=== PATIENT | female | born 1950 | race Caucasian/White ===

== ENCOUNTER 2022-01-29 17:30 | Inpatient (IN) | payer MEDICARE, MEDICAID ==
[~2022-01-29] VITALS: Ht 175.3 cm; Wt 101.8 kg
--- NOTE | 2022-01-29 17:56 | PHYS DOC ---
General Adult EDM: Chief Complaint: MEDICAL CLEARANCE HPI: HPI: 70-year-old female presents for medical clearance of behavioral health admission. She has no specific complaints for me. She tells me that she "hurts all over". She tells me this is been going on for a long time and is not new. The facility reports that the patient has been manic and not sleeping. She has been verbally aggressive and concerned someone is coming after her. (IMANI LEWIS DO) Review of Systems: Review of Systems: Constitutional: Denies fever or chills Eyes: Denies change in visual acuity HENT: Denies nasal congestion or sore throat Respiratory: Denies cough or shortness of breath Cardiovascular: Denies chest pain or edema GI: Denies abdominal pain, nausea, vomiting, bloody stools or diarrhea : Denies dysuria Musculoskeletal: Denies back pain or joint pain Integument: Denies rash Neurologic: Denies headache, focal weakness or sensory changes Endocrine: Denies polyuria or polydipsia Lymphatic: Denies swollen glands Psychiatric: Denies depression or anxiety (IMANI LEWIS DO) Physical Exam: PE: Constitutional: Well developed, well nourished, obese, no acute distress, non- toxic appearance. [] HENT: Normocephalic, atraumatic, bilateral external ears normal, oropharynx mois t, no oral exudates, nose normal. [] Eyes: PERRLA, EOMI, conjunctiva normal, no discharge. [] Neck: Normal range of motion, no tenderness, supple, no stridor. [] Cardiovascular: Heart rate regular rhythm, no murmur [] Lungs & Thorax: Bilateral breath sounds clear to auscultation [] Abdomen: Bowel sounds normal, soft, no tenderness, no masses, no pulsatile masses. [] Skin: Warm, dry, no erythema, no rash. [] Back: No tenderness, no CVA tenderness. [] Extremities: No tenderness, no cyanosis, no clubbing, ROM intact, no edema. [] Neurologic: Alert and oriented X 3, normal motor function, normal sensory function, no focal deficits noted. [] Psychologic: Affect normal, judgement normal, mood normal. [] (IMANI LEWIS DO) EKG: EKG: [] (IMANI LEWIS DO) Radiology/Procedures: Radiology/Procedures: [] (IMANI LEWIS DO) Heart Score: C/O Chest Pain: N/A Risk Factors: Risk Factors: DM, Current or recent (<one month) smoker, HTN, HLP, family history of CAD, obesity. Risk Scores: Score 0 - 3: 2.5% MACE over next 6 weeks - Discharge Home Score 4 - 6: 20.3% MACE over next 6 weeks - Admit for Clinical Observation Score 7 - 10: 72.7% MACE over next 6 weeks - Early Invasive Strategies (IMANI LEWIS DO) Course & Med Decision Making: Course & Med Decision Making Pertinent Labs and Imaging studies reviewed. (See chart for details) The patient's work-up is pending. I am signing her out to the sales and marketing vice president at 1800. [] (IMANI LEWIS DO) Course & Med Decision Making Patient care handed off to me at checkout pending COVID status for transfer to [facility]. Patient alert and oriented no acute distress. Vital signs normal for mild hypertension. Laboratory analysis not concerning. COVID- negative. Patient transferred to [facility]. (SIM BRUOSSARD MD) Dragon Disclaimer: Dragon Disclaimer: This electronic medical record was generated, in whole or in part, using a voice recognition dictation system. (IMANI LEWIS DO) Departure Departure: Impression: Primary Impression: Medical clearance for psychiatric admission Disposition: HOME / SELF CARE / HOMELESS Admitting Physician: Other (SIM BROUSSARD MD) Condition: STABLE IMANI LEWIS DO January 29, 2022 17:56 SIM BROUSSARD MD January 29, 2022 21:16
[2022-01-29 18:24] LABS: CALCIUM 9.7 mg/dL (8.5-10.1); GFR 54.7; POTASSIUM 3.3 mmol/L (3.5-5.1)
[2022-01-29 18:26] LABS: BASO % 0 % (0-3); EOS % 0 % (0-3); HEMATOCRIT 41.2 % (36.0-47.0); HEMOGLOBIN 13.7 g/dL (12.0-15.5); LYMPH # 1.4 x10^3/uL (1.0-4.8); LYMPH % 18 % (24-48); MEAN CORPUSCULAR HEMOGLOBIN 30 pg (25-35); MEAN CORPUSCULAR HGB CONC 33 g/dL (31-37); MEAN CORPUSCULAR VOLUME 91 fL (79-100); MONO # 0.6 x10^3/uL (0.0-1.1); MONO % 8 % (0-9); NEUT # 5.8 x10^3uL (1.8-7.7); NEUT % 74 % (31-73); PLATELET COUNT 189 x10^3/uL (140-400); RED BLOOD COUNT 4.52 x10^6/uL (3.50-5.40); RED CELL DISTRIBUTION WIDTH 13.8 % (11.5-14.5); WHITE BLOOD COUNT 7.9 x10^3/uL (4.0-11.0)
[2022-01-29] MEDS ORDERED: BIOT5TAB PO (18:27)
[2022-01-29] MEDS ORDERED: ASPI-889 PO (18:27)
[2022-01-29] MEDS ORDERED: ACET500T68 PO (18:27)
[2022-01-29] MEDS ORDERED: DIVA125T PO (18:27)
[2022-01-29] MEDS ORDERED: NITR100C PO (18:27)
[2022-01-29] MEDS ORDERED: MULT-129 PO (18:27)
[2022-01-29] MEDS ORDERED: LORA-254 PO (18:27)
[2022-01-29] MEDS ORDERED: GLUC1KIT IM (18:27)
[2022-01-29] MEDS ORDERED: HALO5TAB PO (18:27)
[2022-01-29] MEDS ORDERED: TRAZ-120 PO ×2 (18:27→22:45)
[2022-01-29] MEDS ORDERED: MELA3TAB4 PO (18:27)
[2022-01-29] MEDS ORDERED: DEXT37.56 PO (18:27)
[2022-01-29] MEDS ORDERED: SENN1TAB37 PO (18:27)
[2022-01-29] MEDS ORDERED: CYAN100031 PO (18:27)
[2022-01-29] MEDS ORDERED: CARB1DRO40 EACHEYE (18:27)
[2022-01-29] MEDS ORDERED: METF500T16 PO (18:27)
[2022-01-29] MEDS ORDERED: AMAN100T PO (18:27)
[2022-01-29] MEDS ORDERED: INSU100V13 SQ (18:27)
[2022-01-29] MEDS ORDERED: ACYC-12 PO (18:27)
[2022-01-29] MEDS ORDERED: OLAN10TA69 PO (18:27)
[2022-01-29] MEDS ORDERED: LEVO50TA5 PO (18:27)
[2022-01-29] MEDS ORDERED: LACT1CAP6 PO (18:27)
[2022-01-29] MEDS ORDERED: POLY17PO5 PO (18:27)
[2022-01-29] MEDS ORDERED: SALI44.3 MM (18:27)
[2022-01-29] MEDS ORDERED: GLIM2TAB7 PO (18:27)
[2022-01-29] MEDS ORDERED: LURA80TA2 PO (18:27)
[2022-01-29] MEDS ORDERED: BISA10SU4 RC (18:27)
[2022-01-29] MEDS ORDERED: CHOL10004 PO (18:27)
[2022-01-29 18:29] LABS: ALBUMIN 3.9 g/dL (3.4-5.0); ALBUMIN/GLOBULIN RATIO 1.2 (1.0-1.7); TOTAL BILIRUBIN 0.6 mg/dL (0.2-1.0); TOTAL PROTEIN 7.1 g/dL (6.4-8.2)
[2022-01-29 18:46] LABS: CLARITY,URINE CLEAR; COLOR,URINE YELLOW; GLUCOSE,URINE NEG (NEG)
[2022-01-29 18:47] LABS: BACTERIA,URINE 0 /HPF (0-FEW); NITRITE,URINE NEG (NEG); RBC,URINE 0 /HPF (0-2); SQUAMOUS EPITHELIAL CELL,UR FEW /LPF; UROBILINOGEN,URINE 0.2 mg/dL (0.2 mg/dL); WBC,URINE 0 /HPF (0-4)
[2022-01-29] MEDS ORDERED: POTASSIUM CHLORIDE 20 MEQ TABLET.ER. PO ONE ×2 (21:30)
[2022-01-29 21:58] VITALS: BP 164/85
[2022-01-29] MEDS ORDERED: MAG HYDROX/AL HYDROX/SIMETH 30 ML ORAL.SUSP PO PRN (22:00)
[2022-01-29] MEDS ORDERED: METHYL SALICYLATE/MENTHOL TOPICAL OINTMENT 57GM TUBE. TP PRN (22:00)
[2022-01-29] MEDS ORDERED: ACETAMINOPHEN 325 MG TABLET PO PRN (22:00)
[2022-01-29] MEDS ORDERED: SALIVA STIMULANT AGENT 44ML SPRAY BOTTLE. MM PRN (22:15)
[2022-01-29] MEDS ORDERED: traZODone 50 MG TABLET. PO PRN (22:15)
[2022-01-29] MEDS ORDERED: BISACODYL 10 MG SUPP.RECT RC PRN (22:15)
[2022-01-29] MEDS ORDERED: GLUCAGON,HUMAN RECOMBINANT 1 MG KIT. IM PRN (23:15)
[2022-01-29] MEDS: POLYVINYL ALCOHOL/POVIDONE/PF OPHTH SOLUTION DROPERETTE. OU SCH (23:41)
[2022-01-29] MEDS: HALOPERIDOL 5 MG TABLET PO SCH (23:42)
[2022-01-29] MEDS: MELATONIN 3 MG TABLET PO SCH (23:42)
[2022-01-29] MEDS: SENNOSIDES/DOCUSATE 8.6/50MG TABLET. PO SCH (23:42)
[2022-01-29] MEDS: LORazepam 1 MG TABLET PO SCH (23:42)
[2022-01-29] MEDS: DIVALPROEX SODIUM 125 MG TABLET.DR. PO SCH (23:42)
[2022-01-29] MEDS: OLANZapine 10 MG TABLET PO SCH (23:43)
[2022-01-29] MEDS: traZODone 50 MG TABLET. PO SCH (23:43)
[2022-01-29] MEDS: ACYCLOVIR 200 MG CAPSULE PO SCH (23:44)
[2022-01-29] MEDS: INSULIN GLARGINE SYRINGE. SQ SCH (23:45)
[2022-01-30] MEDS: LEVOTHYROXINE 50 MCG TABLET PO SCH (06:00)
[2022-01-30 06:30] VITALS: BP 137/69
[2022-01-30 06:55] LABS: VAL ACID 27 mcg/mL (50-100)
[2022-01-30] MEDS: SENNOSIDES/DOCUSATE 8.6/50MG TABLET. PO SCH ×3 (09:00→20:32)
[2022-01-30] MEDS ORDERED: BIOTIN 5 MG PO SCH (09:00)
[2022-01-30] MEDS: HALOPERIDOL 5 MG TABLET PO SCH ×2 (09:15→20:34)
[2022-01-30] MEDS: MULTIVITAMIN with MINERAL TABLET. PO SCH (09:15)
[2022-01-30] MEDS: metFORMIN 500 MG TABLET PO SCH ×2 (09:16→17:35)
[2022-01-30] MEDS: ASPIRIN ENTERIC COATED 81 MG TABLET.DR. PO SCH (09:16)
[2022-01-30] MEDS: CHOLECALCIFEROL (VITAMIN D3) 1,000 UNIT TABLET PO SCH (09:16)
[2022-01-30] MEDS: OLANZapine 10 MG TABLET PO SCH ×2 (09:16→20:34)
[2022-01-30] MEDS: LORazepam 1 MG TABLET PO SCH ×2 (09:16→13:58)
[2022-01-30] MEDS: LACTOBACILLUS RHAMNOSUS GG 1 CAPSULE. PO SCH (09:16)
[2022-01-30] MEDS: POLYVINYL ALCOHOL/POVIDONE/PF OPHTH SOLUTION DROPERETTE. OU SCH ×2 (09:16→20:32)
[2022-01-30] MEDS: CYANOCOBALAMIN (VITAMIN B-12) 1,000 MCG TABLET. PO SCH (09:16)
[2022-01-30] MEDS: DIVALPROEX SODIUM 125 MG TABLET.DR. PO SCH ×2 (09:16→13:59)
[2022-01-30] MEDS: GLIMEPIRIDE 2 MG TABLET PO SCH (09:18)
[2022-01-30] MEDS: POLYETHYLENE GLYCOL 3350 17 GM PACKET. PO SCH ×2 (09:18→09:30)
[2022-01-30] MEDS: LURASIDONE 40 MG TABLET. PO SCH (09:23)
[2022-01-30] MEDS: ACYCLOVIR 200 MG CAPSULE PO SCH ×2 (09:24→20:32)
[2022-01-30 14:12] LABS: THYROXINE 8.7 ug/dL (4.5-12.0)
[2022-01-30] MEDS ORDERED: LORazepam 1 MG TABLET PO PRN (17:00)
[2022-01-30] MEDS: NITROFURANTOIN MONOHYD/M-CRYST 100 MG CAPSULE. PO SCH (20:32)
[2022-01-30] MEDS: MELATONIN 3 MG TABLET PO SCH (20:32)
[2022-01-30] MEDS: DIVALPROEX ER 250 MG TAB.ER.24H. PO SCH (20:33)
[2022-01-30] MEDS: traZODone 50 MG TABLET. PO SCH (20:34)
[2022-01-30] MEDS: INSULIN GLARGINE SYRINGE. SQ SCH (20:36)
[2022-01-30] MEDS ORDERED: SENNOSIDES/DOCUSATE 8.6/50MG TABLET. PO PRN (21:00)
[2022-01-30] MEDS ORDERED: POLYMYXIN/TRIMETHOPRIM OPHTH SOLUTION 10ML BOTTLE. OU SCH (21:00)
[2022-01-30 21:03] LABS: CHOLESTEROL/HDL RATIO 2.9; THYROID STIM HORMONE (TSH) 0.586 uIU/mL (0.358-3.740)
--- NOTE | 2022-01-30 21:48 | PDOC ---
Exam Note: Zay Note: Please also refer to the separate dictated note~for this date of service dictated separately.~Patient seen individually. Discussed the patient with Nursing staff reviewed the chart.~Reviewed interim history and current functioning. Reviewed vital signs,~Labs/ Radiology~and current medications noted below. Continue current treatment with the changes noted in the dictated addendum note Assessment: Vital Signs/I&O: Vital Signs Date Time Temp Pulse Resp B/P (MAP) Pulse Ox O2 Delivery O2 Flow Rate FiO2 01/30/22 06:30 97.6 88 20 137/69 (91) 96 Room Air I & O 01/29/22 01/29/22 01/30/22 15:00 23:00 07:00 Intake Total 0 ml 300 ml Balance 0 ml 300 ml Labs: Laboratory Tests Test 01/29/22 22:27 01/30/22 06:30 01/30/22 19:10 Glucose (Fingerstick) 169 mg/dL (70-99) H 165 mg/dL (70-99) H D-Dimer (Kalyani) 0.40 mg/L (0.00-0.50) Magnesium Level 1.9 mg/dL (1.8-2.4) Iron Level 33 ug/dL (50-170) L Total Iron Binding Capacity 252 ug/dL (250-450) Iron Saturation 13 % (15-34) L Triglycerides Level 101 mg/dL (0-150) Cholesterol Level 124 mg/dL (0-200) LDL Cholesterol, Calculated 61 mg/dL (0-100) VLDL Cholesterol, Calculated 20 mg/dL (0-40) Non-HDL Cholesterol Calculated 81 mg/dL (0-129) HDL Cholesterol 43 mg/dL (40-60) Cholesterol/HDL Ratio 2.9 25-Hydroxy Vitamin D Total 33.5 ng/mL (30-100) Thyroid Stimulating Hormone (TSH) 0.586 uIU/mL (0.358-3.740) Thyroxine (T4) 8.7 ug/dL (4.5-12.0) Total Triiodothyronine (TT3) 102 ng/dL (71-180) Valproic Acid Level 27 mcg/mL (50-100) L Valproic Acid Last Dose Date 01/29/22 Valproic Acid Last Dose Time 2100 Treponema pallidum Antibody Nonreactive (Nonreactive) Current Medications: Meds: Laboratory Tests Test 01/29/22 22:27 01/30/22 06:30 01/30/22 19:10 Glucose (Fingerstick) 169 mg/dL 165 mg/dL D-Dimer (Kalyani) 0.40 mg/L Magnesium Level 1.9 mg/dL Iron Level 33 ug/dL Total Iron Binding Capacity 252 ug/dL Iron Saturation 13 % Triglycerides Level 101 mg/dL Cholesterol Level 124 mg/dL LDL Cholesterol, Calculated 61 mg/dL VLDL Cholesterol, Calculated 20 mg/dL Non-HDL Cholesterol Calculated 81 mg/dL HDL Cholesterol 43 mg/dL Cholesterol/HDL Ratio 2.9 25-Hydroxy Vitamin D Total 33.5 ng/mL Thyroid Stimulating Hormone (TSH) 0.586 uIU/mL Thyroxine (T4) 8.7 ug/dL Total Triiodothyronine 102 ng/dL Valproic Acid (Depakene) Level 27 mcg/mL Valproic Acid Last Dose Date 01/29/22 Valproic Acid Last Dose Time 2100 Treponema pallidum Antibody Nonreactive Current Medications Medications (Trade) Dose Ordered Sig/Jhony Route PRN Reason Start Time Stop Time Status Last Admin Dose Admin Potassium Chloride (Klor-Con) 40 meq 1X ONCE PO 01/29/22 21:30 01/29/22 21:43 DC 01/29/22 21:32 Acetaminophen (Tylenol) 650 mg PRN Q6HRS PRN PO MILD PAIN / TEMP > 100.3'F 01/29/22 22:00 01/29/22 22:57 DC Multi-Ingredient Ointment (Analgesic [place]) 1 izzy PRN QID PRN TP MUSCLE PAIN 01/29/22 22:00 Al Hydroxide/Mg Hydroxide (Mylanta Plus Xs) 15 ml PRN AFTMEALHC PRN PO DYSPEPSIA 01/29/22 22:00 Magnesium Hydroxide (Milk Of Magnesia) 2,400 mg PRN QHS PRN PO 1ST CHOICE CONSTIPATION 01/29/22 22:00 Acetaminophen (Tylenol) 500 mg PRN Q4HRS PRN PO PAIN 01/29/22 22:15 Aspirin (Aspirin Enteric Coated) 81 mg DAILY PO 01/30/22 09:00 01/30/22 09:16 Bisacodyl (Dulcolax Supp) 10 mg PRN DAILY PRN RC 2ND CHOICE CONSTIPATION 01/29/22 22:15 Vitamin D (Vitamin D3) 2,000 unit DAILY PO 01/30/22 09:00 01/30/22 09:16 Glucose (Insta-Glucose) 15 gm PRN Q15MIN PRN PO low blood sugar 01/29/22 22:15 Divalproex Sodium (Depakote) 125 mg TID PO 01/29/22 23:00 01/30/22 16:59 DC 01/30/22 13:59 Glimepiride (Amaryl) 2 mg DAILY PO 01/30/22 09:00 01/30/22 09:18 Haloperidol (Haldol) 2.5 mg BID PO 01/29/22 23:00 01/30/22 20:34 Levothyroxine Sodium (Synthroid) 50 mcg DAILY06 PO 01/30/22 06:00 01/30/22 06:00 Lorazepam (Ativan) 1 mg TID PO 01/29/22 23:00 01/30/22 16:59 DC 01/30/22 13:58 Melatonin (Melatonin) 6 mg QHS PO 01/29/22 23:00 01/30/22 20:32 Metformin HCl (Glucophage) 1,000 mg BIDWMEALS PO 01/30/22 08:00 01/30/22 17:35 Olanzapine (ZyPREXA) 10 mg BID PO 01/29/22 23:00 01/30/22 20:34 Polyethylene Glycol (miraLAX) 17 gm DAILY PO 01/30/22 09:00 Saliva Substitute (Biotene Moisturizing Mouth) 1 spray PRN Q4HRS PRN MM DRY MOUTH 01/29/22 22:15 Senna/Docusate Sodium (Senna Plus) 1 tab BID PO 01/29/22 23:00 01/30/22 20:52 DC 01/29/22 23:42 Trazodone HCl (Desyrel) 50 mg PRN QHS PRN PO INSOMNIA 01/29/22 22:15 Trazodone HCl (Desyrel) 50 mg QHS PO 01/29/22 23:00 01/30/22 20:34 Acyclovir (Zovirax) 400 mg BID PO 01/29/22 23:00 01/30/22 20:32 Non-Formulary Medication (Biotin ) 5 mg DAILY PO 01/30/22 09:00 01/29/22 23:06 DC Artificial Tears (Refresh Classic) 1 drop BID OU 01/29/22 23:00 01/30/22 20:32 Cyanocobalamin (Vitamin B-12) 1,000 mcg DAILY PO 01/30/22 09:00 01/30/22 09:16 Glucagon (Glucagen Kit) 1 mg PRN DAILY PRN IM BS<60 and unresponsive or NPO 01/29/22 23:15 Insulin Glargine (Lantus Syringe) 30 unit QHS SQ 01/29/22 23:00 01/30/22 20:36 Lactobacillus Rhamnosus (Culturelle) 1 cap DAILY PO 01/30/22 09:00 01/30/22 09:16 Lurasidone HCl (Latuda) 80 mg DAILY PO 01/30/22 09:00 01/30/22 09:23 Multivitamins/ Calcium (Thera-M Plus) 1 tab DAILY PO 01/30/22 09:00 01/30/22 09:15 Nitrofurantoin Macrocrystals (Macrobid) 100 mg QHS PO 01/30/22 21:00 01/30/22 20:32 Lorazepam (Ativan) 0.5 mg BID PO 01/31/22 09:00 Lorazepam (Ativan) 1 mg PRN QHS PRN PO ANXIETY / AGITATION 01/30/22 17:00 Divalproex Sodium (Depakote Er) 750 mg QHS PO 01/30/22 21:00 01/30/22 20:33 Senna/Docusate Sodium (Senna Plus) 1 tab PRN BID PRN PO CONSTIPATION 01/30/22 21:00 Polymyxin/ Trimethoprim Sulfate (Polytrim) 1 drop QID OU 01/30/22 21:00 02/09/22 20:59 Current Medications Medications (Trade) Dose Ordered Sig/Jhony Route PRN Reason Start Time Stop Time Status Last Admin Dose Admin Aspirin (Aspirin Enteric Coated) 81 mg DAILY PO 01/30/22 09:00 01/30/22 09:16 Vitamin D (Vitamin D3) 2,000 unit DAILY PO 01/30/22 09:00 01/30/22 09:16 Divalproex Sodium (Depakote) 125 mg TID PO 01/29/22 23:00 01/30/22 16:59 DC 01/30/22 13:59 Glimepiride (Amaryl) 2 mg DAILY PO 01/30/22 09:00 01/30/22 09:18 Haloperidol (Haldol) 2.5 mg BID PO 01/29/22 23:00 01/30/22 20:34 Levothyroxine Sodium (Synthroid) 50 mcg DAILY06 PO 01/30/22 06:00 01/30/22 06:00 Lorazepam (Ativan) 1 mg TID PO 01/29/22 23:00 01/30/22 16:59 DC 01/30/22 13:58 Melatonin (Melatonin) 6 mg QHS PO 01/29/22 23:00 01/30/22 20:32 Metformin HCl (Glucophage) 1,000 mg BIDWMEALS PO 01/30/22 08:00 01/30/22 17:35 Olanzapine (ZyPREXA) 10 mg BID PO 01/29/22 23:00 01/30/22 20:34 Senna/Docusate Sodium (Senna Plus) 1 tab BID PO 01/29/22 23:00 01/30/22 20:52 DC 01/29/22 23:42 Trazodone HCl (Desyrel) 50 mg QHS PO 01/29/22 23:00 01/30/22 20:34 Acyclovir (Zovirax) 400 mg BID PO 01/29/22 23:00 01/30/22 20:32 Artificial Tears (Refresh Classic) 1 drop BID OU 01/29/22 23:00 01/30/22 20:32 Cyanocobalamin (Vitamin B-12) 1,000 mcg DAILY PO 01/30/22 09:00 01/30/22 09:16 Insulin Glargine (Lantus Syringe) 30 unit QHS SQ 01/29/22 23:00 01/30/22 20:36 Lactobacillus Rhamnosus (Culturelle) 1 cap DAILY PO 01/30/22 09:00 01/30/22 09:16 Lurasidone HCl (Latuda) 80 mg DAILY PO 01/30/22 09:00 01/30/22 09:23 Multivitamins/ Calcium (Thera-M Plus) 1 tab DAILY PO 01/30/22 09:00 01/30/22 09:15 Nitrofurantoin Macrocrystals (Macrobid) 100 mg QHS PO 01/30/22 21:00 01/30/22 20:32 Divalproex Sodium (Depakote Er) 750 mg QHS PO 01/30/22 21:00 01/30/22 20:33 I have reviewed the current psychotropics carefully including drug interactions. Risk benefit ratio favors no change other than as noted in my dictated progress note. Diagnosis: Problems: (1) Schizophrenia, chronic with acute exacerbation (2) Bipolar disorder, current episode mixed, severe, with psychotic features (3) Anxiety disorder, unspecified (4) Impulse control disorder, unspecified (5) Mild cognitive impairment PHI GLASER MD January 30, 2022 21:48
[2022-01-30 21:52] VITALS: BP 145/81
--- NOTE | 2022-01-30 22:30 | HP ---
DATE OF SERVICE: 01/30/2022 ADMIT DATE: 01/29/2022 PSYCHIATRIC ADMISSION HISTORY/EVALUATION IDENTIFYING DATA: The patient is a 71-year-old female referred to us from [facility] by her primary care physician and psychiatric nurse practitioner, Diego, on account of an acute exacerbation of her schizophrenia versus bipolar disorder, mixed with psychotic features. The patient was restless, constantly moving, having racing thoughts, had been awake for 3 nights. She was noted to be manic, thinking someone is coming to pick her up. She is obsessed with her body and saw a man coming to get her. She had failed outpatient psychiatric interventions resulting in this referral. Discussed the patient with Callie Trent, severity of illness coordinator, reviewed information from the senior care. Discussed with DEBORAH Lane and I had also been called as an emergency around 11:00 p.m. last night by Daria De La Rosa RN to clarify the patient's admitting psychotropic medications since there was an element of polypharmacy in it. CHIEF COMPLAINT: "I was diagnosed with bipolar disorder in my 50s. Yes, I have been manic lately. I need my medications adjusted. I can't take lithium because look what swelling it caused me." The patient was showing me her lower extremities as she said this. HISTORY OF PRESENT ILLNESS: The patient reportedly has a long history of bipolar disorder, recently getting more angry, aggressive, psychotic with marked mood swings, agitation, disruptive behaviors. She has had significant insomnia, appetite and weight are stable. No active suicidal or homicidal ideation. PAST PSYCHIATRIC HISTORY: As above. MEDICAL HISTORY: Positive for seizure disorder, chronic kidney disease, type 2 diabetes mellitus, catatonic disorder, obesity, urinary retention, history of rhabdomyolysis, sinusitis, viral herpes, chronic constipation, hypothyroidism, intervertebral disk degeneration, lumbago, sciatica, abnormal posture, GERD, dry eyes, history of recurrent falls. DRUG ALLERGIES: CODEINE. FAMILY HISTORY: Noncontributory. 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 No alcohol, drug abuse history. No physical, sexual or elder abuse history is noted. She is not known to be a perpetrator. REACTION TO HOSPITALIZATION: The patient accepting of it. REVIEW OF SYSTEMS: Ambulation impaired, in wheelchair. I met with her at length in her room. No CV, , pulmonary, eye system symptoms on review. MENTAL STATUS EXAM: The patient is oriented to herself, situation, knew she was admitted yesterday. Speech has some latency, coherent, often responses monosyllabic. Abstraction fair. Computation impaired. Language function intact. Mood and affect withdrawn. She is somewhat isolated. IMPRESSION: Schizoaffective disorder, bipolar type, manic versus mixed with psychotic features; history of schizophrenia with acute exacerbation; mild cognitive impairment; anxiety disorder, unspecified; impulse control disorder, unspecified. CURRENT PSYCHOTROPICS: She is currently on Depakote delayed release 125 mg t.i.d., Haldol 2.5 mg b.i.d., Ativan 1 mg t.i.d., Latuda 80 mg a day, Zyprexa 10 mg b.i.d., trazodone 50 mg at bedtime p.r.n., january repeat x1; melatonin 6 mg at bedtime. Accu-Cheks b.i.d. DIET: Diabetic. Ambulates with walker, wheelchair. CODE STATUS: Full code. PLAN: Admit to Geropsychiatry unit at [facility]. I discussed with DEBORAH Lane today. The patient appears oversedated and we will reduce her Ativan 1 mg t.i.d. down to 0.5 mg b.i.d., 1 mg at bedtime. Valproic acid level today is 27, subtherapeutic on Depakote delayed release 125 mg t.i.d. We will increase this to Depakote extended release 750 mg at bedtime. Check CBC, CMP, valproic acid level in 3 days. Maintain Haldol 2.5 mg b.i.d., Zyprexa 10 mg b.i.d., trazodone at bedtime p.r.n., Latuda 80 mg a day. Adjust further as clinically indicated. ESTIMATED LENGTH OF STAY: 10-12 days. DISPOSITION PLAN: Back to senior care when stable. SHAAN/NATTY DR: Kevin TID: [id number]
--- NOTE | 2022-01-31 00:53 | CONS ---
DATE OF CONSULTATION: 01/30/2022 ATTENDING PHYSICIAN: Dr. Glaser. We are asked to see this patient for medical consultation. HISTORY OF PRESENT ILLNESS: The patient is a 71-year-old female from a local alf at [place], [place]. She has a longstanding history of schizoaffective disorder along with bipolar disease. She has been very restless, constantly moving about, racing thoughts, paranoid, obsessed with her body. She is hallucinating and being uncooperative. She was admitted then to the [facility] for medical management. PAST MEDICAL HISTORY: Significant for catatonia, gastroesophageal reflux disease, dry eye syndrome and chronic kidney disease. ALLERGIES: SHE HAS ALLERGIES TO CODEINE, EXACT REACTION IS UNCLEAR. CURRENT MEDICATIONS: Reviewed from the alf includes daily acyclovir, aspirin, biotin, bisacodyl, carboxymethylcellulose eye drops, cyanocobalamin, dextrose, Depakote, glimepiride, Haldol 5 mg b.i.d., regular and Lantus insulin, lactobacillus, Synthroid, lorazepam, Latuda, melatonin, metformin, multivitamin, Macrodantin, olanzapine, MiraLax, senna, trazodone and vitamin D. SOCIAL HISTORY: She is a nonsmoker, nondrinker. FAMILY HISTORY: Unobtainable. REVIEW OF SYSTEMS: Unobtainable. She is self propelled and mainly gets about in a wheelchair. PHYSICAL EXAMINATION: GENERAL: When I saw her, this is an elderly female in a wheelchair. She is not aware of what the place and time. VITAL SIGNS: Initial vital signs showed a blood pressure 137/69 mmHg, pulse is 88 per minute and regular. She was afebrile, oxygen saturation 96% on room air. HEENT: Head is without trauma. Pupils are reactive. Sclerae are nonicteric. The oropharynx is clear. NECK: Supple. There is no thyromegaly nor bruits. CARDIOVASCULAR: Showed regular heart tones. No gallops. LUNGS: Otherwise, clear to auscultation. ABDOMEN: Obese, protuberant. No organomegaly. Bowel sounds are normoactive. EXTREMITIES: Showed 2+ edema. SKIN: Warm and dry. NEUROLOGIC: Affect is flat. She is alert and responsive. PERTINENT LABORATORY STUDIES: Admission hemoglobin was 13.7 g/dL with a white count of 7900. Electrolytes showed sodium 141 mEq, potassium 3.3 mEq, not symptomatic. Nonfasting blood sugar 101 mg/dL. Liver function, transaminases were all normal. Depakote level was 27. Urinalysis was clear. Serology: Rapid COVID negative. ASSESSMENT: 1. This 71-year-old female from a local alf has an exacerbation of her bipolar disorder. 2. Schizoaffective disorder, longstanding. 3. Morbid obesity. 4. Type 2 diabetes. 5. Essential hypertension. 6. Degenerative arthritis. RECOMMENDATIONS: 1. I have reviewed patient's medications and they should be continued at the same dosages. 2. She is stable from a medical standpoint. Thank you again for asking me to see this patient for medical consultation. We shall gladly follow along during her inpatient stay. YOVANNY DR: Ailyn TID: [phone] CC: PHI GLASER MD
[2022-01-31 02:07] LABS: HEMOGLOBIN A1C 5.4 % (4.8-5.6)
[2022-01-31] MEDS: LEVOTHYROXINE 50 MCG TABLET PO SCH (04:57)
[2022-01-31 06:04] VITALS: BP 110/64
[2022-01-31] MEDS: metFORMIN 500 MG TABLET PO SCH ×2 (08:24→17:39)
[2022-01-31] MEDS: CYANOCOBALAMIN (VITAMIN B-12) 1,000 MCG TABLET. PO SCH (08:24)
[2022-01-31] MEDS: MULTIVITAMIN with MINERAL TABLET. PO SCH (08:24)
[2022-01-31] MEDS: CHOLECALCIFEROL (VITAMIN D3) 1,000 UNIT TABLET PO SCH (08:24)
[2022-01-31] MEDS: ASPIRIN ENTERIC COATED 81 MG TABLET.DR. PO SCH (08:24)
[2022-01-31] MEDS: GLIMEPIRIDE 2 MG TABLET PO SCH (08:24)
[2022-01-31] MEDS: HALOPERIDOL 5 MG TABLET PO SCH ×2 (08:24→20:56)
[2022-01-31] MEDS: OLANZapine 10 MG TABLET PO SCH ×2 (08:25→20:57)
[2022-01-31] MEDS: ACYCLOVIR 200 MG CAPSULE PO SCH ×2 (08:25→20:57)
[2022-01-31] MEDS: LACTOBACILLUS RHAMNOSUS GG 1 CAPSULE. PO SCH (08:25)
[2022-01-31] MEDS: LORazepam 0.5 MG TABLET PO SCH ×2 (08:25→20:54)
[2022-01-31] MEDS: LURASIDONE 40 MG TABLET. PO SCH (08:25)
[2022-01-31] MEDS: POLYVINYL ALCOHOL/POVIDONE/PF OPHTH SOLUTION DROPERETTE. OU SCH ×2 (08:25→20:54)
[2022-01-31] MEDS: POLYETHYLENE GLYCOL 3350 17 GM PACKET. PO SCH (08:25)
[2022-01-31] MEDS: POLYMYXIN/TRIMETHOPRIM OPHTH SOLUTION 10ML BOTTLE. OD SCH ×4 (08:26→20:54)
[2022-01-31 16:13] VITALS: BP 157/87
[2022-01-31] MEDS: DIVALPROEX ER 250 MG TAB.ER.24H. PO SCH (20:54)
[2022-01-31] MEDS: traZODone 50 MG TABLET. PO SCH (20:55)
[2022-01-31] MEDS: MELATONIN 3 MG TABLET PO SCH (20:56)
[2022-01-31] MEDS: NITROFURANTOIN MONOHYD/M-CRYST 100 MG CAPSULE. PO SCH (20:56)
[2022-01-31] MEDS: INSULIN GLARGINE SYRINGE. SQ SCH (20:59)
--- NOTE | 2022-01-31 21:36 | PDOC ---
Exam Note: Zay Note: Please also refer to the separate dictated note~for this date of service dictated separately.~Patient seen individually. Discussed the patient with Nursing staff reviewed the chart.~Reviewed interim history and current functioning. Reviewed vital signs,~Labs/ Radiology~and current medications noted below. Continue current treatment with the changes noted in the dictated addendum note Assessment: Vital Signs/I&O: Vital Signs Date Time Temp Pulse Resp B/P (MAP) Pulse Ox O2 Delivery O2 Flow Rate FiO2 01/31/22 16:13 98.0 94 16 157/87 (110) 96 Room Air I & O 01/30/22 01/30/22 01/31/22 15:00 23:00 07:00 Intake Total 360 ml 600 ml Balance 360 ml 600 ml Labs: Laboratory Tests Test 01/31/22 07:33 01/31/22 19:10 Glucose (Fingerstick) 125 mg/dL (70-99) H 148 mg/dL (70-99) H Current Medications: Meds: Laboratory Tests Test 01/31/22 07:33 01/31/22 19:10 Glucose (Fingerstick) 125 mg/dL 148 mg/dL Current Medications Medications (Trade) Dose Ordered Sig/Jhony Route PRN Reason Start Time Stop Time Status Last Admin Dose Admin Potassium Chloride (Klor-Con) 40 meq 1X ONCE PO 01/29/22 21:30 01/29/22 21:43 DC 01/29/22 21:32 Acetaminophen (Tylenol) 650 mg PRN Q6HRS PRN PO MILD PAIN / TEMP > 100.3'F 01/29/22 22:00 01/29/22 22:57 DC Multi-Ingredient Ointment (Analgesic [place]) 1 izzy PRN QID PRN TP MUSCLE PAIN 01/29/22 22:00 Al Hydroxide/Mg Hydroxide (Mylanta Plus Xs) 15 ml PRN AFTMEALHC PRN PO DYSPEPSIA 01/29/22 22:00 Magnesium Hydroxide (Milk Of Magnesia) 2,400 mg PRN QHS PRN PO 1ST CHOICE CONSTIPATION 01/29/22 22:00 Acetaminophen (Tylenol) 500 mg PRN Q4HRS PRN PO PAIN 01/29/22 22:15 Aspirin (Aspirin Enteric Coated) 81 mg DAILY PO 01/30/22 09:00 01/31/22 08:24 Bisacodyl (Dulcolax Supp) 10 mg PRN DAILY PRN RC 2ND CHOICE CONSTIPATION 01/29/22 22:15 Vitamin D (Vitamin D3) 2,000 unit DAILY PO 01/30/22 09:00 01/31/22 08:24 Glucose (Insta-Glucose) 15 gm PRN Q15MIN PRN PO low blood sugar 01/29/22 22:15 Divalproex Sodium (Depakote) 125 mg TID PO 01/29/22 23:00 01/30/22 16:59 DC 01/30/22 13:59 Glimepiride (Amaryl) 2 mg DAILY PO 01/30/22 09:00 01/31/22 08:24 Haloperidol (Haldol) 2.5 mg BID PO 01/29/22 23:00 01/31/22 20:56 Levothyroxine Sodium (Synthroid) 50 mcg DAILY06 PO 01/30/22 06:00 01/31/22 04:57 Lorazepam (Ativan) 1 mg TID PO 01/29/22 23:00 01/30/22 16:59 DC 01/30/22 13:58 Melatonin (Melatonin) 6 mg QHS PO 01/29/22 23:00 01/31/22 20:56 Metformin HCl (Glucophage) 1,000 mg BIDWMEALS PO 01/30/22 08:00 01/31/22 17:39 Olanzapine (ZyPREXA) 10 mg BID PO 01/29/22 23:00 01/31/22 20:57 Polyethylene Glycol (miraLAX) 17 gm DAILY PO 01/30/22 09:00 01/31/22 08:25 Saliva Substitute (Biotene Moisturizing Mouth) 1 spray PRN Q4HRS PRN MM DRY MOUTH 01/29/22 22:15 Senna/Docusate Sodium (Senna Plus) 1 tab BID PO 01/29/22 23:00 01/30/22 20:52 DC 01/29/22 23:42 Trazodone HCl (Desyrel) 50 mg PRN QHS PRN PO INSOMNIA 01/29/22 22:15 Trazodone HCl (Desyrel) 50 mg QHS PO 01/29/22 23:00 01/31/22 20:55 Acyclovir (Zovirax) 400 mg BID PO 01/29/22 23:00 01/31/22 20:57 Non-Formulary Medication (Biotin ) 5 mg DAILY PO 01/30/22 09:00 01/29/22 23:06 DC Artificial Tears (Refresh Classic) 1 drop BID OU 01/29/22 23:00 01/31/22 20:54 Cyanocobalamin (Vitamin B-12) 1,000 mcg DAILY PO 01/30/22 09:00 01/31/22 08:24 Glucagon (Glucagen Kit) 1 mg PRN DAILY PRN IM BS<60 and unresponsive or NPO 01/29/22 23:15 Insulin Glargine (Lantus Syringe) 30 unit QHS SQ 01/29/22 23:00 01/31/22 20:59 Lactobacillus Rhamnosus (Culturelle) 1 cap DAILY PO 01/30/22 09:00 01/31/22 08:25 Lurasidone HCl (Latuda) 80 mg DAILY PO 01/30/22 09:00 01/31/22 08:25 Multivitamins/ Calcium (Thera-M Plus) 1 tab DAILY PO 01/30/22 09:00 01/31/22 08:24 Nitrofurantoin Macrocrystals (Macrobid) 100 mg QHS PO 01/30/22 21:00 01/31/22 20:56 Lorazepam (Ativan) 0.5 mg BID PO 01/31/22 09:00 01/31/22 20:54 Lorazepam (Ativan) 1 mg PRN QHS PRN PO ANXIETY / AGITATION 01/30/22 17:00 Divalproex Sodium (Depakote Er) 750 mg QHS PO 01/30/22 21:00 01/31/22 20:54 Senna/Docusate Sodium (Senna Plus) 1 tab PRN BID PRN PO CONSTIPATION 01/30/22 21:00 Polymyxin/ Trimethoprim Sulfate (Polytrim) 1 drop QID OU 01/30/22 21:00 01/30/22 23:42 DC 01/30/22 21:00 Polymyxin/ Trimethoprim Sulfate (Polytrim) 1 drop QID OD 01/31/22 09:00 02/10/22 08:59 01/31/22 20:54 Current Medications Medications (Trade) Dose Ordered Sig/Jhoyn Route PRN Reason Start Time Stop Time Status Last Admin Dose Admin Lorazepam (Ativan) 0.5 mg BID PO 01/31/22 09:00 01/31/22 20:54 Polymyxin/ Trimethoprim Sulfate (Polytrim) 1 drop QID OD 01/31/22 09:00 02/10/22 08:59 01/31/22 20:54 I have reviewed the current psychotropics carefully including drug interactions. Risk benefit ratio favors no change other than as noted in my dictated progress note. Diagnosis: Problems: (1) Schizophrenia, chronic with acute exacerbation (2) Impulse control disorder, unspecified (3) Anxiety disorder, unspecified (4) Bipolar disorder, current episode mixed, severe, with psychotic features (5) Mild cognitive impairment PHI GLASER MD January 31, 2022 21:36
[2022-02-01 06:08] VITALS: BP 147/74
[2022-02-01] MEDS: LEVOTHYROXINE 50 MCG TABLET PO SCH (06:11)
--- NOTE | 2022-02-01 06:36 | PDOC ---
Exam Note: Zay Note: This note is a late entry for 01/31/2022 covers elements not covered in my initial note. Subjective: The patient was seen individually on 01/31/2022, discussed and reviewed the chart with Guero CABRERA. The patient slept 6-1/4 hours previous night. She is well oriented to place and situation. She is pleasant. She is frequently calling out for help. She appears helpless but able to do more for herself including transfers and she makes it out to be. She is frequently wanting help with toileting. We have obtained past psychiatric records regarding treatment of her bipolar disorder. Review of Systems: Ambulation impaired in wheelchair. Hard of hearing. No CV, , pulmonary, eye system symptoms on review. Mental Status Exam: Patient is reasonably oriented to place and situation. Speech has some latency, coherent. Abstraction fair. Computation impaired. Language function intact. Mood and affect somewhat anxious, labile. Laboratory Data: Reviewed. Impression: Bipolar 1 disorder mixed with psychotic features. Anxiety disorder unspecified. Impulse control disorder unspecified Plan: Continue current psychotropics from initial note. Reviewed drug interactions, risk-benefit ratio. We have increase Depakote ER to 750 mg h.s. We will check labs and valproic acid level in 3 days. Adjust further as clinic ally indicated. Assessment: Vital Signs/I&O: Vital Signs Date Time Temp Pulse Resp B/P (MAP) Pulse Ox O2 Delivery O2 Flow Rate FiO2 02/01/22 06:08 97.8 95 20 147/74 (98) 96 01/31/22 16:13 Room Air I & O 01/31/22 01/31/22 02/01/22 15:00 23:00 07:00 Intake Total 720 ml 500 ml Balance 720 ml 500 ml Labs: Laboratory Tests Test 01/31/22 07:33 01/31/22 19:10 Glucose (Fingerstick) 125 mg/dL (70-99) H 148 mg/dL (70-99) H Current Medications: Meds: Current Medications Medications (Trade) Dose Ordered Sig/Jhony Route PRN Reason Start Time Stop Time Status Last Admin Dose Admin Lorazepam (Ativan) 0.5 mg BID PO 01/31/22 09:00 01/31/22 20:54 Polymyxin/ Trimethoprim Sulfate (Polytrim) 1 drop QID OD 01/31/22 09:00 02/10/22 08:59 01/31/22 20:54 I have reviewed the current psychotropics carefully including drug interactions. Risk benefit ratio favors no change other than as noted in my dictated progress note. Diagnosis: Problems: (1) Schizophrenia, chronic with acute exacerbation (2) Impulse control disorder, unspecified (3) Anxiety disorder, unspecified (4) Bipolar disorder, current episode mixed, severe, with psychotic features (5) Mild cognitive impairment PHI GLASER MD February 01, 2022 06:36
[2022-02-01] MEDS: ASPIRIN ENTERIC COATED 81 MG TABLET.DR. PO SCH (08:19)
[2022-02-01] MEDS: metFORMIN 500 MG TABLET PO SCH ×2 (08:19→17:05)
[2022-02-01] MEDS: OLANZapine 10 MG TABLET PO SCH ×2 (08:19→20:56)
[2022-02-01] MEDS: MULTIVITAMIN with MINERAL TABLET. PO SCH (08:19)
[2022-02-01] MEDS: ACYCLOVIR 200 MG CAPSULE PO SCH ×2 (08:20→20:56)
[2022-02-01] MEDS: CHOLECALCIFEROL (VITAMIN D3) 1,000 UNIT TABLET PO SCH (08:20)
[2022-02-01] MEDS: LORazepam 0.5 MG TABLET PO SCH ×2 (08:20→20:54)
[2022-02-01] MEDS: LACTOBACILLUS RHAMNOSUS GG 1 CAPSULE. PO SCH (08:20)
[2022-02-01] MEDS: CYANOCOBALAMIN (VITAMIN B-12) 1,000 MCG TABLET. PO SCH (08:21)
[2022-02-01] MEDS: HALOPERIDOL 5 MG TABLET PO SCH ×2 (08:21→20:55)
[2022-02-01] MEDS: POLYMYXIN/TRIMETHOPRIM OPHTH SOLUTION 10ML BOTTLE. OD SCH ×4 (08:21→20:54)
[2022-02-01] MEDS: LURASIDONE 40 MG TABLET. PO SCH (08:21)
[2022-02-01] MEDS: POLYVINYL ALCOHOL/POVIDONE/PF OPHTH SOLUTION DROPERETTE. OU SCH ×2 (08:21→20:54)
[2022-02-01] MEDS: GLIMEPIRIDE 2 MG TABLET PO SCH (08:21)
[2022-02-01] MEDS: POLYETHYLENE GLYCOL 3350 17 GM PACKET. PO SCH (08:21)
[2022-02-01 16:27] VITALS: BP 155/72
[2022-02-01] MEDS: traZODone 50 MG TABLET. PO SCH (20:55)
[2022-02-01] MEDS: DIVALPROEX ER 250 MG TAB.ER.24H. PO SCH (20:55)
[2022-02-01] MEDS: NITROFURANTOIN MONOHYD/M-CRYST 100 MG CAPSULE. PO SCH (20:56)
[2022-02-01] MEDS: MELATONIN 3 MG TABLET PO SCH (20:56)
[2022-02-01] MEDS: INSULIN GLARGINE SYRINGE. SQ SCH (21:02)
--- NOTE | 2022-02-01 21:47 | PDOC ---
Exam Note: Zay Note: Please also refer to the separate dictated note~for this date of service dictated separately.~Patient seen individually. Discussed the patient with Nursing staff reviewed the chart.~Reviewed interim history and current functioning. Reviewed vital signs,~Labs/ Radiology~and current medications noted below. Continue current treatment with the changes noted in the dictated addendum note Assessment: Vital Signs/I&O: Vital Signs Date Time Temp Pulse Resp B/P (MAP) Pulse Ox O2 Delivery O2 Flow Rate FiO2 02/01/22 16:27 97.6 107 16 155/72 (99) 97 Room Air I & O 01/31/22 01/31/22 02/01/22 15:00 23:00 07:00 Intake Total 720 ml 500 ml Balance 720 ml 500 ml Labs: Laboratory Tests Test 02/01/22 07:32 02/01/22 10:07 02/01/22 19:48 Glucose (Fingerstick) 150 mg/dL (70-99) H 197 mg/dL (70-99) H POC SARS CoV-2 Antigen Negative (NEGATIVE) Current Medications: Meds: Laboratory Tests Test 02/01/22 07:32 02/01/22 10:07 02/01/22 19:48 Glucose (Fingerstick) 150 mg/dL 197 mg/dL POC SARS CoV-2 Antigen Negative Current Medications Medications (Trade) Dose Ordered Sig/Jhony Route PRN Reason Start Time Stop Time Status Last Admin Dose Admin Potassium Chloride (Klor-Con) 40 meq 1X ONCE PO 01/29/22 21:30 01/29/22 21:43 DC 01/29/22 21:32 Acetaminophen (Tylenol) 650 mg PRN Q6HRS PRN PO MILD PAIN / TEMP > 100.3'F 01/29/22 22:00 01/29/22 22:57 DC Multi-Ingredient Ointment (Analgesic [place]) 1 izzy PRN QID PRN TP MUSCLE PAIN 01/29/22 22:00 Al Hydroxide/Mg Hydroxide (Mylanta Plus Xs) 15 ml PRN AFTMEALHC PRN PO DYSPEPSIA 01/29/22 22:00 Magnesium Hydroxide (Milk Of Magnesia) 2,400 mg PRN QHS PRN PO 1ST CHOICE CONSTIPATION 01/29/22 22:00 Acetaminophen (Tylenol) 500 mg PRN Q4HRS PRN PO PAIN 01/29/22 22:15 Aspirin (Aspirin Enteric Coated) 81 mg DAILY PO 01/30/22 09:00 02/01/22 08:19 Bisacodyl (Dulcolax Supp) 10 mg PRN DAILY PRN RC 2ND CHOICE CONSTIPATION 01/29/22 22:15 Vitamin D (Vitamin D3) 2,000 unit DAILY PO 01/30/22 09:00 02/01/22 08:20 Glucose (Insta-Glucose) 15 gm PRN Q15MIN PRN PO low blood sugar 01/29/22 22:15 Divalproex Sodium (Depakote) 125 mg TID PO 01/29/22 23:00 01/30/22 16:59 DC 01/30/22 13:59 Glimepiride (Amaryl) 2 mg DAILY PO 01/30/22 09:00 02/01/22 08:21 Haloperidol (Haldol) 2.5 mg BID PO 01/29/22 23:00 02/01/22 20:55 Levothyroxine Sodium (Synthroid) 50 mcg DAILY06 PO 01/30/22 06:00 02/01/22 06:11 Lorazepam (Ativan) 1 mg TID PO 01/29/22 23:00 01/30/22 16:59 DC 01/30/22 13:58 Melatonin (Melatonin) 6 mg QHS PO 01/29/22 23:00 02/01/22 20:56 Metformin HCl (Glucophage) 1,000 mg BIDWMEALS PO 01/30/22 08:00 02/01/22 17:05 Olanzapine (ZyPREXA) 10 mg BID PO 01/29/22 23:00 02/01/22 20:56 Polyethylene Glycol (miraLAX) 17 gm DAILY PO 01/30/22 09:00 02/01/22 08:21 Saliva Substitute (Biotene Moisturizing Mouth) 1 spray PRN Q4HRS PRN MM DRY MOUTH 01/29/22 22:15 Senna/Docusate Sodium (Senna Plus) 1 tab BID PO 01/29/22 23:00 01/30/22 20:52 DC 01/29/22 23:42 Trazodone HCl (Desyrel) 50 mg PRN QHS PRN PO INSOMNIA 01/29/22 22:15 Trazodone HCl (Desyrel) 50 mg QHS PO 01/29/22 23:00 02/01/22 20:55 Acyclovir (Zovirax) 400 mg BID PO 01/29/22 23:00 02/01/22 20:56 Non-Formulary Medication (Biotin ) 5 mg DAILY PO 01/30/22 09:00 01/29/22 23:06 DC Artificial Tears (Refresh Classic) 1 drop BID OU 01/29/22 23:00 02/01/22 20:54 Cyanocobalamin (Vitamin B-12) 1,000 mcg DAILY PO 01/30/22 09:00 02/01/22 08:21 Glucagon (Glucagen Kit) 1 mg PRN DAILY PRN IM BS<60 and unresponsive or NPO 01/29/22 23:15 Insulin Glargine (Lantus Syringe) 30 unit QHS SQ 01/29/22 23:00 02/01/22 21:02 Lactobacillus Rhamnosus (Culturelle) 1 cap DAILY PO 01/30/22 09:00 02/01/22 08:20 Lurasidone HCl (Latuda) 80 mg DAILY PO 01/30/22 09:00 02/01/22 08:21 Multivitamins/ Calcium (Thera-M Plus) 1 tab DAILY PO 01/30/22 09:00 02/01/22 08:19 Nitrofurantoin Macrocrystals (Macrobid) 100 mg QHS PO 01/30/22 21:00 02/01/22 20:56 Lorazepam (Ativan) 0.5 mg BID PO 01/31/22 09:00 02/01/22 20:54 Lorazepam (Ativan) 1 mg PRN QHS PRN PO ANXIETY / AGITATION 01/30/22 17:00 Divalproex Sodium (Depakote Er) 750 mg QHS PO 01/30/22 21:00 02/01/22 20:55 Senna/Docusate Sodium (Senna Plus) 1 tab PRN BID PRN PO CONSTIPATION 01/30/22 21:00 Polymyxin/ Trimethoprim Sulfate (Polytrim) 1 drop QID OU 01/30/22 21:00 01/30/22 23:42 DC 01/30/22 21:00 Polymyxin/ Trimethoprim Sulfate (Polytrim) 1 drop QID OD 01/31/22 09:00 02/10/22 08:59 02/01/22 20:54 Potassium Chloride (Klor-Con) 20 meq STK-MED ONCE PO 01/29/22 21:30 02/01/22 09:35 DC I have reviewed the current psychotropics carefully including drug interactions. Risk benefit ratio favors no change other than as noted in my dictated progress note. Diagnosis: Problems: (1) Schizophrenia, chronic with acute exacerbation (2) Impulse control disorder, unspecified (3) Anxiety disorder, unspecified (4) Bipolar disorder, current episode mixed, severe, with psychotic features (5) Mild cognitive impairment PHI GLASER MD February 01, 2022 21:46
[2022-02-02] MEDS: LEVOTHYROXINE 50 MCG TABLET PO SCH (05:28)
[2022-02-02] MEDS: ACETAMINOPHEN 500 MG TABLET PO PRN ×2 (05:33→20:54)
[2022-02-02 05:58] VITALS: BP 112/68
[2022-02-02 06:49] LABS: BASO % 0 % (0-3); EOS % 0 % (0-3); HEMATOCRIT 35.9 % (36.0-47.0); HEMOGLOBIN 12.2 g/dL (12.0-15.5); LYMPH # 1.4 x10^3/uL (1.0-4.8); LYMPH % 25 % (24-48); MEAN CORPUSCULAR HEMOGLOBIN 30 pg (25-35); MEAN CORPUSCULAR HGB CONC 34 g/dL (31-37); MEAN CORPUSCULAR VOLUME 89 fL (79-100); MONO # 0.5 x10^3/uL (0.0-1.1); MONO % 10 % (0-9); NEUT # 3.6 x10^3uL (1.8-7.7); NEUT % 65 % (31-73); PLATELET COUNT 191 x10^3/uL (140-400); RED BLOOD COUNT 4.03 x10^6/uL (3.50-5.40); RED CELL DISTRIBUTION WIDTH 13.5 % (11.5-14.5); WHITE BLOOD COUNT 5.5 x10^3/uL (4.0-11.0)
[2022-02-02 07:01] LABS: ALBUMIN 3.3 g/dL (3.4-5.0); ALBUMIN/GLOBULIN RATIO 1.2 (1.0-1.7); CALCIUM 8.9 mg/dL (8.5-10.1); GFR 54.7; POTASSIUM 3.3 mmol/L (3.5-5.1); TOTAL BILIRUBIN 0.5 mg/dL (0.2-1.0); TOTAL PROTEIN 6.1 g/dL (6.4-8.2)
--- NOTE | 2022-02-02 08:02 | PDOC ---
Exam Note: Zay Note: This note is a late entry for 02/01/2022 covers elements not covered in my initial note. Subjective: The patient was reviewed at treatment team meeting individually in the morning on 02/01/2022 with Andria Baron, Callie Mcintyre, and Medina Figueroa (social work job titles), Liliana, activity therapy, and Guero CABRERA, discussed and reviewed the chart. The patient slept 3-1/2 hours previous night. Average sleep 5 hours. Appetite 50%. We reviewed the patients history, diagnoses. We will obtain past psychiatric records from the [facility] and other psychiatrist that she has been treated by. She is having some diarrhea, on metformin. She has been incontinent. She also has some tremors and was told this may be due to a lingering effect from Covid. Reportedly her history indicates she had two episodes of catatonia when changes were made in her psychotropics with the [facility]. I met with her individually in the evening. Review of Systems: Ambulation impaired in wheelchair though physical therapy indicates she can transfer herself. Hard of hearing. No CV, , pulmonary, eye system symptoms on review. Mental Status Exam: Patient is reasonably oriented to herself and situation. Speech has some latency. Abstraction fair. Computation impaired. Language function intact. Mood and affect somewhat anxious, labile. Laboratory Data: Reviewed. Impression: Bipolar 1 disorder mixed with psychotic features. Anxiety disorder unspecified. Impulse control disorder unspecified. Plan: Continue current psychotropics mentioned in my initial note. Reviewed drug interactions, risk-benefit ratio. Adjust Depakote to reach therapeutic level. Discussed discharge, aftercare plans. Assessment: Vital Signs/I&O: Vital Signs Date Time Temp Pulse Resp B/P (MAP) Pulse Ox O2 Delivery O2 Flow Rate FiO2 02/02/22 05:58 97.6 92 18 112/68 (83) 94 Room Air I & O 02/01/22 02/01/22 02/02/22 15:00 23:00 07:00 Intake Total 720 ml 480 ml Balance 720 ml 480 ml Labs: Laboratory Tests Test 02/01/22 10:07 02/01/22 19:48 02/02/22 06:15 02/02/22 07:41 POC SARS CoV-2 Antigen Negative (NEGATIVE) Glucose (Fingerstick) 197 mg/dL (70-99) H 139 mg/dL (70-99) H White Blood Count 5.5 x10^3/uL (4.0-11.0) Red Blood Count 4.03 x10^6/uL (3.50-5.40) Hemoglobin 12.2 g/dL (12.0-15.5) Hematocrit 35.9 % (36.0-47.0) L Mean Corpuscular Volume 89 fL (79-100) Mean Corpuscular Hemoglobin 30 pg (25-35) Mean Corpuscular Hemoglobin Concent 34 g/dL (31-37) Red Cell Distribution Width 13.5 % (11.5-14.5) Platelet Count 191 x10^3/uL (140-400) Neutrophils (%) (Auto) 65 % (31-73) Lymphocytes (%) (Auto) 25 % (24-48) Monocytes (%) (Auto) 10 % (0-9) H Eosinophils (%) (Auto) 0 % (0-3) Basophils (%) (Auto) 0 % (0-3) Neutrophils # (Auto) 3.6 x10^3uL (1.8-7.7) Lymphocytes # (Auto) 1.4 x10^3/uL (1.0-4.8) Monocytes # (Auto) 0.5 x10^3/uL (0.0-1.1) Eosinophils # (Auto) 0.0 x10^3/uL (0.0-0.7) Basophils # (Auto) 0.0 x10^3/uL (0.0-0.2) Sodium Level 144 mmol/L (136-145) Potassium Level 3.3 mmol/L (3.5-5.1) L Chloride Level 107 mmol/L (98-107) Carbon Dioxide Level 27 mmol/L (21-32) Anion Gap 10 (6-14) Blood Urea Nitrogen 13 mg/dL (7-20) Creatinine 1.0 mg/dL (0.6-1.0) Estimated GFR (Cockcroft-Gault) 54.7 BUN/Creatinine Ratio 13 (6-20) Glucose Level 116 mg/dL (70-99) H Calcium Level 8.9 mg/dL (8.5-10.1) Total Bilirubin 0.5 mg/dL (0.2-1.0) Aspartate Amino Transferase (AST) 161 U/L (15-37) H Alanine Aminotransferase (ALT) 71 U/L (14-59) H Alkaline Phosphatase 87 U/L (46-116) Total Protein 6.1 g/dL (6.4-8.2) L Albumin 3.3 g/dL (3.4-5.0) L Albumin/Globulin Ratio 1.2 (1.0-1.7) Current Medications: I have reviewed the current psychotropics carefully including drug interactions. Risk benefit ratio favors no change other than as noted in my dictated progress note. Diagnosis: Problems: (1) Schizophrenia, catatonic, chronic with acute exacerbation (2) Impulse control disorder, unspecified (3) Anxiety disorder, unspecified (4) Bipolar disorder, current episode mixed, severe, with psychotic features (5) Mild cognitive impairment PHI GLASER MD February 02, 2022 08:02
[2022-02-02] MEDS: CHOLECALCIFEROL (VITAMIN D3) 1,000 UNIT TABLET PO SCH (08:12)
[2022-02-02] MEDS: CYANOCOBALAMIN (VITAMIN B-12) 1,000 MCG TABLET. PO SCH (08:12)
[2022-02-02] MEDS: MULTIVITAMIN with MINERAL TABLET. PO SCH (08:12)
[2022-02-02] MEDS: GLIMEPIRIDE 2 MG TABLET PO SCH (08:12)
[2022-02-02] MEDS: LORazepam 0.5 MG TABLET PO SCH ×2 (08:12→20:51)
[2022-02-02] MEDS: HALOPERIDOL 5 MG TABLET PO SCH (08:13)
[2022-02-02] MEDS: OLANZapine 10 MG TABLET PO SCH ×2 (08:13→20:51)
[2022-02-02] MEDS: ASPIRIN ENTERIC COATED 81 MG TABLET.DR. PO SCH (08:13)
[2022-02-02] MEDS: ACYCLOVIR 200 MG CAPSULE PO SCH ×2 (08:13→20:59)
[2022-02-02] MEDS: POLYETHYLENE GLYCOL 3350 17 GM PACKET. PO SCH (08:14)
[2022-02-02] MEDS: POLYMYXIN/TRIMETHOPRIM OPHTH SOLUTION 10ML BOTTLE. OD SCH ×5 (08:14→20:51)
[2022-02-02] MEDS: metFORMIN 500 MG TABLET PO SCH ×3 (08:14→17:43)
[2022-02-02] MEDS: LACTOBACILLUS RHAMNOSUS GG 1 CAPSULE. PO SCH (08:14)
[2022-02-02] MEDS: LURASIDONE 40 MG TABLET. PO SCH (08:14)
[2022-02-02] MEDS: POLYVINYL ALCOHOL/POVIDONE/PF OPHTH SOLUTION DROPERETTE. OU SCH ×2 (08:14→20:51)
[2022-02-02 08:21] LABS: VAL ACID 53 mcg/mL (50-100)
[2022-02-02 16:00] VITALS: BP 128/60
[2022-02-02] MEDS: DIVALPROEX ER 250 MG TAB.ER.24H. PO SCH (20:51)
[2022-02-02] MEDS: MELATONIN 3 MG TABLET PO SCH (20:51)
[2022-02-02] MEDS: NITROFURANTOIN MONOHYD/M-CRYST 100 MG CAPSULE. PO SCH (20:51)
[2022-02-02] MEDS: traZODone 50 MG TABLET. PO SCH (20:51)
[2022-02-02] MEDS: INSULIN GLARGINE SYRINGE. SQ SCH (21:01)
--- NOTE | 2022-02-02 21:41 | PDOC ---
Exam Note: Zay Note: Please also refer to the separate dictated note~for this date of service dictated separately.~Patient seen individually. Discussed the patient with Nursing staff reviewed the chart.~Reviewed interim history and current functioning. Reviewed vital signs,~Labs/ Radiology~and current medications noted below. Continue current treatment with the changes noted in the dictated addendum note Assessment: Vital Signs/I&O: Vital Signs Date Time Temp Pulse Resp B/P (MAP) Pulse Ox O2 Delivery O2 Flow Rate FiO2 02/02/22 16:00 98.4 94 20 128/60 (82) 94 Room Air I & O 02/01/22 02/01/22 02/02/22 15:00 23:00 07:00 Intake Total 720 ml 480 ml Balance 720 ml 480 ml Labs: Laboratory Tests Test 02/02/22 06:15 02/02/22 07:41 02/02/22 19:14 White Blood Count 5.5 x10^3/uL (4.0-11.0) Red Blood Count 4.03 x10^6/uL (3.50-5.40) Hemoglobin 12.2 g/dL (12.0-15.5) Hematocrit 35.9 % (36.0-47.0) L Mean Corpuscular Volume 89 fL (79-100) Mean Corpuscular Hemoglobin 30 pg (25-35) Mean Corpuscular Hemoglobin Concent 34 g/dL (31-37) Red Cell Distribution Width 13.5 % (11.5-14.5) Platelet Count 191 x10^3/uL (140-400) Neutrophils (%) (Auto) 65 % (31-73) Lymphocytes (%) (Auto) 25 % (24-48) Monocytes (%) (Auto) 10 % (0-9) H Eosinophils (%) (Auto) 0 % (0-3) Basophils (%) (Auto) 0 % (0-3) Neutrophils # (Auto) 3.6 x10^3uL (1.8-7.7) Lymphocytes # (Auto) 1.4 x10^3/uL (1.0-4.8) Monocytes # (Auto) 0.5 x10^3/uL (0.0-1.1) Eosinophils # (Auto) 0.0 x10^3/uL (0.0-0.7) Basophils # (Auto) 0.0 x10^3/uL (0.0-0.2) Sodium Level 144 mmol/L (136-145) Potassium Level 3.3 mmol/L (3.5-5.1) L Chloride Level 107 mmol/L (98-107) Carbon Dioxide Level 27 mmol/L (21-32) Anion Gap 10 (6-14) Blood Urea Nitrogen 13 mg/dL (7-20) Creatinine 1.0 mg/dL (0.6-1.0) Estimated GFR (Cockcroft-Gault) 54.7 BUN/Creatinine Ratio 13 (6-20) Glucose Level 116 mg/dL (70-99) H Calcium Level 8.9 mg/dL (8.5-10.1) Total Bilirubin 0.5 mg/dL (0.2-1.0) Aspartate Amino Transferase (AST) 161 U/L (15-37) H Alanine Aminotransferase (ALT) 71 U/L (14-59) H Alkaline Phosphatase 87 U/L (46-116) Total Protein 6.1 g/dL (6.4-8.2) L Albumin 3.3 g/dL (3.4-5.0) L Albumin/Globulin Ratio 1.2 (1.0-1.7) Valproic Acid Level 53 mcg/mL (50-100) Valproic Acid Last Dose Date 01/31/2022 Valproic Acid Last Dose Time 2100 Glucose (Fingerstick) 139 mg/dL (70-99) H 241 mg/dL (70-99) H Current Medications: Meds: Laboratory Tests Test 02/02/22 06:15 02/02/22 07:41 02/02/22 19:14 White Blood Count 5.5 x10^3/uL Red Blood Count 4.03 x10^6/uL Hemoglobin 12.2 g/dL Hematocrit 35.9 % Mean Corpuscular Volume 89 fL Mean Corpuscular Hemoglobin 30 pg Mean Corpuscular Hemoglobin Concent 34 g/dL Red Cell Distribution Width 13.5 % Platelet Count 191 x10^3/uL Neutrophils (%) (Auto) 65 % Lymphocytes (%) (Auto) 25 % Monocytes (%) (Auto) 10 % Eosinophils (%) (Auto) 0 % Basophils (%) (Auto) 0 % Neutrophils # (Auto) 3.6 x10^3uL Lymphocytes # (Auto) 1.4 x10^3/uL Monocytes # (Auto) 0.5 x10^3/uL Eosinophils # (Auto) 0.0 x10^3/uL Basophils # (Auto) 0.0 x10^3/uL Sodium Level 144 mmol/L Potassium Level 3.3 mmol/L Chloride Level 107 mmol/L Carbon Dioxide Level 27 mmol/L Anion Gap 10 Blood Urea Nitrogen 13 mg/dL Creatinine 1.0 mg/dL Estimated GFR (Cockcroft-Gault) 54.7 BUN/Creatinine Ratio 13 Glucose Level 116 mg/dL Calcium Level 8.9 mg/dL Total Bilirubin 0.5 mg/dL Aspartate Amino Transf (AST/SGOT) 161 U/L Alanine Aminotransferase (ALT/SGPT) 71 U/L Alkaline Phosphatase 87 U/L Total Protein 6.1 g/dL Albumin 3.3 g/dL Albumin/Globulin Ratio 1.2 Valproic Acid (Depakene) Level 53 mcg/mL Valproic Acid Last Dose Date 01/31/2022 Valproic Acid Last Dose Time 2100 Glucose (Fingerstick) 139 mg/dL 241 mg/dL Current Medications Medications (Trade) Dose Ordered Sig/Jhony Route PRN Reason Start Time Stop Time Status Last Admin Dose Admin Potassium Chloride (Klor-Con) 40 meq 1X ONCE PO 01/29/22 21:30 01/29/22 21:43 DC 01/29/22 21:32 Acetaminophen (Tylenol) 650 mg PRN Q6HRS PRN PO MILD PAIN / TEMP > 100.3'F 01/29/22 22:00 01/29/22 22:57 DC Multi-Ingredient Ointment (Analgesic [place]) 1 izzy PRN QID PRN TP MUSCLE PAIN 01/29/22 22:00 Al Hydroxide/Mg Hydroxide (Mylanta Plus Xs) 15 ml PRN AFTMEALHC PRN PO DYSPEPSIA 01/29/22 22:00 Magnesium Hydroxide (Milk Of Magnesia) 2,400 mg PRN QHS PRN PO 1ST CHOICE CONSTIPATION 01/29/22 22:00 Acetaminophen (Tylenol) 500 mg PRN Q4HRS PRN PO PAIN 01/29/22 22:15 02/02/22 20:54 Aspirin (Aspirin Enteric Coated) 81 mg DAILY PO 01/30/22 09:00 02/02/22 08:13 Bisacodyl (Dulcolax Supp) 10 mg PRN DAILY PRN RC 2ND CHOICE CONSTIPATION 01/29/22 22:15 Vitamin D (Vitamin D3) 2,000 unit DAILY PO 01/30/22 09:00 02/02/22 08:12 Glucose (Insta-Glucose) 15 gm PRN Q15MIN PRN PO low blood sugar 01/29/22 22:15 Divalproex Sodium (Depakote) 125 mg TID PO 01/29/22 23:00 01/30/22 16:59 DC 01/30/22 13:59 Glimepiride (Amaryl) 2 mg DAILY PO 01/30/22 09:00 02/02/22 08:12 Haloperidol (Haldol) 2.5 mg BID PO 01/29/22 23:00 02/02/22 17:12 DC 02/02/22 08:13 Levothyroxine Sodium (Synthroid) 50 mcg DAILY06 PO 01/30/22 06:00 02/02/22 05:28 Lorazepam (Ativan) 1 mg TID PO 01/29/22 23:00 01/30/22 16:59 DC 01/30/22 13:58 Melatonin (Melatonin) 6 mg QHS PO 01/29/22 23:00 02/02/22 20:51 Metformin HCl (Glucophage) 1,000 mg BIDWMEALS PO 01/30/22 08:00 02/02/22 08:14 Olanzapine (ZyPREXA) 10 mg BID PO 01/29/22 23:00 02/02/22 20:51 Polyethylene Glycol (miraLAX) 17 gm DAILY PO 01/30/22 09:00 02/02/22 08:14 Saliva Substitute (Biotene Moisturizing Mouth) 1 spray PRN Q4HRS PRN MM DRY MOUTH 01/29/22 22:15 Senna/Docusate Sodium (Senna Plus) 1 tab BID PO 01/29/22 23:00 01/30/22 20:52 DC 01/29/22 23:42 Trazodone HCl (Desyrel) 50 mg PRN QHS PRN PO INSOMNIA 01/29/22 22:15 Trazodone HCl (Desyrel) 50 mg QHS PO 01/29/22 23:00 02/02/22 20:51 Acyclovir (Zovirax) 400 mg BID PO 01/29/22 23:00 02/02/22 20:59 Non-Formulary Medication (Biotin ) 5 mg DAILY PO 01/30/22 09:00 01/29/22 23:06 DC Artificial Tears (Refresh Classic) 1 drop BID OU 01/29/22 23:00 02/02/22 20:51 Cyanocobalamin (Vitamin B-12) 1,000 mcg DAILY PO 01/30/22 09:00 02/02/22 08:12 Glucagon (Glucagen Kit) 1 mg PRN DAILY PRN IM BS<60 and unresponsive or NPO 01/29/22 23:15 Insulin Glargine (Lantus Syringe) 30 unit QHS SQ 01/29/22 23:00 02/02/22 21:01 Lactobacillus Rhamnosus (Culturelle) 1 cap DAILY PO 01/30/22 09:00 02/02/22 08:14 Lurasidone HCl (Latuda) 80 mg DAILY PO 01/30/22 09:00 02/02/22 08:14 Multivitamins/ Calcium (Thera-M Plus) 1 tab DAILY PO 01/30/22 09:00 02/02/22 08:12 Nitrofurantoin Macrocrystals (Macrobid) 100 mg QHS PO 01/30/22 21:00 02/02/22 20:51 Lorazepam (Ativan) 0.5 mg BID PO 01/31/22 09:00 02/02/22 20:51 Lorazepam (Ativan) 1 mg PRN QHS PRN PO ANXIETY / AGITATION 01/30/22 17:00 Divalproex Sodium (Depakote Er) 750 mg QHS PO 01/30/22 21:00 02/02/22 20:51 Senna/Docusate Sodium (Senna Plus) 1 tab PRN BID PRN PO CONSTIPATION 01/30/22 21:00 Polymyxin/ Trimethoprim Sulfate (Polytrim) 1 drop QID OU 01/30/22 21:00 01/30/22 23:42 DC 01/30/22 21:00 Polymyxin/ Trimethoprim Sulfate (Polytrim) 1 drop QID OD 01/31/22 09:00 02/10/22 08:59 02/02/22 20:51 Potassium Chloride (Klor-Con) 20 meq STK-MED ONCE PO 01/29/22 21:30 02/01/22 09:35 DC Haloperidol (Haldol) 2.5 mg DAILY PO 02/03/22 09:00 I have reviewed the current psychotropics carefully including drug interactions. Risk benefit ratio favors no change other than as noted in my dictated progress note. Diagnosis: Problems: (1) Impulse control disorder, unspecified (2) Anxiety disorder, unspecified (3) Bipolar disorder, current episode mixed, severe, with psychotic features (4) Mild cognitive impairment (5) Schizophrenia, catatonic, chronic with acute exacerbation PHI GLASER MD February 02, 2022 21:40
[2022-02-03] MEDS: LEVOTHYROXINE 50 MCG TABLET PO SCH (05:13)
[2022-02-03 06:15] VITALS: BP 153/74
[2022-02-03] MEDS: ASPIRIN ENTERIC COATED 81 MG TABLET.DR. PO SCH (07:42)
[2022-02-03] MEDS: metFORMIN 500 MG TABLET PO SCH ×2 (07:42→17:00)
[2022-02-03] MEDS: MULTIVITAMIN with MINERAL TABLET. PO SCH (07:42)
[2022-02-03] MEDS: GLIMEPIRIDE 2 MG TABLET PO SCH (07:42)
[2022-02-03] MEDS: CYANOCOBALAMIN (VITAMIN B-12) 1,000 MCG TABLET. PO SCH (07:43)
[2022-02-03] MEDS: LACTOBACILLUS RHAMNOSUS GG 1 CAPSULE. PO SCH (07:43)
[2022-02-03] MEDS: CHOLECALCIFEROL (VITAMIN D3) 1,000 UNIT TABLET PO SCH (07:43)
[2022-02-03] MEDS: OLANZapine 10 MG TABLET PO SCH ×2 (07:43→20:54)
[2022-02-03] MEDS: POLYMYXIN/TRIMETHOPRIM OPHTH SOLUTION 10ML BOTTLE. OD SCH ×4 (07:44→20:56)
[2022-02-03] MEDS: ACYCLOVIR 200 MG CAPSULE PO SCH ×2 (07:44→20:57)
[2022-02-03] MEDS: LORazepam 0.5 MG TABLET PO SCH ×2 (07:44→20:57)
[2022-02-03] MEDS: HALOPERIDOL 5 MG TABLET PO SCH (07:45)
[2022-02-03] MEDS: POLYETHYLENE GLYCOL 3350 17 GM PACKET. PO SCH (08:15)
[2022-02-03] MEDS: POLYVINYL ALCOHOL/POVIDONE/PF OPHTH SOLUTION DROPERETTE. OU SCH ×2 (08:15→20:56)
[2022-02-03] MEDS: LURASIDONE 40 MG TABLET. PO SCH (08:15)
[2022-02-03] MEDS: ACETAMINOPHEN 500 MG TABLET PO PRN (08:30)
[2022-02-03 15:00] VITALS: BP 140/81
[2022-02-03] MEDS: NITROFURANTOIN MONOHYD/M-CRYST 100 MG CAPSULE. PO SCH (20:54)
[2022-02-03] MEDS: DIVALPROEX ER 250 MG TAB.ER.24H. PO SCH (20:54)
[2022-02-03] MEDS: MELATONIN 3 MG TABLET PO SCH (20:54)
[2022-02-03] MEDS: traZODone 50 MG TABLET. PO SCH (20:54)
[2022-02-03] MEDS: INSULIN GLARGINE SYRINGE. SQ SCH (21:39)
--- NOTE | 2022-02-03 22:06 | PDOC ---
Exam Note: Zay Note: Please also refer to the separate dictated note~for this date of service dictated separately.~Patient seen individually. Discussed the patient with Nursing staff reviewed the chart.~Reviewed interim history and current functioning. Reviewed vital signs,~Labs/ Radiology~and current medications noted below. Continue current treatment with the changes noted in the dictated addendum note Assessment: Vital Signs/I&O: Vital Signs Date Time Temp Pulse Resp B/P (MAP) Pulse Ox O2 Delivery O2 Flow Rate FiO2 02/03/22 15:00 98.2 76 18 140/81 (100) 94 Room Air I & O 02/02/22 02/02/22 02/03/22 15:00 23:00 07:00 Intake Total 490 ml 360 ml Balance 490 ml 360 ml Labs: Laboratory Tests Test 02/03/22 07:53 02/03/22 19:23 Glucose (Fingerstick) 158 mg/dL (70-99) H 137 mg/dL (70-99) H Current Medications: Meds: Laboratory Tests Test 02/03/22 07:53 02/03/22 19:23 Glucose (Fingerstick) 158 mg/dL 137 mg/dL Current Medications Medications (Trade) Dose Ordered Sig/Jhony Route PRN Reason Start Time Stop Time Status Last Admin Dose Admin Potassium Chloride (Klor-Con) 40 meq 1X ONCE PO 01/29/22 21:30 01/29/22 21:43 DC 01/29/22 21:32 Acetaminophen (Tylenol) 650 mg PRN Q6HRS PRN PO MILD PAIN / TEMP > 100.3'F 01/29/22 22:00 01/29/22 22:57 DC Multi-Ingredient Ointment (Analgesic [place]) 1 izzy PRN QID PRN TP MUSCLE PAIN 01/29/22 22:00 Al Hydroxide/Mg Hydroxide (Mylanta Plus Xs) 15 ml PRN AFTMEALHC PRN PO DYSPEPSIA 01/29/22 22:00 Magnesium Hydroxide (Milk Of Magnesia) 2,400 mg PRN QHS PRN PO 1ST CHOICE CONSTIPATION 01/29/22 22:00 Acetaminophen (Tylenol) 500 mg PRN Q4HRS PRN PO PAIN 01/29/22 22:15 02/03/22 08:30 Aspirin (Aspirin Enteric Coated) 81 mg DAILY PO 01/30/22 09:00 02/03/22 07:42 Bisacodyl (Dulcolax Supp) 10 mg PRN DAILY PRN RC 2ND CHOICE CONSTIPATION 01/29/22 22:15 Vitamin D (Vitamin D3) 2,000 unit DAILY PO 01/30/22 09:00 02/03/22 07:43 Glucose (Insta-Glucose) 15 gm PRN Q15MIN PRN PO low blood sugar 01/29/22 22:15 Divalproex Sodium (Depakote) 125 mg TID PO 01/29/22 23:00 01/30/22 16:59 DC 01/30/22 13:59 Glimepiride (Amaryl) 2 mg DAILY PO 01/30/22 09:00 02/03/22 07:42 Haloperidol (Haldol) 2.5 mg BID PO 01/29/22 23:00 02/02/22 17:12 DC 02/02/22 08:13 Levothyroxine Sodium (Synthroid) 50 mcg DAILY06 PO 01/30/22 06:00 02/03/22 05:13 Lorazepam (Ativan) 1 mg TID PO 01/29/22 23:00 01/30/22 16:59 DC 01/30/22 13:58 Melatonin (Melatonin) 6 mg QHS PO 01/29/22 23:00 02/03/22 20:54 Metformin HCl (Glucophage) 1,000 mg BIDWMEALS PO 01/30/22 08:00 02/03/22 07:42 Olanzapine (ZyPREXA) 10 mg BID PO 01/29/22 23:00 02/03/22 20:54 Polyethylene Glycol (miraLAX) 17 gm DAILY PO 01/30/22 09:00 02/02/22 08:14 Saliva Substitute (Biotene Moisturizing Mouth) 1 spray PRN Q4HRS PRN MM DRY MOUTH 01/29/22 22:15 Senna/Docusate Sodium (Senna Plus) 1 tab BID PO 01/29/22 23:00 01/30/22 20:52 DC 01/29/22 23:42 Trazodone HCl (Desyrel) 50 mg PRN QHS PRN PO INSOMNIA 01/29/22 22:15 Trazodone HCl (Desyrel) 50 mg QHS PO 01/29/22 23:00 02/03/22 20:54 Acyclovir (Zovirax) 400 mg BID PO 01/29/22 23:00 02/03/22 20:57 Non-Formulary Medication (Biotin ) 5 mg DAILY PO 01/30/22 09:00 01/29/22 23:06 DC Artificial Tears (Refresh Classic) 1 drop BID OU 01/29/22 23:00 02/03/22 20:56 Cyanocobalamin (Vitamin B-12) 1,000 mcg DAILY PO 01/30/22 09:00 02/03/22 07:43 Glucagon (Glucagen Kit) 1 mg PRN DAILY PRN IM BS<60 and unresponsive or NPO 01/29/22 23:15 Insulin Glargine (Lantus Syringe) 30 unit QHS SQ 01/29/22 23:00 02/03/22 21:39 Lactobacillus Rhamnosus (Culturelle) 1 cap DAILY PO 01/30/22 09:00 02/03/22 07:43 Lurasidone HCl (Latuda) 80 mg DAILY PO 01/30/22 09:00 02/03/22 08:15 Multivitamins/ Calcium (Thera-M Plus) 1 tab DAILY PO 01/30/22 09:00 02/03/22 07:42 Nitrofurantoin Macrocrystals (Macrobid) 100 mg QHS PO 01/30/22 21:00 02/03/22 20:54 Lorazepam (Ativan) 0.5 mg BID PO 01/31/22 09:00 02/03/22 20:57 Lorazepam (Ativan) 1 mg PRN QHS PRN PO ANXIETY / AGITATION 01/30/22 17:00 Divalproex Sodium (Depakote Er) 750 mg QHS PO 01/30/22 21:00 02/03/22 20:54 Senna/Docusate Sodium (Senna Plus) 1 tab PRN BID PRN PO CONSTIPATION 01/30/22 21:00 Polymyxin/ Trimethoprim Sulfate (Polytrim) 1 drop QID OU 01/30/22 21:00 01/30/22 23:42 DC 01/30/22 21:00 Polymyxin/ Trimethoprim Sulfate (Polytrim) 1 drop QID OD 01/31/22 09:00 02/10/22 08:59 02/03/22 20:56 Potassium Chloride (Klor-Con) 20 meq STK-MED ONCE PO 01/29/22 21:30 02/01/22 09:35 DC Haloperidol (Haldol) 2.5 mg DAILY PO 02/03/22 09:00 02/03/22 07:45 Current Medications Medications (Trade) Dose Ordered Sig/Jhony Route PRN Reason Start Time Stop Time Status Last Admin Dose Admin Haloperidol (Haldol) 2.5 mg DAILY PO 02/03/22 09:00 02/03/22 07:45 I have reviewed the current psychotropics carefully including drug interactions. Risk benefit ratio favors no change other than as noted in my dictated progress note. Diagnosis: Problems: (1) Impulse control disorder, unspecified (2) Anxiety disorder, unspecified (3) Bipolar disorder, current episode mixed, severe, with psychotic features (4) Mild cognitive impairment (5) Schizophrenia, catatonic, chronic with acute exacerbation PHI GLASER MD February 03, 2022 22:06
--- NOTE | 2022-02-03 22:06 | PDOC ---
Exam Note: Zay Note: This note is a late entry for 02/02/2022 covers elements not covered in my initial note. Subjective: The patient was seen individually on 02/02/2022, discussed and reviewed the chart with Guero CABRERA. The patient slept 7 hours previous night. We have received about 250 pages of medical records from the [facility] which I have reviewed. She has a diagnosis of bipolar disorder, apparently was stabilized on lithium but not very clear why this was stopped other than her chronic kidney disease which probably is related to her type 2 diabetes. She has had some extrapyramidal side effects. We will reduce Haldol from 2.5 mg b.i.d., down to 2.5 mg a day. At times she is helpless, attention seeking, resistive with ADLs. Valproic acid level is therapeutic at 53. We will repeat in 2 days. I met with her in her room. Review of Systems: Ambulation impaired in wheelchair. Hard of hearing. No CV, , pulmonary, eye system symptoms on review. Mental Status Exam: Patient is reasonably oriented to herself and situation. Speech is coherent, has some latency. Abstraction fair. Computation impaired. Language function intact. Attention span short. Mood and affect somewhat anxious, labile. Laboratory Data: Reviewed. Impression: Bipolar 1 disorder mixed with psychotic features. Anxiety disorder unspecified. Impulse control disorder unspecified. Plan: Continue current psychotropics mentioned in my initial note. Reviewed drug interactions, risk-benefit ratio. Reduce Haldol as noted. Consider Wellbutrin as an antidepressant which may be the safest option given her bipolar diagnosis. We will consider reducing Ativan since it does seemed to blunt her cognitively. We will make further adjustments as clinically indicated. Assessment: Vital Signs/I&O: Vital Signs Date Time Temp Pulse Resp B/P (MAP) Pulse Ox O2 Delivery O2 Flow Rate FiO2 02/03/22 15:00 98.2 76 18 140/81 (100) 94 Room Air I & O 02/02/22 02/02/22 02/03/22 15:00 23:00 07:00 Intake Total 490 ml 360 ml Balance 490 ml 360 ml Labs: Laboratory Tests Test 02/03/22 07:53 02/03/22 19:23 Glucose (Fingerstick) 158 mg/dL (70-99) H 137 mg/dL (70-99) H Current Medications: Meds: Current Medications Medications (Trade) Dose Ordered Sig/Jhony Route PRN Reason Start Time Stop Time Status Last Admin Dose Admin Haloperidol (Haldol) 2.5 mg DAILY PO 02/03/22 09:00 02/03/22 07:45 I have reviewed the current psychotropics carefully including drug interactions. Risk benefit ratio favors no change other than as noted in my dictated progress note. Diagnosis: Problems: (1) Impulse control disorder, unspecified (2) Anxiety disorder, unspecified (3) Bipolar disorder, current episode mixed, severe, with psychotic features (4) Mild cognitive impairment (5) Schizophrenia, catatonic, chronic with acute exacerbation PHI GLASER MD February 03, 2022 22:06
[2022-02-04] MEDS: LEVOTHYROXINE 50 MCG TABLET PO SCH (05:42)
--- NOTE | 2022-02-04 06:03 | EKG ---
[address] [address] Test Date: 2022-01-30 Test Time: 15:57:40 Pat Name: FRANCIE PORTILLO Department: Room: [address] [place] [address] Gender: [employer] Program Chair: DOM : 1950 Requested By: PHI GLASER Order Number: [id number] Reading MD: Jax Lam MD Measurements Intervals [place] Rate: 85 P: 39 [place]: 154 QRS: 8 QRSD: 90 T: 42 QT: 372 QTc: 443 Interpretive Statements SINUS RHYTHM Electronically Signed On 02-05-2022 9:20:50 CDT by Jax Lam MD
[2022-02-04 06:08] VITALS: BP 119/72
[2022-02-04] MEDS: LACTOBACILLUS RHAMNOSUS GG 1 CAPSULE. PO SCH (08:25)
[2022-02-04] MEDS: OLANZapine 10 MG TABLET PO SCH ×2 (08:25→20:32)
[2022-02-04] MEDS: GLIMEPIRIDE 2 MG TABLET PO SCH (08:25)
[2022-02-04] MEDS: MULTIVITAMIN with MINERAL TABLET. PO SCH (08:25)
[2022-02-04] MEDS: metFORMIN 500 MG TABLET PO SCH ×2 (08:26→16:01)
[2022-02-04] MEDS: CHOLECALCIFEROL (VITAMIN D3) 1,000 UNIT TABLET PO SCH (08:26)
[2022-02-04] MEDS: ASPIRIN ENTERIC COATED 81 MG TABLET.DR. PO SCH (08:26)
[2022-02-04] MEDS: CYANOCOBALAMIN (VITAMIN B-12) 1,000 MCG TABLET. PO SCH (08:26)
[2022-02-04] MEDS: POLYVINYL ALCOHOL/POVIDONE/PF OPHTH SOLUTION DROPERETTE. OU SCH ×2 (08:26→20:32)
[2022-02-04] MEDS: LORazepam 0.5 MG TABLET PO SCH ×2 (08:27→20:34)
[2022-02-04] MEDS: LURASIDONE 40 MG TABLET. PO SCH (08:27)
[2022-02-04] MEDS: ACYCLOVIR 200 MG CAPSULE PO SCH ×2 (08:27→20:32)
[2022-02-04] MEDS: HALOPERIDOL 5 MG TABLET PO SCH (08:27)
[2022-02-04] MEDS: POLYMYXIN/TRIMETHOPRIM OPHTH SOLUTION 10ML BOTTLE. OD SCH ×4 (09:00→20:34)
[2022-02-04] MEDS: POLYETHYLENE GLYCOL 3350 17 GM PACKET. PO SCH (09:00)
[2022-02-04 16:00] VITALS: BP 128/79
[2022-02-04] MEDS: MELATONIN 3 MG TABLET PO SCH (20:32)
[2022-02-04] MEDS: NITROFURANTOIN MONOHYD/M-CRYST 100 MG CAPSULE. PO SCH (20:32)
[2022-02-04] MEDS: traZODone 50 MG TABLET. PO SCH (20:32)
[2022-02-04] MEDS: DIVALPROEX ER 250 MG TAB.ER.24H. PO SCH (20:32)
[2022-02-04] MEDS: INSULIN GLARGINE SYRINGE. SQ SCH (21:26)
--- NOTE | 2022-02-04 21:51 | PDOC ---
Exam Note: Zay Note: Please also refer to the separate dictated note~for this date of service dictated separately.~Patient seen individually. Discussed the patient with Nursing staff reviewed the chart.~Reviewed interim history and current functioning. Reviewed vital signs,~Labs/ Radiology~and current medications noted below. Continue current treatment with the changes noted in the dictated addendum note Assessment: Vital Signs/I&O: Vital Signs Date Time Temp Pulse Resp B/P (MAP) Pulse Ox O2 Delivery O2 Flow Rate FiO2 02/04/22 16:00 97.9 101 20 128/79 (95) 97 Room Air I & O 02/03/22 02/03/22 02/04/22 14:59 22:59 06:59 Intake Total 360 ml 120 ml Balance 360 ml 120 ml Labs: Laboratory Tests Test 02/04/22 08:11 02/04/22 19:17 Glucose (Fingerstick) 119 mg/dL (70-99) H 189 mg/dL (70-99) H Current Medications: Meds: Laboratory Tests Test 02/04/22 08:11 02/04/22 19:17 Glucose (Fingerstick) 119 mg/dL 189 mg/dL Current Medications Medications (Trade) Dose Ordered Sig/Jhony Route PRN Reason Start Time Stop Time Status Last Admin Dose Admin Potassium Chloride (Klor-Con) 40 meq 1X ONCE PO 01/29/22 21:30 01/29/22 21:43 DC 01/29/22 21:32 Acetaminophen (Tylenol) 650 mg PRN Q6HRS PRN PO MILD PAIN / TEMP > 100.3'F 01/29/22 22:00 01/29/22 22:57 DC Multi-Ingredient Ointment (Analgesic [place]) 1 izzy PRN QID PRN TP MUSCLE PAIN 01/29/22 22:00 Al Hydroxide/Mg Hydroxide (Mylanta Plus Xs) 15 ml PRN AFTMEALHC PRN PO DYSPEPSIA 01/29/22 22:00 Magnesium Hydroxide (Milk Of Magnesia) 2,400 mg PRN QHS PRN PO 1ST CHOICE CONSTIPATION 01/29/22 22:00 Acetaminophen (Tylenol) 500 mg PRN Q4HRS PRN PO PAIN 01/29/22 22:15 02/03/22 08:30 Aspirin (Aspirin Enteric Coated) 81 mg DAILY PO 01/30/22 09:00 02/04/22 08:26 Bisacodyl (Dulcolax Supp) 10 mg PRN DAILY PRN RC 2ND CHOICE CONSTIPATION 01/29/22 22:15 Vitamin D (Vitamin D3) 2,000 unit DAILY PO 01/30/22 09:00 02/04/22 08:26 Glucose (Insta-Glucose) 15 gm PRN Q15MIN PRN PO low blood sugar 01/29/22 22:15 Divalproex Sodium (Depakote) 125 mg TID PO 01/29/22 23:00 01/30/22 16:59 DC 01/30/22 13:59 Glimepiride (Amaryl) 2 mg DAILY PO 01/30/22 09:00 02/04/22 08:25 Haloperidol (Haldol) 2.5 mg BID PO 01/29/22 23:00 02/02/22 17:12 DC 02/02/22 08:13 Levothyroxine Sodium (Synthroid) 50 mcg DAILY06 PO 01/30/22 06:00 02/04/22 05:42 Lorazepam (Ativan) 1 mg TID PO 01/29/22 23:00 01/30/22 16:59 DC 01/30/22 13:58 Melatonin (Melatonin) 6 mg QHS PO 01/29/22 23:00 02/04/22 20:32 Metformin HCl (Glucophage) 1,000 mg BIDWMEALS PO 01/30/22 08:00 02/04/22 16:01 Olanzapine (ZyPREXA) 10 mg BID PO 01/29/22 23:00 02/04/22 20:32 Polyethylene Glycol (miraLAX) 17 gm DAILY PO 01/30/22 09:00 02/04/22 09:00 Saliva Substitute (Biotene Moisturizing Mouth) 1 spray PRN Q4HRS PRN MM DRY MOUTH 01/29/22 22:15 Senna/Docusate Sodium (Senna Plus) 1 tab BID PO 01/29/22 23:00 01/30/22 20:52 DC 01/29/22 23:42 Trazodone HCl (Desyrel) 50 mg PRN QHS PRN PO INSOMNIA 01/29/22 22:15 Trazodone HCl (Desyrel) 50 mg QHS PO 01/29/22 23:00 02/04/22 20:32 Acyclovir (Zovirax) 400 mg BID PO 01/29/22 23:00 02/04/22 20:32 Non-Formulary Medication (Biotin ) 5 mg DAILY PO 01/30/22 09:00 01/29/22 23:06 DC Artificial Tears (Refresh Classic) 1 drop BID OU 01/29/22 23:00 02/04/22 20:32 Cyanocobalamin (Vitamin B-12) 1,000 mcg DAILY PO 01/30/22 09:00 02/04/22 08:26 Glucagon (Glucagen Kit) 1 mg PRN DAILY PRN IM BS<60 and unresponsive or NPO 01/29/22 23:15 Insulin Glargine (Lantus Syringe) 30 unit QHS SQ 01/29/22 23:00 02/04/22 21:26 Lactobacillus Rhamnosus (Culturelle) 1 cap DAILY PO 01/30/22 09:00 02/04/22 08:25 Lurasidone HCl (Latuda) 80 mg DAILY PO 01/30/22 09:00 02/04/22 08:27 Multivitamins/ Calcium (Thera-M Plus) 1 tab DAILY PO 01/30/22 09:00 02/04/22 08:25 Nitrofurantoin Macrocrystals (Macrobid) 100 mg QHS PO 01/30/22 21:00 02/04/22 20:32 Lorazepam (Ativan) 0.5 mg BID PO 01/31/22 09:00 02/04/22 20:34 Lorazepam (Ativan) 1 mg PRN QHS PRN PO ANXIETY / AGITATION 01/30/22 17:00 Divalproex Sodium (Depakote Er) 750 mg QHS PO 01/30/22 21:00 02/04/22 20:32 Senna/Docusate Sodium (Senna Plus) 1 tab PRN BID PRN PO CONSTIPATION 01/30/22 21:00 Polymyxin/ Trimethoprim Sulfate (Polytrim) 1 drop QID OU 01/30/22 21:00 01/30/22 23:42 DC 01/30/22 21:00 Polymyxin/ Trimethoprim Sulfate (Polytrim) 1 drop QID OD 01/31/22 09:00 02/10/22 08:59 02/04/22 20:34 Potassium Chloride (Klor-Con) 20 meq STK-MED ONCE PO 01/29/22 21:30 02/01/22 09:35 DC Haloperidol (Haldol) 2.5 mg DAILY PO 02/03/22 09:00 02/04/22 08:27 I have reviewed the current psychotropics carefully including drug interactions. Risk benefit ratio favors no change other than as noted in my dictated progress note. Diagnosis: Problems: (1) Schizophrenia, chronic with acute exacerbation (2) Impulse control disorder, unspecified (3) Anxiety disorder, unspecified (4) Bipolar disorder, current episode mixed, severe, with psychotic features (5) Mild cognitive impairment PHI GLASER MD February 04, 2022 21:51
[2022-02-04] MEDS: MAGNESIUM HYDROXIDE 2,400 MG/30 ML ORAL.SUSP. PO PRN (23:10)
[2022-02-05] MEDS: LEVOTHYROXINE 50 MCG TABLET PO SCH (05:41)
[2022-02-05 05:58] VITALS: BP 114/64
[2022-02-05 07:18] LABS: BASO % 0 % (0-3); EOS % 0 % (0-3); HEMATOCRIT 37.5 % (36.0-47.0); HEMOGLOBIN 12.6 g/dL (12.0-15.5); LYMPH # 1.5 x10^3/uL (1.0-4.8); LYMPH % 27 % (24-48); MEAN CORPUSCULAR HEMOGLOBIN 30 pg (25-35); MEAN CORPUSCULAR HGB CONC 34 g/dL (31-37); MEAN CORPUSCULAR VOLUME 90 fL (79-100); MONO # 0.5 x10^3/uL (0.0-1.1); MONO % 9 % (0-9); NEUT # 3.6 x10^3uL (1.8-7.7); NEUT % 63 % (31-73); PLATELET COUNT 236 x10^3/uL (140-400); RED BLOOD COUNT 4.19 x10^6/uL (3.50-5.40); RED CELL DISTRIBUTION WIDTH 13.8 % (11.5-14.5); WHITE BLOOD COUNT 5.6 x10^3/uL (4.0-11.0)
[2022-02-05 07:33] LABS: ALBUMIN 3.1 g/dL (3.4-5.0); ALK PHOS 82 U/L (46-116); ALT (SGPT) 59 U/L (14-59); ANION GAP 9 (6-14); AST (SGOT) 50 U/L (15-37); BLOOD UREA NITROGEN 17 mg/dL (7-20); BUN/CREATININE RATIO 21 (6-20); CALCIUM 9.3 mg/dL (8.5-10.1); CARBON DIOXIDE 28 mmol/L (21-32); CHLORIDE 104 mmol/L (98-107); CREATININE 0.8 mg/dL (0.6-1.0); GFR 70.7; GLUCOSE 125 mg/dL (70-99); POTASSIUM 3.8 mmol/L (3.5-5.1); SODIUM 141 mmol/L (136-145); TOTAL BILIRUBIN 0.4 mg/dL (0.2-1.0); TOTAL PROTEIN 6.2 g/dL (6.4-8.2)
[2022-02-05 07:35] LABS: VAL ACID 62 mcg/mL (50-100)
[2022-02-05] MEDS: ASPIRIN ENTERIC COATED 81 MG TABLET.DR. PO SCH (08:10)
[2022-02-05] MEDS: metFORMIN 500 MG TABLET PO SCH ×2 (08:10→17:25)
[2022-02-05] MEDS: MULTIVITAMIN with MINERAL TABLET. PO SCH (08:10)
[2022-02-05] MEDS: CHOLECALCIFEROL (VITAMIN D3) 1,000 UNIT TABLET PO SCH (08:10)
[2022-02-05] MEDS: LURASIDONE 40 MG TABLET. PO SCH (08:10)
[2022-02-05] MEDS: CYANOCOBALAMIN (VITAMIN B-12) 1,000 MCG TABLET. PO SCH (08:10)
[2022-02-05] MEDS: ACYCLOVIR 200 MG CAPSULE PO SCH ×2 (08:11→20:28)
[2022-02-05] MEDS: OLANZapine 10 MG TABLET PO SCH (08:11)
[2022-02-05] MEDS: LACTOBACILLUS RHAMNOSUS GG 1 CAPSULE. PO SCH (08:11)
[2022-02-05] MEDS: LORazepam 0.5 MG TABLET PO SCH ×2 (08:11→20:26)
[2022-02-05] MEDS: HALOPERIDOL 5 MG TABLET PO SCH (08:11)
[2022-02-05] MEDS: GLIMEPIRIDE 2 MG TABLET PO SCH (08:11)
[2022-02-05] MEDS: POLYETHYLENE GLYCOL 3350 17 GM PACKET. PO SCH (08:12)
[2022-02-05] MEDS: POLYVINYL ALCOHOL/POVIDONE/PF OPHTH SOLUTION DROPERETTE. OU SCH ×2 (08:12→20:26)
[2022-02-05] MEDS: POLYMYXIN/TRIMETHOPRIM OPHTH SOLUTION 10ML BOTTLE. OD SCH ×4 (08:21→20:28)
--- NOTE | 2022-02-05 08:29 | PDOC ---
Exam Note: Zay Note: This note is a late entry for 02/03/2022 covers elements not covered in my initial note. Subjective: The patient was seen individually on 02/03/2022, discussed and reviewed the chart with Araceli CABRERA. The patient slept 6-1/2 hours previous night. She is oriented to her name, day of and month. She is compliant with medications, somewhat withdrawn. AST and ALT are elevated and we will have a pharmacy consult to see what medications other than Depakote could contribute to the raised liver enzymes and we will consider stopping that. We may consider adding Wellbutrin as an antidepressant which would be preferable given her bipolar diagnosis if we do have to use an antidepressant. Review of Systems: Ambulation impaired in wheelchair. Hard of hearing. No CV, , pulmonary, eye system symptoms on review. Mental Status Exam: Patient is reasonably oriented. Speech is coherent, has some latency. Abstraction fair. Computation impaired. Language function intact. Attention span short. Mood and affect withdrawn, at time labile but she states she feels manic though she appears almost dysphoric, withdrawn with poor eye contact. No suicidal or homicidal ideation. Laboratory Data: Reviewed. Impression: Bipolar 1 disorder mixed with psychotic features. Anxiety disorder unspecified. Impulse control disorder unspecified. Plan: Continue current psychotropics mentioned in my initial note. Reviewed drug interactions, risk-benefit ratio. We will complete pharmacy consult and then make decisions what is next for the psychotropics if the liver enzymes continue to be elevated. Assessment: Vital Signs/I&O: Vital Signs Date Time Temp Pulse Resp B/P (MAP) Pulse Ox O2 Delivery O2 Flow Rate FiO2 02/05/22 05:58 97.7 65 16 114/64 (81) 91 Room Air I & O 02/04/22 02/04/22 02/05/22 15:00 23:00 07:00 Intake Total 720 ml 240 ml Balance 720 ml 240 ml Labs: Laboratory Tests Test 02/04/22 19:17 02/05/22 06:52 02/05/22 07:38 Glucose (Fingerstick) 189 mg/dL (70-99) H 135 mg/dL (70-99) H White Blood Count 5.6 x10^3/uL (4.0-11.0) Red Blood Count 4.19 x10^6/uL (3.50-5.40) Hemoglobin 12.6 g/dL (12.0-15.5) Hematocrit 37.5 % (36.0-47.0) Mean Corpuscular Volume 90 fL (79-100) Mean Corpuscular Hemoglobin 30 pg (25-35) Mean Corpuscular Hemoglobin Concent 34 g/dL (31-37) Red Cell Distribution Width 13.8 % (11.5-14.5) Platelet Count 236 x10^3/uL (140-400) Neutrophils (%) (Auto) 63 % (31-73) Lymphocytes (%) (Auto) 27 % (24-48) Monocytes (%) (Auto) 9 % (0-9) Eosinophils (%) (Auto) 0 % (0-3) Basophils (%) (Auto) 0 % (0-3) Neutrophils # (Auto) 3.6 x10^3uL (1.8-7.7) Lymphocytes # (Auto) 1.5 x10^3/uL (1.0-4.8) Monocytes # (Auto) 0.5 x10^3/uL (0.0-1.1) Eosinophils # (Auto) 0.0 x10^3/uL (0.0-0.7) Basophils # (Auto) 0.0 x10^3/uL (0.0-0.2) Sodium Level 141 mmol/L (136-145) Potassium Level 3.8 mmol/L (3.5-5.1) Chloride Level 104 mmol/L (98-107) Carbon Dioxide Level 28 mmol/L (21-32) Anion Gap 9 (6-14) Blood Urea Nitrogen 17 mg/dL (7-20) Creatinine 0.8 mg/dL (0.6-1.0) Estimated GFR (Cockcroft-Gault) 70.7 BUN/Creatinine Ratio 21 (6-20) H Glucose Level 125 mg/dL (70-99) H Calcium Level 9.3 mg/dL (8.5-10.1) Total Bilirubin 0.4 mg/dL (0.2-1.0) Aspartate Amino Transferase (AST) 50 U/L (15-37) H Alanine Aminotransferase (ALT) 59 U/L (14-59) Alkaline Phosphatase 82 U/L (46-116) Total Protein 6.2 g/dL (6.4-8.2) L Albumin 3.1 g/dL (3.4-5.0) L Albumin/Globulin Ratio 1.0 (1.0-1.7) Valproic Acid Level 62 mcg/mL (50-100) Valproic Acid Last Dose Date 02/04/22 Valproic Acid Last Dose Time 2100 Current Medications: I have reviewed the current psychotropics carefully including drug interactions. Risk benefit ratio favors no change other than as noted in my dictated progress note. Diagnosis: Problems: (1) Schizophrenia, chronic with acute exacerbation (2) Impulse control disorder, unspecified (3) Anxiety disorder, unspecified (4) Bipolar disorder, current episode mixed, severe, with psychotic features (5) Mild cognitive impairment PHI GLASER MD February 05, 2022 08:29
--- NOTE | 2022-02-05 09:02 | PDOC ---
Exam Note: Zay Note: This note is a late entry for 02/04/2022 covers elements not covered in my initial note. Subjective: The patient was seen individually on 02/04/2022, discussed and reviewed the chart with Jace CABRERA. The patient slept 6-1/2 hours previous night. Overall she has been anxious, restless, somewhat presents as she can do certain things even though she has a capability of doing it. Apparently she was making it appear that she cannot drink water, compliant with medications. Review of Systems: Ambulation impaired in wheelchair. Hard of hearing. No CV, , pulmonary, eye system symptoms on review. Mental Status Exam: Patient is oriented to herself and situation. Speech low in rate and rhythm, low in volume. Often response is monosyllabic. Eye contact poor. Abstraction fair. Computation impaired. Language function intact. Attention span short. Mood and affect withdrawn. Laboratory Data: Reviewed. Impression: Bipolar 1 disorder mixed with psychotic features. Anxiety disorder unspecified. Impulse control disorder unspecified. Plan: Continue current psychotropics mentioned in my initial note. Reviewed drug interactions, risk-benefit ratio. Pharmacist has determined Depakote is contributing to the raised liver enzymes. We will consult Dr. Arrieta since the patient has a history of seizure disorder and I do not want to taper and stop the Depakote unless there is something on board covering for this. Assessment: Vital Signs/I&O: Vital Signs Date Time Temp Pulse Resp B/P (MAP) Pulse Ox O2 Delivery O2 Flow Rate FiO2 02/05/22 05:58 97.7 65 16 114/64 (81) 91 Room Air I & O 02/04/22 02/04/22 02/05/22 15:00 23:00 07:00 Intake Total 720 ml 240 ml Balance 720 ml 240 ml Labs: Laboratory Tests Test 02/04/22 19:17 02/05/22 06:52 02/05/22 07:38 Glucose (Fingerstick) 189 mg/dL (70-99) H 135 mg/dL (70-99) H White Blood Count 5.6 x10^3/uL (4.0-11.0) Red Blood Count 4.19 x10^6/uL (3.50-5.40) Hemoglobin 12.6 g/dL (12.0-15.5) Hematocrit 37.5 % (36.0-47.0) Mean Corpuscular Volume 90 fL (79-100) Mean Corpuscular Hemoglobin 30 pg (25-35) Mean Corpuscular Hemoglobin Concent 34 g/dL (31-37) Red Cell Distribution Width 13.8 % (11.5-14.5) Platelet Count 236 x10^3/uL (140-400) Neutrophils (%) (Auto) 63 % (31-73) Lymphocytes (%) (Auto) 27 % (24-48) Monocytes (%) (Auto) 9 % (0-9) Eosinophils (%) (Auto) 0 % (0-3) Basophils (%) (Auto) 0 % (0-3) Neutrophils # (Auto) 3.6 x10^3uL (1.8-7.7) Lymphocytes # (Auto) 1.5 x10^3/uL (1.0-4.8) Monocytes # (Auto) 0.5 x10^3/uL (0.0-1.1) Eosinophils # (Auto) 0.0 x10^3/uL (0.0-0.7) Basophils # (Auto) 0.0 x10^3/uL (0.0-0.2) Sodium Level 141 mmol/L (136-145) Potassium Level 3.8 mmol/L (3.5-5.1) Chloride Level 104 mmol/L (98-107) Carbon Dioxide Level 28 mmol/L (21-32) Anion Gap 9 (6-14) Blood Urea Nitrogen 17 mg/dL (7-20) Creatinine 0.8 mg/dL (0.6-1.0) Estimated GFR (Cockcroft-Gault) 70.7 BUN/Creatinine Ratio 21 (6-20) H Glucose Level 125 mg/dL (70-99) H Calcium Level 9.3 mg/dL (8.5-10.1) Total Bilirubin 0.4 mg/dL (0.2-1.0) Aspartate Amino Transferase (AST) 50 U/L (15-37) H Alanine Aminotransferase (ALT) 59 U/L (14-59) Alkaline Phosphatase 82 U/L (46-116) Total Protein 6.2 g/dL (6.4-8.2) L Albumin 3.1 g/dL (3.4-5.0) L Albumin/Globulin Ratio 1.0 (1.0-1.7) Valproic Acid Level 62 mcg/mL (50-100) Valproic Acid Last Dose Date 02/04/22 Valproic Acid Last Dose Time 2100 Current Medications: I have reviewed the current psychotropics carefully including drug interactions. Risk benefit ratio favors no change other than as noted in my dictated progress note. Diagnosis: Problems: (1) Impulse control disorder, unspecified (2) Anxiety disorder, unspecified (3) Bipolar disorder, current episode mixed, severe, with psychotic features (4) Mild cognitive impairment (5) Schizophrenia, catatonic, chronic with acute exacerbation PHI GLASER MD February 05, 2022 09:02
[2022-02-05 16:08] VITALS: BP 158/79
[2022-02-05] MEDS: DIVALPROEX ER 250 MG TAB.ER.24H. PO SCH (20:25)
[2022-02-05] MEDS: traZODone 50 MG TABLET. PO SCH (20:26)
[2022-02-05] MEDS: MELATONIN 3 MG TABLET PO SCH (20:26)
[2022-02-05] MEDS: NITROFURANTOIN MONOHYD/M-CRYST 100 MG CAPSULE. PO SCH (20:26)
[2022-02-05] MEDS: OLANZapine 7.5 MG TABLET PO SCH (20:28)
--- NOTE | 2022-02-05 21:30 | PDOC ---
Exam Note: Zay Note: Please also refer to the separate dictated note~for this date of service dictated separately.~Patient seen individually. Discussed the patient with Nursing staff reviewed the chart.~Reviewed interim history and current functioning. Reviewed vital signs,~Labs/ Radiology~and current medications noted below. Continue current treatment with the changes noted in the dictated addendum note Assessment: Vital Signs/I&O: Vital Signs Date Time Temp Pulse Resp B/P (MAP) Pulse Ox O2 Delivery O2 Flow Rate FiO2 02/05/22 16:08 97.1 101 18 158/79 (105) 96 Room Air I & O 02/04/22 02/04/22 02/05/22 14:59 22:59 06:59 Intake Total 720 ml 240 ml Balance 720 ml 240 ml Labs: Laboratory Tests Test 02/05/22 06:52 02/05/22 07:38 02/05/22 19:08 White Blood Count 5.6 x10^3/uL (4.0-11.0) Red Blood Count 4.19 x10^6/uL (3.50-5.40) Hemoglobin 12.6 g/dL (12.0-15.5) Hematocrit 37.5 % (36.0-47.0) Mean Corpuscular Volume 90 fL (79-100) Mean Corpuscular Hemoglobin 30 pg (25-35) Mean Corpuscular Hemoglobin Concent 34 g/dL (31-37) Red Cell Distribution Width 13.8 % (11.5-14.5) Platelet Count 236 x10^3/uL (140-400) Neutrophils (%) (Auto) 63 % (31-73) Lymphocytes (%) (Auto) 27 % (24-48) Monocytes (%) (Auto) 9 % (0-9) Eosinophils (%) (Auto) 0 % (0-3) Basophils (%) (Auto) 0 % (0-3) Neutrophils # (Auto) 3.6 x10^3uL (1.8-7.7) Lymphocytes # (Auto) 1.5 x10^3/uL (1.0-4.8) Monocytes # (Auto) 0.5 x10^3/uL (0.0-1.1) Eosinophils # (Auto) 0.0 x10^3/uL (0.0-0.7) Basophils # (Auto) 0.0 x10^3/uL (0.0-0.2) Sodium Level 141 mmol/L (136-145) Potassium Level 3.8 mmol/L (3.5-5.1) Chloride Level 104 mmol/L (98-107) Carbon Dioxide Level 28 mmol/L (21-32) Anion Gap 9 (6-14) Blood Urea Nitrogen 17 mg/dL (7-20) Creatinine 0.8 mg/dL (0.6-1.0) Estimated GFR (Cockcroft-Gault) 70.7 BUN/Creatinine Ratio 21 (6-20) H Glucose Level 125 mg/dL (70-99) H Calcium Level 9.3 mg/dL (8.5-10.1) Total Bilirubin 0.4 mg/dL (0.2-1.0) Aspartate Amino Transferase (AST) 50 U/L (15-37) H Alanine Aminotransferase (ALT) 59 U/L (14-59) Alkaline Phosphatase 82 U/L (46-116) Total Protein 6.2 g/dL (6.4-8.2) L Albumin 3.1 g/dL (3.4-5.0) L Albumin/Globulin Ratio 1.0 (1.0-1.7) Valproic Acid Level 62 mcg/mL (50-100) Valproic Acid Last Dose Date 02/04/22 Valproic Acid Last Dose Time 2100 Glucose (Fingerstick) 135 mg/dL (70-99) H 202 mg/dL (70-99) H Current Medications: Meds: Laboratory Tests Test 02/05/22 06:52 02/05/22 07:38 02/05/22 19:08 White Blood Count 5.6 x10^3/uL Red Blood Count 4.19 x10^6/uL Hemoglobin 12.6 g/dL Hematocrit 37.5 % Mean Corpuscular Volume 90 fL Mean Corpuscular Hemoglobin 30 pg Mean Corpuscular Hemoglobin Concent 34 g/dL Red Cell Distribution Width 13.8 % Platelet Count 236 x10^3/uL Neutrophils (%) (Auto) 63 % Lymphocytes (%) (Auto) 27 % Monocytes (%) (Auto) 9 % Eosinophils (%) (Auto) 0 % Basophils (%) (Auto) 0 % Neutrophils # (Auto) 3.6 x10^3uL Lymphocytes # (Auto) 1.5 x10^3/uL Monocytes # (Auto) 0.5 x10^3/uL Eosinophils # (Auto) 0.0 x10^3/uL Basophils # (Auto) 0.0 x10^3/uL Sodium Level 141 mmol/L Potassium Level 3.8 mmol/L Chloride Level 104 mmol/L Carbon Dioxide Level 28 mmol/L Anion Gap 9 Blood Urea Nitrogen 17 mg/dL Creatinine 0.8 mg/dL Estimated GFR (Cockcroft-Gault) 70.7 BUN/Creatinine Ratio 21 Glucose Level 125 mg/dL Calcium Level 9.3 mg/dL Total Bilirubin 0.4 mg/dL Aspartate Amino Transf (AST/SGOT) 50 U/L Alanine Aminotransferase (ALT/SGPT) 59 U/L Alkaline Phosphatase 82 U/L Total Protein 6.2 g/dL Albumin 3.1 g/dL Albumin/Globulin Ratio 1.0 Valproic Acid (Depakene) Level 62 mcg/mL Valproic Acid Last Dose Date 02/04/22 Valproic Acid Last Dose Time 2100 Glucose (Fingerstick) 135 mg/dL 202 mg/dL Current Medications Medications (Trade) Dose Ordered Sig/Jhony Route PRN Reason Start Time Stop Time Status Last Admin Dose Admin Potassium Chloride (Klor-Con) 40 meq 1X ONCE PO 01/29/22 21:30 01/29/22 21:43 DC 01/29/22 21:32 Acetaminophen (Tylenol) 650 mg PRN Q6HRS PRN PO MILD PAIN / TEMP > 100.3'F 01/29/22 22:00 01/29/22 22:57 DC Multi-Ingredient Ointment (Analgesic [place]) 1 izzy PRN QID PRN TP MUSCLE PAIN 01/29/22 22:00 Al Hydroxide/Mg Hydroxide (Mylanta Plus Xs) 15 ml PRN AFTMEALHC PRN PO DYSPEPSIA 01/29/22 22:00 Magnesium Hydroxide (Milk Of Magnesia) 2,400 mg PRN QHS PRN PO 1ST CHOICE CONSTIPATION 01/29/22 22:00 02/04/22 23:10 Acetaminophen (Tylenol) 500 mg PRN Q4HRS PRN PO PAIN 01/29/22 22:15 02/03/22 08:30 Aspirin (Aspirin Enteric Coated) 81 mg DAILY PO 01/30/22 09:00 02/05/22 08:10 Bisacodyl (Dulcolax Supp) 10 mg PRN DAILY PRN RC 2ND CHOICE CONSTIPATION 01/29/22 22:15 Vitamin D (Vitamin D3) 2,000 unit DAILY PO 01/30/22 09:00 02/05/22 08:10 Glucose (Insta-Glucose) 15 gm PRN Q15MIN PRN PO low blood sugar 01/29/22 22:15 Divalproex Sodium (Depakote) 125 mg TID PO 01/29/22 23:00 01/30/22 16:59 DC 01/30/22 13:59 Glimepiride (Amaryl) 2 mg DAILY PO 01/30/22 09:00 02/05/22 08:11 Haloperidol (Haldol) 2.5 mg BID PO 01/29/22 23:00 02/02/22 17:12 DC 02/02/22 08:13 Levothyroxine Sodium (Synthroid) 50 mcg DAILY06 PO 01/30/22 06:00 02/05/22 05:41 Lorazepam (Ativan) 1 mg TID PO 01/29/22 23:00 01/30/22 16:59 DC 01/30/22 13:58 Melatonin (Melatonin) 6 mg QHS PO 01/29/22 23:00 02/05/22 20:26 Metformin HCl (Glucophage) 1,000 mg BIDWMEALS PO 01/30/22 08:00 02/05/22 17:25 Olanzapine (ZyPREXA) 10 mg BID PO 01/29/22 23:00 02/05/22 17:08 DC 02/05/22 08:11 Polyethylene Glycol (miraLAX) 17 gm DAILY PO 01/30/22 09:00 02/05/22 08:12 Saliva Substitute (Biotene Moisturizing Mouth) 1 spray PRN Q4HRS PRN MM DRY MOUTH 01/29/22 22:15 Senna/Docusate Sodium (Senna Plus) 1 tab BID PO 01/29/22 23:00 01/30/22 20:52 DC 01/29/22 23:42 Trazodone HCl (Desyrel) 50 mg PRN QHS PRN PO INSOMNIA 01/29/22 22:15 Trazodone HCl (Desyrel) 50 mg QHS PO 01/29/22 23:00 02/05/22 20:26 Acyclovir (Zovirax) 400 mg BID PO 01/29/22 23:00 02/05/22 20:28 Non-Formulary Medication (Biotin ) 5 mg DAILY PO 01/30/22 09:00 01/29/22 23:06 DC Artificial Tears (Refresh Classic) 1 drop BID OU 01/29/22 23:00 02/05/22 20:26 Cyanocobalamin (Vitamin B-12) 1,000 mcg DAILY PO 01/30/22 09:00 02/05/22 08:10 Glucagon (Glucagen Kit) 1 mg PRN DAILY PRN IM BS<60 and unresponsive or NPO 01/29/22 23:15 Insulin Glargine (Lantus Syringe) 30 unit QHS SQ 01/29/22 23:00 02/04/22 21:26 Lactobacillus Rhamnosus (Culturelle) 1 cap DAILY PO 01/30/22 09:00 02/05/22 08:11 Lurasidone HCl (Latuda) 80 mg DAILY PO 01/30/22 09:00 02/05/22 08:10 Multivitamins/ Calcium (Thera-M Plus) 1 tab DAILY PO 01/30/22 09:00 02/05/22 08:10 Nitrofurantoin Macrocrystals (Macrobid) 100 mg QHS PO 01/30/22 21:00 02/05/22 20:26 Lorazepam (Ativan) 0.5 mg BID PO 01/31/22 09:00 02/05/22 20:26 Lorazepam (Ativan) 1 mg PRN QHS PRN PO ANXIETY / AGITATION 01/30/22 17:00 Divalproex Sodium (Depakote Er) 750 mg QHS PO 01/30/22 21:00 02/05/22 20:25 Senna/Docusate Sodium (Senna Plus) 1 tab PRN BID PRN PO CONSTIPATION 01/30/22 21:00 Polymyxin/ Trimethoprim Sulfate (Polytrim) 1 drop QID OU 01/30/22 21:00 01/30/22 23:42 DC 01/30/22 21:00 Polymyxin/ Trimethoprim Sulfate (Polytrim) 1 drop QID OD 01/31/22 09:00 02/10/22 08:59 02/05/22 20:28 Potassium Chloride (Klor-Con) 20 meq STK-MED ONCE PO 01/29/22 21:30 02/01/22 09:35 DC Haloperidol (Haldol) 2.5 mg DAILY PO 02/03/22 09:00 02/05/22 17:08 DC 02/05/22 08:11 Olanzapine (ZyPREXA) 7.5 mg BID PO 02/05/22 21:00 02/05/22 20:28 Bupropion HCl (Wellbutrin Xl) 150 mg DAILY PO 02/06/22 09:00 Current Medications Medications (Trade) Dose Ordered Sig/Jhony Route PRN Reason Start Time Stop Time Status Last Admin Dose Admin Olanzapine (ZyPREXA) 7.5 mg BID PO 02/05/22 21:00 02/05/22 20:28 I have reviewed the current psychotropics carefully including drug interactions. Risk benefit ratio favors no change other than as noted in my dictated progress note. Diagnosis: Problems: (1) Impulse control disorder, unspecified (2) Anxiety disorder, unspecified (3) Bipolar disorder, current episode mixed, severe, with psychotic features (4) Mild cognitive impairment (5) Schizophrenia, catatonic, chronic with acute exacerbation PHI GLASER MD February 05, 2022 21:30
[2022-02-05] MEDS: INSULIN GLARGINE SYRINGE. SQ SCH (21:54)
[2022-02-05] MEDS: MAGNESIUM HYDROXIDE 2,400 MG/30 ML ORAL.SUSP. PO PRN (23:46)
[2022-02-06] MEDS: LEVOTHYROXINE 50 MCG TABLET PO SCH (05:52)
[2022-02-06 06:15] VITALS: BP 105/64
[2022-02-06] MEDS: MULTIVITAMIN with MINERAL TABLET. PO SCH (08:35)
[2022-02-06] MEDS: LACTOBACILLUS RHAMNOSUS GG 1 CAPSULE. PO SCH (08:35)
[2022-02-06] MEDS: CHOLECALCIFEROL (VITAMIN D3) 1,000 UNIT TABLET PO SCH (08:36)
[2022-02-06] MEDS: ASPIRIN ENTERIC COATED 81 MG TABLET.DR. PO SCH (08:36)
[2022-02-06] MEDS: ACYCLOVIR 200 MG CAPSULE PO SCH ×2 (08:36→20:55)
[2022-02-06] MEDS: CYANOCOBALAMIN (VITAMIN B-12) 1,000 MCG TABLET. PO SCH (08:36)
[2022-02-06] MEDS: OLANZapine 7.5 MG TABLET PO SCH ×2 (08:36→20:55)
[2022-02-06] MEDS: POLYVINYL ALCOHOL/POVIDONE/PF OPHTH SOLUTION DROPERETTE. OU SCH ×2 (08:36→20:56)
[2022-02-06] MEDS: metFORMIN 500 MG TABLET PO SCH ×2 (08:36→17:11)
[2022-02-06] MEDS: GLIMEPIRIDE 2 MG TABLET PO SCH (08:36)
[2022-02-06] MEDS: POLYMYXIN/TRIMETHOPRIM OPHTH SOLUTION 10ML BOTTLE. OD SCH ×4 (08:37→20:56)
[2022-02-06] MEDS: buPROPion XL 150 MG TAB.ER.24H PO SCH (08:37)
[2022-02-06] MEDS: LORazepam 0.5 MG TABLET PO SCH ×2 (08:37→20:55)
[2022-02-06] MEDS: NYSTATIN TOPICAL POWDER 15GM BOTTLE. TP SCH ×2 (08:38→20:56)
[2022-02-06] MEDS: POLYETHYLENE GLYCOL 3350 17 GM PACKET. PO SCH (08:38)
[2022-02-06] MEDS: LURASIDONE 40 MG TABLET. PO SCH (08:42)
--- NOTE | 2022-02-06 08:42 | PDOC ---
Exam Note: Zay Note: This note is a late entry for 02/05/2022 covers elements not covered in my initial note. Subjective: The patient was seen individually on 02/05/2022, discussed and reviewed the chart with Guero CABRERA. The patient slept 6-1/2 hours previous night. She has been acting helpless. AST is 50 and ALT 59 is improved from before. We will repeat it on Saturday and valproic acid level is 62. She was seen by Dr. Arrieta, still remains on the Depakote and as liver enzymes are improving perhaps we will leave it unchanged for now. She has been leaning over to one side. Review of Systems: Ambulation impaired in wheelchair. Hard of hearing. No CV, , pulmonary, eye system symptoms on review. She does complain of tiredness. Mental Status Exam: Patient is oriented to herself and situation. I met with her in the dayroom. Speech has some latency, coherent. Often response is monosyllabic. Abstraction fair. Computation impaired. Language function intact. Mood and affect withdrawn. Laboratory Data: Reviewed. Impression: Schizoaffective disorder, bipolar type, depressed. Anxiety disorder unspecified. Impulse control disorder unspecified. Plan: Continue current psychotropics mentioned in my initial note. Reviewed drug interactions, risk-benefit ratio. Stop the Haldol 2.5 mg daily. Reduce Zyprexa from 10 mg b.i.d. to 7.5 mg b.i.d. No clear psychotic symptoms noted. Maintain Ativan unchanged 1 mg t.i.d. but may reduce this gradually. Maintain Latuda and trazodone, melatonin. Start Wellbutrin XL 150 mg a day. Continue Depakote ER 750 mg h.s., level therapeutic. Follow labs level for liver enzymes. Assessment: Vital Signs/I&O: Vital Signs Date Time Temp Pulse Resp B/P (MAP) Pulse Ox O2 Delivery O2 Flow Rate FiO2 02/06/22 06:15 99.2 97 16 105/64 (78) 94 Room Air I & O 02/05/22 02/05/22 02/06/22 14:59 22:59 06:59 Intake Total 360 ml 240 ml Balance 360 ml 240 ml Labs: Laboratory Tests Test 02/05/22 19:08 02/06/22 07:28 Glucose (Fingerstick) 202 mg/dL (70-99) H 130 mg/dL (70-99) H Current Medications: Meds: Current Medications Medications (Trade) Dose Ordered Sig/Jhony Route PRN Reason Start Time Stop Time Status Last Admin Dose Admin Olanzapine (ZyPREXA) 7.5 mg BID PO 02/05/22 21:00 02/05/22 20:28 I have reviewed the current psychotropics carefully including drug interactions. Risk benefit ratio favors no change other than as noted in my dictated progress note. Diagnosis: Problems: (1) Impulse control disorder, unspecified (2) Anxiety disorder, unspecified (3) Bipolar disorder, current episode mixed, severe, with psychotic features (4) Mild cognitive impairment (5) Schizophrenia, catatonic, chronic with acute exacerbation PHI GLASER MD February 06, 2022 08:42
[2022-02-06 16:21] VITALS: BP 156/85
[2022-02-06] MEDS: MELATONIN 3 MG TABLET PO SCH (20:55)
[2022-02-06] MEDS: DIVALPROEX ER 250 MG TAB.ER.24H. PO SCH (20:56)
[2022-02-06] MEDS: traZODone 50 MG TABLET. PO SCH (20:56)
[2022-02-06] MEDS: NITROFURANTOIN MONOHYD/M-CRYST 100 MG CAPSULE. PO SCH (20:56)
[2022-02-06] MEDS: INSULIN GLARGINE SYRINGE. SQ SCH (21:00)
--- NOTE | 2022-02-06 21:34 | PDOC ---
Exam Note: Zay Note: Please also refer to the separate dictated note~for this date of service dictated separately.~Patient seen individually. Discussed the patient with Nursing staff reviewed the chart.~Reviewed interim history and current functioning. Reviewed vital signs,~Labs/ Radiology~and current medications noted below. Continue current treatment with the changes noted in the dictated addendum note Assessment: Vital Signs/I&O: Vital Signs Date Time Temp Pulse Resp B/P (MAP) Pulse Ox O2 Delivery O2 Flow Rate FiO2 02/06/22 16:21 97.1 93 16 156/85 (108) 97 Room Air I & O 02/05/22 02/05/22 02/06/22 15:00 23:00 07:00 Intake Total 360 ml 240 ml Balance 360 ml 240 ml Labs: Laboratory Tests Test 02/06/22 07:28 02/06/22 07:50 02/06/22 19:16 Glucose (Fingerstick) 130 mg/dL (70-99) H 176 mg/dL (70-99) H POC SARS CoV-2 Antigen Negative (NEGATIVE) Current Medications: Meds: Laboratory Tests Test 02/06/22 07:28 02/06/22 07:50 02/06/22 19:16 Glucose (Fingerstick) 130 mg/dL 176 mg/dL POC SARS CoV-2 Antigen Negative Current Medications Medications (Trade) Dose Ordered Sig/Jhony Route PRN Reason Start Time Stop Time Status Last Admin Dose Admin Potassium Chloride (Klor-Con) 40 meq 1X ONCE PO 01/29/22 21:30 01/29/22 21:43 DC 01/29/22 21:32 Acetaminophen (Tylenol) 650 mg PRN Q6HRS PRN PO MILD PAIN / TEMP > 100.3'F 01/29/22 22:00 01/29/22 22:57 DC Multi-Ingredient Ointment (Analgesic [place]) 1 izzy PRN QID PRN TP MUSCLE PAIN 01/29/22 22:00 Al Hydroxide/Mg Hydroxide (Mylanta Plus Xs) 15 ml PRN AFTMEALHC PRN PO DYSPEPSIA 01/29/22 22:00 Magnesium Hydroxide (Milk Of Magnesia) 2,400 mg PRN QHS PRN PO 1ST CHOICE CONSTIPATION 01/29/22 22:00 02/05/22 23:46 Acetaminophen (Tylenol) 500 mg PRN Q4HRS PRN PO PAIN 01/29/22 22:15 02/03/22 08:30 Aspirin (Aspirin Enteric Coated) 81 mg DAILY PO 01/30/22 09:00 02/06/22 08:36 Bisacodyl (Dulcolax Supp) 10 mg PRN DAILY PRN RC 2ND CHOICE CONSTIPATION 01/29/22 22:15 Vitamin D (Vitamin D3) 2,000 unit DAILY PO 01/30/22 09:00 02/06/22 08:36 Glucose (Insta-Glucose) 15 gm PRN Q15MIN PRN PO low blood sugar 01/29/22 22:15 Divalproex Sodium (Depakote) 125 mg TID PO 01/29/22 23:00 01/30/22 16:59 DC 01/30/22 13:59 Glimepiride (Amaryl) 2 mg DAILY PO 01/30/22 09:00 02/06/22 08:36 Haloperidol (Haldol) 2.5 mg BID PO 01/29/22 23:00 02/02/22 17:12 DC 02/02/22 08:13 Levothyroxine Sodium (Synthroid) 50 mcg DAILY06 PO 01/30/22 06:00 02/06/22 05:52 Lorazepam (Ativan) 1 mg TID PO 01/29/22 23:00 01/30/22 16:59 DC 01/30/22 13:58 Melatonin (Melatonin) 6 mg QHS PO 01/29/22 23:00 02/06/22 20:55 Metformin HCl (Glucophage) 1,000 mg BIDWMEALS PO 01/30/22 08:00 02/06/22 17:11 Olanzapine (ZyPREXA) 10 mg BID PO 01/29/22 23:00 02/05/22 17:08 DC 02/05/22 08:11 Polyethylene Glycol (miraLAX) 17 gm DAILY PO 01/30/22 09:00 02/06/22 08:38 Saliva Substitute (Biotene Moisturizing Mouth) 1 spray PRN Q4HRS PRN MM DRY MOUTH 01/29/22 22:15 Senna/Docusate Sodium (Senna Plus) 1 tab BID PO 01/29/22 23:00 01/30/22 20:52 DC 01/29/22 23:42 Trazodone HCl (Desyrel) 50 mg PRN QHS PRN PO INSOMNIA 01/29/22 22:15 Trazodone HCl (Desyrel) 50 mg QHS PO 01/29/22 23:00 02/06/22 20:56 Acyclovir (Zovirax) 400 mg BID PO 01/29/22 23:00 02/06/22 20:55 Non-Formulary Medication (Biotin ) 5 mg DAILY PO 01/30/22 09:00 01/29/22 23:06 DC Artificial Tears (Refresh Classic) 1 drop BID OU 01/29/22 23:00 02/06/22 20:56 Cyanocobalamin (Vitamin B-12) 1,000 mcg DAILY PO 01/30/22 09:00 02/06/22 08:36 Glucagon (Glucagen Kit) 1 mg PRN DAILY PRN IM BS<60 and unresponsive or NPO 01/29/22 23:15 Insulin Glargine (Lantus Syringe) 30 unit QHS SQ 01/29/22 23:00 02/06/22 21:00 Lactobacillus Rhamnosus (Culturelle) 1 cap DAILY PO 01/30/22 09:00 02/06/22 08:35 Lurasidone HCl (Latuda) 80 mg DAILY PO 01/30/22 09:00 02/06/22 08:42 Multivitamins/ Calcium (Thera-M Plus) 1 tab DAILY PO 01/30/22 09:00 02/06/22 08:35 Nitrofurantoin Macrocrystals (Macrobid) 100 mg QHS PO 01/30/22 21:00 02/06/22 20:56 Lorazepam (Ativan) 0.5 mg BID PO 01/31/22 09:00 02/06/22 17:01 DC 02/06/22 08:37 Lorazepam (Ativan) 1 mg PRN QHS PRN PO ANXIETY / AGITATION 01/30/22 17:00 Divalproex Sodium (Depakote Er) 750 mg QHS PO 01/30/22 21:00 02/06/22 20:56 Senna/Docusate Sodium (Senna Plus) 1 tab PRN BID PRN PO CONSTIPATION 01/30/22 21:00 Polymyxin/ Trimethoprim Sulfate (Polytrim) 1 drop QID OU 01/30/22 21:00 01/30/22 23:42 DC 01/30/22 21:00 Polymyxin/ Trimethoprim Sulfate (Polytrim) 1 drop QID OD 01/31/22 09:00 02/10/22 08:59 02/06/22 20:56 Potassium Chloride (Klor-Con) 20 meq STK-MED ONCE PO 01/29/22 21:30 02/01/22 09:35 DC Haloperidol (Haldol) 2.5 mg DAILY PO 02/03/22 09:00 02/05/22 17:08 DC 02/05/22 08:11 Olanzapine (ZyPREXA) 7.5 mg BID PO 02/05/22 21:00 02/06/22 20:55 Bupropion HCl (Wellbutrin Xl) 150 mg DAILY PO 02/06/22 09:00 02/06/22 08:37 Nystatin (Nystop) 1 izzy BID TP 02/06/22 09:00 02/06/22 20:56 Lorazepam (Ativan) 0.5 mg QHS PO 02/06/22 21:00 02/08/22 23:50 02/06/22 20:55 Current Medications Medications (Trade) Dose Ordered Sig/Jhony Route PRN Reason Start Time Stop Time Status Last Admin Dose Admin Bupropion HCl (Wellbutrin Xl) 150 mg DAILY PO 02/06/22 09:00 02/06/22 08:37 Nystatin (Nystop) 1 izzy BID TP 02/06/22 09:00 02/06/22 20:56 Lorazepam (Ativan) 0.5 mg QHS PO 02/06/22 21:00 02/08/22 23:50 02/06/22 20:55 I have reviewed the current psychotropics carefully including drug interactions. Risk benefit ratio favors no change other than as noted in my dictated progress note. Diagnosis: Problems: (1) Impulse control disorder, unspecified (2) Anxiety disorder, unspecified (3) Bipolar disorder, current episode mixed, severe, with psychotic features (4) Mild cognitive impairment (5) Schizophrenia, catatonic, chronic with acute exacerbation PHI GLASER MD February 06, 2022 21:34
[2022-02-07] MEDS: LEVOTHYROXINE 50 MCG TABLET PO SCH (05:14)
[2022-02-07 06:11] VITALS: BP 144/77
[2022-02-07 06:40] LABS: BASO % 1 % (0-3); EOS % 0 % (0-3); HEMATOCRIT 34.8 % (36.0-47.0); HEMOGLOBIN 11.5 g/dL (12.0-15.5); LYMPH # 1.6 x10^3/uL (1.0-4.8); LYMPH % 34 % (24-48); MEAN CORPUSCULAR HEMOGLOBIN 30 pg (25-35); MEAN CORPUSCULAR HGB CONC 33 g/dL (31-37); MEAN CORPUSCULAR VOLUME 90 fL (79-100); MONO # 0.5 x10^3/uL (0.0-1.1); MONO % 10 % (0-9); NEUT # 2.7 x10^3uL (1.8-7.7); NEUT % 56 % (31-73); PLATELET COUNT 190 x10^3/uL (140-400); RED BLOOD COUNT 3.86 x10^6/uL (3.50-5.40); RED CELL DISTRIBUTION WIDTH 13.8 % (11.5-14.5); WHITE BLOOD COUNT 4.9 x10^3/uL (4.0-11.0)
[2022-02-07 06:46] LABS: ALBUMIN 2.8 g/dL (3.4-5.0); ALBUMIN/GLOBULIN RATIO 0.9 (1.0-1.7); ALK PHOS 70 U/L (46-116); ALT (SGPT) 48 U/L (14-59); ANION GAP 7 (6-14); AST (SGOT) 36 U/L (15-37); BLOOD UREA NITROGEN 22 mg/dL (7-20); BUN/CREATININE RATIO 24 (6-20); CALCIUM 8.8 mg/dL (8.5-10.1); CARBON DIOXIDE 29 mmol/L (21-32); CHLORIDE 106 mmol/L (98-107); CREATININE 0.9 mg/dL (0.6-1.0); GFR 61.7; GLUCOSE 76 mg/dL (70-99); POTASSIUM 3.7 mmol/L (3.5-5.1); SODIUM 142 mmol/L (136-145); TOTAL BILIRUBIN 0.3 mg/dL (0.2-1.0); TOTAL PROTEIN 5.8 g/dL (6.4-8.2)
[2022-02-07 07:06] LABS: VAL ACID 63 mcg/mL (50-100)
--- NOTE | 2022-02-07 08:51 | PDOC ---
Exam Note: Zay Note: This note is a late entry for 02/06/2022 covers elements not covered in my initial note. Subjective: The patient was seen individually on 02/06/2022, discussed and reviewed the chart with Guero CABRERA. There has been Covid exposure on the unit and the unit has been placed on quarantine as determined by Infectious Disease Department. The patient slept 8-1/4 hours previous night. She was resistive to medications last night. She was more alert during the day today with tremors. On careful review of her psychotropics indicate she is on Ativan 0.5 mg b.i.d. Given her sedation, we will reduce to 0.5 mg once a day for 3 days, then stop it. Review of Systems: Ambulation impaired in wheelchair. Hard of hearing. No CV, , pulmonary, eye system symptoms on review. Mental Status Exam: Patient is oriented to herself and situation. I met with her in the dining room. Speech coherent. Often response is monosyllabic. Abstraction fair. Computation impaired. Language function intact. Mood and affect withdrawn. Laboratory Data: Reviewed. Impression: Schizoaffective disorder, bipolar type, depressed. Anxiety disorder unspecified. Impulse control disorder unspecified. Plan: Continue current psychotropics mentioned in my initial note. Reviewed drug interactions, risk-benefit ratio. Given her sedation, we will reduce Ativan to 0.5 mg once a day for 3 days, then stop it. Wellbutrin has been added and Depakote is therapeutic. Liver enzymes appear to be stabilizing. Assessment: Vital Signs/I&O: Vital Signs Date Time Temp Pulse Resp B/P (MAP) Pulse Ox O2 Delivery O2 Flow Rate FiO2 02/07/22 06:11 97.4 89 20 144/77 (99) 97 Room Air I & O 02/06/22 02/06/22 02/07/22 15:00 23:00 07:00 Intake Total 240 ml 480 ml 300 ml Output Total 1050 ml Balance 240 ml 480 ml -750 ml Labs: Laboratory Tests Test 02/06/22 19:16 02/07/22 05:59 02/07/22 07:36 Glucose (Fingerstick) 176 mg/dL (70-99) H 86 mg/dL (70-99) White Blood Count 4.9 x10^3/uL (4.0-11.0) Red Blood Count 3.86 x10^6/uL (3.50-5.40) Hemoglobin 11.5 g/dL (12.0-15.5) L Hematocrit 34.8 % (36.0-47.0) L Mean Corpuscular Volume 90 fL (79-100) Mean Corpuscular Hemoglobin 30 pg (25-35) Mean Corpuscular Hemoglobin Concent 33 g/dL (31-37) Red Cell Distribution Width 13.8 % (11.5-14.5) Platelet Count 190 x10^3/uL (140-400) Neutrophils (%) (Auto) 56 % (31-73) Lymphocytes (%) (Auto) 34 % (24-48) Monocytes (%) (Auto) 10 % (0-9) H Eosinophils (%) (Auto) 0 % (0-3) Basophils (%) (Auto) 1 % (0-3) Neutrophils # (Auto) 2.7 x10^3uL (1.8-7.7) Lymphocytes # (Auto) 1.6 x10^3/uL (1.0-4.8) Monocytes # (Auto) 0.5 x10^3/uL (0.0-1.1) Eosinophils # (Auto) 0.0 x10^3/uL (0.0-0.7) Basophils # (Auto) 0.0 x10^3/uL (0.0-0.2) Sodium Level 142 mmol/L (136-145) Potassium Level 3.7 mmol/L (3.5-5.1) Chloride Level 106 mmol/L (98-107) Carbon Dioxide Level 29 mmol/L (21-32) Anion Gap 7 (6-14) Blood Urea Nitrogen 22 mg/dL (7-20) H Creatinine 0.9 mg/dL (0.6-1.0) Estimated GFR (Cockcroft-Gault) 61.7 BUN/Creatinine Ratio 24 (6-20) H Glucose Level 76 mg/dL (70-99) Calcium Level 8.8 mg/dL (8.5-10.1) Total Bilirubin 0.3 mg/dL (0.2-1.0) Aspartate Amino Transferase (AST) 36 U/L (15-37) Alanine Aminotransferase (ALT) 48 U/L (14-59) Alkaline Phosphatase 70 U/L (46-116) Ammonia 18 mcmol/L (11-34) Total Protein 5.8 g/dL (6.4-8.2) L Albumin 2.8 g/dL (3.4-5.0) L Albumin/Globulin Ratio 0.9 (1.0-1.7) L Valproic Acid Level 63 mcg/mL (50-100) Valproic Acid Last Dose Date 02/06/22 Valproic Acid Last Dose Time 2100 Current Medications: Meds: Current Medications Medications (Trade) Dose Ordered Sig/Jhony Route PRN Reason Start Time Stop Time Status Last Admin Dose Admin Bupropion HCl (Wellbutrin Xl) 150 mg DAILY PO 02/06/22 09:00 02/06/22 08:37 Nystatin (Nystop) 1 izzy BID TP 02/06/22 09:00 02/06/22 20:56 Lorazepam (Ativan) 0.5 mg QHS PO 02/06/22 21:00 02/08/22 23:50 02/06/22 20:55 I have reviewed the current psychotropics carefully including drug interactions. Risk benefit ratio favors no change other than as noted in my dictated progress note. Diagnosis: Problems: (1) Schizophrenia, chronic with acute exacerbation (2) Impulse control disorder, unspecified (3) Anxiety disorder, unspecified (4) Bipolar disorder, current episode mixed, severe, with psychotic features (5) Mild cognitive impairment PHI GLASER MD February 07, 2022 08:51
[2022-02-07] MEDS: ACYCLOVIR 200 MG CAPSULE PO SCH ×2 (12:26→20:05)
[2022-02-07] MEDS: MULTIVITAMIN with MINERAL TABLET. PO SCH (12:26)
[2022-02-07] MEDS: buPROPion XL 150 MG TAB.ER.24H PO SCH (12:26)
[2022-02-07] MEDS: LURASIDONE 40 MG TABLET. PO SCH (12:26)
[2022-02-07] MEDS: LACTOBACILLUS RHAMNOSUS GG 1 CAPSULE. PO SCH (12:26)
[2022-02-07] MEDS: CHOLECALCIFEROL (VITAMIN D3) 1,000 UNIT TABLET PO SCH (12:26)
[2022-02-07] MEDS: CYANOCOBALAMIN (VITAMIN B-12) 1,000 MCG TABLET. PO SCH (12:26)
[2022-02-07] MEDS: POLYETHYLENE GLYCOL 3350 17 GM PACKET. PO SCH (12:27)
[2022-02-07] MEDS: POLYMYXIN/TRIMETHOPRIM OPHTH SOLUTION 10ML BOTTLE. OD SCH ×4 (12:27→20:03)
[2022-02-07] MEDS: ASPIRIN ENTERIC COATED 81 MG TABLET.DR. PO SCH (12:27)
[2022-02-07] MEDS: GLIMEPIRIDE 2 MG TABLET PO SCH (12:27)
[2022-02-07] MEDS: OLANZapine 7.5 MG TABLET PO SCH ×2 (12:27→20:04)
[2022-02-07] MEDS: metFORMIN 500 MG TABLET PO SCH ×2 (12:27→17:23)
[2022-02-07] MEDS: POLYVINYL ALCOHOL/POVIDONE/PF OPHTH SOLUTION DROPERETTE. OU SCH ×2 (12:27→20:05)
[2022-02-07] MEDS: NYSTATIN TOPICAL POWDER 15GM BOTTLE. TP SCH ×2 (12:28→20:04)
[2022-02-07 16:49] VITALS: BP 151/82
[2022-02-07 18:56] LABS: CLARITY,URINE HAZY; COLOR,URINE YELLOW
[2022-02-07 18:57] LABS: BACTERIA,URINE FEW /HPF (0-FEW); GLUCOSE,URINE NEG (NEG); NITRITE,URINE NEG (NEG); SQUAMOUS EPITHELIAL CELL,UR OCC /LPF; UROBILINOGEN,URINE 0.2 mg/dL (0.2 mg/dL)
[2022-02-07] MEDS: LORazepam 0.5 MG TABLET PO SCH (20:04)
[2022-02-07] MEDS: DIVALPROEX ER 250 MG TAB.ER.24H. PO SCH (20:04)
[2022-02-07] MEDS: NITROFURANTOIN MONOHYD/M-CRYST 100 MG CAPSULE. PO SCH (20:04)
[2022-02-07] MEDS: MELATONIN 3 MG TABLET PO SCH (20:04)
[2022-02-07] MEDS: traZODone 50 MG TABLET. PO SCH (20:05)
[2022-02-07] MEDS: ACETAMINOPHEN 500 MG TABLET PO PRN (20:14)
[2022-02-07] MEDS: INSULIN GLARGINE SYRINGE. SQ SCH (21:13)
--- NOTE | 2022-02-07 21:56 | PDOC ---
Exam Note: Zay Note: Please also refer to the separate dictated note~for this date of service dictated separately.~Patient seen individually. Discussed the patient with Nursing staff reviewed the chart.~Reviewed interim history and current functioning. Reviewed vital signs,~Labs/ Radiology~and current medications noted below. Continue current treatment with the changes noted in the dictated addendum note Assessment: Vital Signs/I&O: Vital Signs Date Time Temp Pulse Resp B/P (MAP) Pulse Ox O2 Delivery O2 Flow Rate FiO2 02/07/22 16:49 98.3 100 20 151/82 (105) 96 02/07/22 06:11 Room Air I & O 02/06/22 02/06/22 02/07/22 15:00 23:00 07:00 Intake Total 240 ml 480 ml 300 ml Output Total 1050 ml Balance 240 ml 480 ml -750 ml Labs: Laboratory Tests Test 02/07/22 05:59 02/07/22 07:36 02/07/22 18:25 02/07/22 19:14 White Blood Count 4.9 x10^3/uL (4.0-11.0) Red Blood Count 3.86 x10^6/uL (3.50-5.40) Hemoglobin 11.5 g/dL (12.0-15.5) L Hematocrit 34.8 % (36.0-47.0) L Mean Corpuscular Volume 90 fL (79-100) Mean Corpuscular Hemoglobin 30 pg (25-35) Mean Corpuscular Hemoglobin Concent 33 g/dL (31-37) Red Cell Distribution Width 13.8 % (11.5-14.5) Platelet Count 190 x10^3/uL (140-400) Neutrophils (%) (Auto) 56 % (31-73) Lymphocytes (%) (Auto) 34 % (24-48) Monocytes (%) (Auto) 10 % (0-9) H Eosinophils (%) (Auto) 0 % (0-3) Basophils (%) (Auto) 1 % (0-3) Neutrophils # (Auto) 2.7 x10^3uL (1.8-7.7) Lymphocytes # (Auto) 1.6 x10^3/uL (1.0-4.8) Monocytes # (Auto) 0.5 x10^3/uL (0.0-1.1) Eosinophils # (Auto) 0.0 x10^3/uL (0.0-0.7) Basophils # (Auto) 0.0 x10^3/uL (0.0-0.2) Sodium Level 142 mmol/L (136-145) Potassium Level 3.7 mmol/L (3.5-5.1) Chloride Level 106 mmol/L (98-107) Carbon Dioxide Level 29 mmol/L (21-32) Anion Gap 7 (6-14) Blood Urea Nitrogen 22 mg/dL (7-20) H Creatinine 0.9 mg/dL (0.6-1.0) Estimated GFR (Cockcroft-Gault) 61.7 BUN/Creatinine Ratio 24 (6-20) H Glucose Level 76 mg/dL (70-99) Calcium Level 8.8 mg/dL (8.5-10.1) Total Bilirubin 0.3 mg/dL (0.2-1.0) Aspartate Amino Transferase (AST) 36 U/L (15-37) Alanine Aminotransferase (ALT) 48 U/L (14-59) Alkaline Phosphatase 70 U/L (46-116) Ammonia 18 mcmol/L (11-34) Total Protein 5.8 g/dL (6.4-8.2) L Albumin 2.8 g/dL (3.4-5.0) L Albumin/Globulin Ratio 0.9 (1.0-1.7) L Valproic Acid Level 63 mcg/mL (50-100) Valproic Acid Last Dose Date 02/06/22 Valproic Acid Last Dose Time 2100 Glucose (Fingerstick) 86 mg/dL (70-99) 168 mg/dL (70-99) H Urine Collection Type U cath Urine Color Yellow Urine Clarity Hazy Urine pH 6.0 Urine Specific [place] 1.025 Urine Protein Neg (NEG-TRACE) Urine Glucose (UA) Neg mg/dL (NEG) Urine Ketones (Stick) 15 mg/dL (NEG) Urine Blood Small (NEG) Urine Nitrite Neg (NEG) Urine Bilirubin Neg (NEG) Urine Urobilinogen Dipstick 0.2 mg/dL (0.2 mg/dL) Urine Leukocyte Esterase Trace (NEG) Urine RBC 6-10 /HPF (0-2) Urine WBC 5-10 /HPF (0-4) Urine Squamous Epithelial Cells Occ /LPF Urine Bacteria Few /HPF (0-FEW) Current Medications: Meds: Laboratory Tests Test 02/07/22 05:59 02/07/22 07:36 02/07/22 18:25 02/07/22 19:14 White Blood Count 4.9 x10^3/uL Red Blood Count 3.86 x10^6/uL Hemoglobin 11.5 g/dL Hematocrit 34.8 % Mean Corpuscular Volume 90 fL Mean Corpuscular Hemoglobin 30 pg Mean Corpuscular Hemoglobin Concent 33 g/dL Red Cell Distribution Width 13.8 % Platelet Count 190 x10^3/uL Neutrophils (%) (Auto) 56 % Lymphocytes (%) (Auto) 34 % Monocytes (%) (Auto) 10 % Eosinophils (%) (Auto) 0 % Basophils (%) (Auto) 1 % Neutrophils # (Auto) 2.7 x10^3uL Lymphocytes # (Auto) 1.6 x10^3/uL Monocytes # (Auto) 0.5 x10^3/uL Eosinophils # (Auto) 0.0 x10^3/uL Basophils # (Auto) 0.0 x10^3/uL Sodium Level 142 mmol/L Potassium Level 3.7 mmol/L Chloride Level 106 mmol/L Carbon Dioxide Level 29 mmol/L Anion Gap 7 Blood Urea Nitrogen 22 mg/dL Creatinine 0.9 mg/dL Estimated GFR (Cockcroft-Gault) 61.7 BUN/Creatinine Ratio 24 Glucose Level 76 mg/dL Calcium Level 8.8 mg/dL Total Bilirubin 0.3 mg/dL Aspartate Amino Transf (AST/SGOT) 36 U/L Alanine Aminotransferase (ALT/SGPT) 48 U/L Alkaline Phosphatase 70 U/L Ammonia 18 mcmol/L Total Protein 5.8 g/dL Albumin 2.8 g/dL Albumin/Globulin Ratio 0.9 Valproic Acid (Depakene) Level 63 mcg/mL Valproic Acid Last Dose Date 02/06/22 Valproic Acid Last Dose Time 2100 Glucose (Fingerstick) 86 mg/dL 168 mg/dL Urine Collection Type U cath Urine Color Yellow Urine Clarity Hazy Urine pH 6.0 Urine Specific [place] 1.025 Urine Protein Neg Urine Glucose (UA) Neg mg/dL Urine Ketones (Stick) 15 mg/dL Urine Blood Small Urine Nitrite Neg Urine Bilirubin Neg Urine Urobilinogen Dipstick 0.2 mg/dL Urine Leukocyte Esterase Trace Urine RBC 6-10 /HPF Urine WBC 5-10 /HPF Urine Squamous Epithelial Cells Occ /LPF Urine Bacteria Few /HPF Current Medications Medications (Trade) Dose Ordered Sig/Jhony Route PRN Reason Start Time Stop Time Status Last Admin Dose Admin Potassium Chloride (Klor-Con) 40 meq 1X ONCE PO 01/29/22 21:30 01/29/22 21:43 DC 01/29/22 21:32 Acetaminophen (Tylenol) 650 mg PRN Q6HRS PRN PO MILD PAIN / TEMP > 100.3'F 01/29/22 22:00 01/29/22 22:57 DC Multi-Ingredient Ointment (Analgesic [place]) 1 izzy PRN QID PRN TP MUSCLE PAIN 01/29/22 22:00 Al Hydroxide/Mg Hydroxide (Mylanta Plus Xs) 15 ml PRN AFTMEALHC PRN PO DYSPEPSIA 01/29/22 22:00 Magnesium Hydroxide (Milk Of Magnesia) 2,400 mg PRN QHS PRN PO 1ST CHOICE CONSTIPATION 01/29/22 22:00 02/05/22 23:46 Acetaminophen (Tylenol) 500 mg PRN Q4HRS PRN PO PAIN 01/29/22 22:15 02/07/22 20:14 Aspirin (Aspirin Enteric Coated) 81 mg DAILY PO 01/30/22 09:00 02/07/22 12:27 Bisacodyl (Dulcolax Supp) 10 mg PRN DAILY PRN RC 2ND CHOICE CONSTIPATION 01/29/22 22:15 Vitamin D (Vitamin D3) 2,000 unit DAILY PO 01/30/22 09:00 02/07/22 12:26 Glucose (Insta-Glucose) 15 gm PRN Q15MIN PRN PO low blood sugar 01/29/22 22:15 Divalproex Sodium (Depakote) 125 mg TID PO 01/29/22 23:00 01/30/22 16:59 DC 01/30/22 13:59 Glimepiride (Amaryl) 2 mg DAILY PO 01/30/22 09:00 02/07/22 12:27 Haloperidol (Haldol) 2.5 mg BID PO 01/29/22 23:00 02/02/22 17:12 DC 02/02/22 08:13 Levothyroxine Sodium (Synthroid) 50 mcg DAILY06 PO 01/30/22 06:00 02/07/22 05:14 Lorazepam (Ativan) 1 mg TID PO 01/29/22 23:00 01/30/22 16:59 DC 01/30/22 13:58 Melatonin (Melatonin) 6 mg QHS PO 01/29/22 23:00 02/07/22 20:04 Metformin HCl (Glucophage) 1,000 mg BIDWMEALS PO 01/30/22 08:00 02/07/22 17:23 Olanzapine (ZyPREXA) 10 mg BID PO 01/29/22 23:00 02/05/22 17:08 DC 02/05/22 08:11 Polyethylene Glycol (miraLAX) 17 gm DAILY PO 01/30/22 09:00 02/06/22 08:38 Saliva Substitute (Biotene Moisturizing Mouth) 1 spray PRN Q4HRS PRN MM DRY MOUTH 01/29/22 22:15 Senna/Docusate Sodium (Senna Plus) 1 tab BID PO 01/29/22 23:00 01/30/22 20:52 DC 01/29/22 23:42 Trazodone HCl (Desyrel) 50 mg PRN QHS PRN PO INSOMNIA 01/29/22 22:15 Trazodone HCl (Desyrel) 50 mg QHS PO 01/29/22 23:00 02/07/22 20:05 Acyclovir (Zovirax) 400 mg BID PO 01/29/22 23:00 02/07/22 20:05 Non-Formulary Medication (Biotin ) 5 mg DAILY PO 01/30/22 09:00 01/29/22 23:06 DC Artificial Tears (Refresh Classic) 1 drop BID OU 01/29/22 23:00 02/07/22 20:05 Cyanocobalamin (Vitamin B-12) 1,000 mcg DAILY PO 01/30/22 09:00 02/07/22 12:26 Glucagon (Glucagen Kit) 1 mg PRN DAILY PRN IM BS<60 and unresponsive or NPO 01/29/22 23:15 Insulin Glargine (Lantus Syringe) 30 unit QHS SQ 01/29/22 23:00 02/07/22 21:13 Lactobacillus Rhamnosus (Culturelle) 1 cap DAILY PO 01/30/22 09:00 02/07/22 12:26 Lurasidone HCl (Latuda) 80 mg DAILY PO 01/30/22 09:00 02/07/22 12:26 Multivitamins/ Calcium (Thera-M Plus) 1 tab DAILY PO 01/30/22 09:00 02/07/22 12:26 Nitrofurantoin Macrocrystals (Macrobid) 100 mg QHS PO 01/30/22 21:00 02/07/22 20:04 Lorazepam (Ativan) 0.5 mg BID PO 01/31/22 09:00 02/06/22 17:01 DC 02/06/22 08:37 Lorazepam (Ativan) 1 mg PRN QHS PRN PO ANXIETY / AGITATION 01/30/22 17:00 Divalproex Sodium (Depakote Er) 750 mg QHS PO 01/30/22 21:00 02/07/22 20:04 Senna/Docusate Sodium (Senna Plus) 1 tab PRN BID PRN PO CONSTIPATION 01/30/22 21:00 02/07/22 05:57 Polymyxin/ Trimethoprim Sulfate (Polytrim) 1 drop QID OU 01/30/22 21:00 01/30/22 23:42 DC 01/30/22 21:00 Polymyxin/ Trimethoprim Sulfate (Polytrim) 1 drop QID OD 01/31/22 09:00 02/10/22 08:59 02/07/22 20:03 Potassium Chloride (Klor-Con) 20 meq STK-MED ONCE PO 01/29/22 21:30 02/01/22 09:35 DC Haloperidol (Haldol) 2.5 mg DAILY PO 02/03/22 09:00 02/05/22 17:08 DC 02/05/22 08:11 Olanzapine (ZyPREXA) 7.5 mg BID PO 02/05/22 21:00 02/07/22 20:04 Bupropion HCl (Wellbutrin Xl) 150 mg DAILY PO 02/06/22 09:00 02/10/22 23:50 02/07/22 12:26 Nystatin (Nystop) 1 izzy BID TP 02/06/22 09:00 02/07/22 20:04 Lorazepam (Ativan) 0.5 mg QHS PO 02/06/22 21:00 02/08/22 23:50 02/07/22 20:04 Bupropion HCl (Wellbutrin Xl) 300 mg DAILY PO 02/11/22 09:00 I have reviewed the current psychotropics carefully including drug interactions. Risk benefit ratio favors no change other than as noted in my dictated progress note. Diagnosis: Problems: (1) Schizophrenia, chronic with acute exacerbation (2) Impulse control disorder, unspecified (3) Anxiety disorder, unspecified (4) Bipolar disorder, current episode mixed, severe, with psychotic features (5) Mild cognitive impairment PHI GLASER MD February 07, 2022 21:56
[2022-02-08] MEDS: POLYETHYLENE GLYCOL 3350 17 GM PACKET. PO SCH (04:36)
[2022-02-08] MEDS: LEVOTHYROXINE 50 MCG TABLET PO SCH (06:18)
[2022-02-08 06:21] VITALS: BP 128/72
--- NOTE | 2022-02-08 08:33 | PDOC ---
Exam Note: Zay Note: This note is a late entry for 02/07/2022 covers elements not covered in my initial note. Subjective: The patient was seen individually on 02/07/2022, discussed and reviewed the chart with Guero CABRERA. There has been Covid exposure on the unit and the unit has been placed on quarantine as determined by Infectious Disease Department. The patient slept 7 hours previous night. She has been in bed, part of the day was asleep. At 11.30 she was more awake and incontinent of bowel. She did have urinary retention. Previous night bladder scan was done and 1 L urine was removed. She has been more awake today. We will repeat UA to rule out UTI. AST and ALT are unremarkable. Valproic acid level is therapeutic at 63. Review of Systems: Ambulation impaired in wheelchair. Hard of hearing. No CV, , pulmonary, eye system symptoms on review. Mental Status Exam: Patient is oriented to herself and situation. I met with her in the dining room and she was seated at the dining table. Poor eye contact trying to feed herself. Speech coherent. Often response is monosyllabic. Abstraction fair. Computation impaired. Language function intact. Mood and affect withdrawn. Laboratory Data: Reviewed. Impression: Schizoaffective disorder, bipolar type, depressed. Anxiety disorder unspecified. Impulse control disorder unspecified. Plan: Continue current psychotropics mentioned in my initial note. Reviewed drug interactions, risk-benefit ratio. Increase Wellbutrin XL from 150 mg a day to 300 mg a day after she has been on 150 mg for 5 days. 02/07/2022 Miky Mckenzie This note is a late entry for 02/07/2022 covers elements not covered in my initial note. Subjective: The patient was seen individually on 02/07/2022, discussed and reviewed the chart with Herlinda CABRERA. There has been Covid exposure on the unit and the unit has been placed on quarantine as determined by Infectious Disease Department. The patient slept 7-3/4 hours previous night. Overall he has done better, pleasant. I met with him in the dining room and then in his room. He remains cooperative, no aggression, obsessing about discharge, states he has not seen the doctor since Saturday. I have been in fact seeing him every day Review of Systems: Ambulation impaired, in wheelchair. Hard of hearing. No CV, , pulmonary, eye system symptoms on review. Mental Status Exam: Patient is oriented to himself and situation. Speech is rapid. Abstraction fair. Computation impaired. Language function intact. Mood and affect improved. He seems to have some short-term memory deficits. Laboratory Data: Reviewed. Impression: Major depressive disorder. Impulse control disorder rule out bipolar disorder unspecified. Plan: Continue current psychotropics mentioned in my initial note. Adjust as clinically indicated. 02/07/2022 Sudeep Jang This note is a late entry for 02/07/2022 covers elements not covered in my initial note. Subjective: The patient was seen individually on 02/07/2022, discussed and reviewed the chart with Herlinda CABRERA. There has been Covid exposure on the unit and the unit has been placed on quarantine as determined by Infectious Disease Department. The patient slept 7-1/2 hours previous night. He remains confused. I met with him in the dining room. Review of Systems: No CV, , pulmonary, eye, ENT system symptoms on review. Mental Status Exam: Patient is oriented to himself. He is pleasant, cooperative, not agitated or aggressive. Insight and judgment, recent and remote memory, attention and concentration, fund of knowledge is poor consistent with his diagnoses. Laboratory Data: Reviewed. Impression: Major neurocognitive disorder, Alzheimer, vascular with delusion, depression, behavioral disturbance. Anxiety disorder unspecified. Impulse control disorder unspecified. Plan: Continue current psychotropics unchanged. Reviewed drug interactions, risk-benefit ratio. Adjust as clinically indicated. Assessment: Vital Signs/I&O: Vital Signs Date Time Temp Pulse Resp B/P (MAP) Pulse Ox O2 Delivery O2 Flow Rate FiO2 02/08/22 06:21 97.0 83 16 128/72 (90) 94 02/07/22 06:11 Room Air I & O 02/07/22 02/07/22 02/08/22 15:00 23:00 07:00 Intake Total 240 ml 480 ml Balance 240 ml 480 ml Labs: Laboratory Tests Test 02/07/22 18:25 02/07/22 19:14 02/08/22 07:46 Urine Collection Type U cath Urine Color Yellow Urine Clarity Hazy Urine pH 6.0 Urine Specific [place] 1.025 Urine Protein Neg (NEG-TRACE) Urine Glucose (UA) Neg mg/dL (NEG) Urine Ketones (Stick) 15 mg/dL (NEG) Urine Blood Small (NEG) Urine Nitrite Neg (NEG) Urine Bilirubin Neg (NEG) Urine Urobilinogen Dipstick 0.2 mg/dL (0.2 mg/dL) Urine Leukocyte Esterase Trace (NEG) Urine RBC 6-10 /HPF (0-2) Urine WBC 5-10 /HPF (0-4) Urine Squamous Epithelial Cells Occ /LPF Urine Bacteria Few /HPF (0-FEW) Glucose (Fingerstick) 168 mg/dL (70-99) H 87 mg/dL (70-99) Current Medications: I have reviewed the current psychotropics carefully including drug interactions. Risk benefit ratio favors no change other than as noted in my dictated progress note. Diagnosis: Problems: (1) Schizophrenia, chronic with acute exacerbation (2) Impulse control disorder, unspecified (3) Anxiety disorder, unspecified (4) Bipolar disorder, current episode mixed, severe, with psychotic features (5) Mild cognitive impairment PHI GLASER MD February 08, 2022 08:33
[2022-02-08] MEDS: LURASIDONE 40 MG TABLET. PO SCH (08:46)
[2022-02-08] MEDS: ACYCLOVIR 200 MG CAPSULE PO SCH ×2 (08:46→21:38)
[2022-02-08] MEDS: POLYVINYL ALCOHOL/POVIDONE/PF OPHTH SOLUTION DROPERETTE. OU SCH ×2 (08:47→21:31)
[2022-02-08] MEDS: metFORMIN 500 MG TABLET PO SCH ×2 (08:47→17:00)
[2022-02-08] MEDS: buPROPion XL 150 MG TAB.ER.24H PO SCH (08:47)
[2022-02-08] MEDS: CHOLECALCIFEROL (VITAMIN D3) 1,000 UNIT TABLET PO SCH (08:47)
[2022-02-08] MEDS: ASPIRIN ENTERIC COATED 81 MG TABLET.DR. PO SCH (08:47)
[2022-02-08] MEDS: GLIMEPIRIDE 2 MG TABLET PO SCH (08:47)
[2022-02-08] MEDS: CYANOCOBALAMIN (VITAMIN B-12) 1,000 MCG TABLET. PO SCH (08:47)
[2022-02-08] MEDS: OLANZapine 7.5 MG TABLET PO SCH (08:47)
[2022-02-08] MEDS: MULTIVITAMIN with MINERAL TABLET. PO SCH (08:47)
[2022-02-08] MEDS: LACTOBACILLUS RHAMNOSUS GG 1 CAPSULE. PO SCH (08:47)
[2022-02-08] MEDS: POLYMYXIN/TRIMETHOPRIM OPHTH SOLUTION 10ML BOTTLE. OD SCH ×4 (08:47→21:31)
[2022-02-08] MEDS: NYSTATIN TOPICAL POWDER 15GM BOTTLE. TP SCH ×2 (08:47→21:31)
[2022-02-08] MEDS: DEXTROSE ORAL GEL 15 GM TUBE. PO PRN ×2 (16:38→17:05)
[2022-02-08 16:45] VITALS: BP 164/79
[2022-02-08] MEDS ORDERED: INSULIN GLARGINE SYRINGE. SQ SCH (17:00)
[2022-02-08] MEDS: IV DEXTROSE 10% 1,000 ML IV SCH (18:00)
--- NOTE | 2022-02-08 20:41 | RAD ---
EXAM: CT Head without IV contrast CLINICAL HISTORY: Altered mental status COMPARISON: 03/21/2018 TECHNIQUE: Routine CT of the head without contrast. PQRS compliance statement - One or more of the following individualized dose reduction techniques wer e utilized for this study: 1. Automated exposure control 2. Adjustment of the mA and/or kV according to patient size 3. Use of iterative reconstruction technique FINDINGS: There is no evidence of hemorrhage, mass or extra-axial fluid collection. [place]-white differentiation is maintained with no evidence of edema. There is no mass effect or shift of the intracranial structures. The ventricles, basilar cisterns and cortical sulci are normal in size and configuration for the barron ents stated age. The cerebellum and brainstem are unremarkable. The calvarium demonstrates no evidence of fracture or focal lesion. Changes of hyperostosis frontalis interna. There is normal aeration of the visualized paranasal sinuses and mastoid air cells. The visualized portions of the orbits are normal. IMPRESSION: 1. No evidence for acute intracranial process. Electronically signed by: Seb Gavin MD (02/08/2022 8:39 PM) WILLAM
--- NOTE | 2022-02-08 21:05 | PDOC ---
Exam Note: Zay Note: Please also refer to the separate dictated note~for this date of service dictated separately.~Patient seen individually. Discussed the patient with Nursing staff reviewed the chart.~Reviewed interim history and current functioning. Reviewed vital signs,~Labs/ Radiology~and current medications noted below. Continue current treatment with the changes noted in the dictated addendum note Assessment: Vital Signs/I&O: Vital Signs Date Time Temp Pulse Resp B/P (MAP) Pulse Ox O2 Delivery O2 Flow Rate FiO2 02/08/22 16:45 97.2 74 16 164/79 (107) 94 02/07/22 06:11 Room Air I & O 02/07/22 02/07/22 02/08/22 15:00 23:00 07:00 Intake Total 240 ml 480 ml Balance 240 ml 480 ml Labs: Laboratory Tests Test 02/08/22 07:46 02/08/22 16:08 02/08/22 16:36 02/08/22 17:02 Glucose (Fingerstick) 87 mg/dL (70-99) 59 mg/dL (70-99) L 61 mg/dL (70-99) L 47 mg/dL (70-99) L Test 02/08/22 18:26 02/08/22 19:29 Glucose (Fingerstick) 106 mg/dL (70-99) H 117 mg/dL (70-99) H Current Medications: Meds: Laboratory Tests Test 02/08/22 07:46 02/08/22 16:08 02/08/22 16:36 02/08/22 17:02 Glucose (Fingerstick) 87 mg/dL 59 mg/dL 61 mg/dL 47 mg/dL Test 02/08/22 18:26 02/08/22 19:29 Glucose (Fingerstick) 106 mg/dL 117 mg/dL Current Medications Medications (Trade) Dose Ordered Sig/Jhony Route PRN Reason Start Time Stop Time Status Last Admin Dose Admin Potassium Chloride (Klor-Con) 40 meq 1X ONCE PO 01/29/22 21:30 01/29/22 21:43 DC 01/29/22 21:32 Acetaminophen (Tylenol) 650 mg PRN Q6HRS PRN PO MILD PAIN / TEMP > 100.3'F 01/29/22 22:00 01/29/22 22:57 DC Multi-Ingredient Ointment (Analgesic [place]) 1 izzy PRN QID PRN TP MUSCLE PAIN 01/29/22 22:00 Al Hydroxide/Mg Hydroxide (Mylanta Plus Xs) 15 ml PRN AFTMEALHC PRN PO DYSPEPSIA 01/29/22 22:00 Magnesium Hydroxide (Milk Of Magnesia) 2,400 mg PRN QHS PRN PO 1ST CHOICE CONSTIPATION 01/29/22 22:00 02/05/22 23:46 Acetaminophen (Tylenol) 500 mg PRN Q4HRS PRN PO PAIN 01/29/22 22:15 02/07/22 20:14 Aspirin (Aspirin Enteric Coated) 81 mg DAILY PO 01/30/22 09:00 02/08/22 08:47 Bisacodyl (Dulcolax Supp) 10 mg PRN DAILY PRN RC 2ND CHOICE CONSTIPATION 01/29/22 22:15 Vitamin D (Vitamin D3) 2,000 unit DAILY PO 01/30/22 09:00 02/08/22 08:47 Glucose (Insta-Glucose) 15 gm PRN Q15MIN PRN PO low blood sugar 01/29/22 22:15 02/08/22 17:05 Divalproex Sodium (Depakote) 125 mg TID PO 01/29/22 23:00 01/30/22 16:59 DC 01/30/22 13:59 Glimepiride (Amaryl) 2 mg DAILY PO 01/30/22 09:00 02/08/22 16:59 DC 02/08/22 08:47 Haloperidol (Haldol) 2.5 mg BID PO 01/29/22 23:00 02/02/22 17:12 DC 02/02/22 08:13 Levothyroxine Sodium (Synthroid) 50 mcg DAILY06 PO 01/30/22 06:00 02/08/22 06:18 Lorazepam (Ativan) 1 mg TID PO 01/29/22 23:00 01/30/22 16:59 DC 01/30/22 13:58 Melatonin (Melatonin) 6 mg QHS PO 01/29/22 23:00 02/07/22 20:04 Metformin HCl (Glucophage) 1,000 mg BIDWMEALS PO 01/30/22 08:00 02/08/22 16:59 DC 02/08/22 08:47 Olanzapine (ZyPREXA) 10 mg BID PO 01/29/22 23:00 02/05/22 17:08 DC 02/05/22 08:11 Polyethylene Glycol (miraLAX) 17 gm DAILY PO 01/30/22 09:00 02/06/22 08:38 Saliva Substitute (Biotene Moisturizing Mouth) 1 spray PRN Q4HRS PRN MM DRY MOUTH 01/29/22 22:15 Senna/Docusate Sodium (Senna Plus) 1 tab BID PO 01/29/22 23:00 01/30/22 20:52 DC 01/29/22 23:42 Trazodone HCl (Desyrel) 50 mg PRN QHS PRN PO INSOMNIA 01/29/22 22:15 Trazodone HCl (Desyrel) 50 mg QHS PO 01/29/22 23:00 02/07/22 20:05 Acyclovir (Zovirax) 400 mg BID PO 01/29/22 23:00 02/08/22 08:46 Non-Formulary Medication (Biotin ) 5 mg DAILY PO 01/30/22 09:00 01/29/22 23:06 DC Artificial Tears (Refresh Classic) 1 drop BID OU 01/29/22 23:00 02/08/22 08:47 Cyanocobalamin (Vitamin B-12) 1,000 mcg DAILY PO 01/30/22 09:00 02/08/22 08:47 Glucagon (Glucagen Kit) 1 mg PRN DAILY PRN IM BS<60 and unresponsive or NPO 01/29/22 23:15 Insulin Glargine (Lantus Syringe) 30 unit QHS SQ 01/29/22 23:00 02/08/22 16:59 DC 02/07/22 21:13 Lactobacillus Rhamnosus (Culturelle) 1 cap DAILY PO 01/30/22 09:00 02/08/22 08:47 Lurasidone HCl (Latuda) 80 mg DAILY PO 01/30/22 09:00 02/08/22 08:46 Multivitamins/ Calcium (Thera-M Plus) 1 tab DAILY PO 01/30/22 09:00 02/08/22 08:47 Nitrofurantoin Macrocrystals (Macrobid) 100 mg QHS PO 01/30/22 21:00 02/07/22 20:04 Lorazepam (Ativan) 0.5 mg BID PO 01/31/22 09:00 02/06/22 17:01 DC 02/06/22 08:37 Lorazepam (Ativan) 1 mg PRN QHS PRN PO ANXIETY / AGITATION 01/30/22 17:00 Divalproex Sodium (Depakote Er) 750 mg QHS PO 01/30/22 21:00 02/07/22 20:04 Senna/Docusate Sodium (Senna Plus) 1 tab PRN BID PRN PO CONSTIPATION 01/30/22 21:00 02/07/22 05:57 Polymyxin/ Trimethoprim Sulfate (Polytrim) 1 drop QID OU 01/30/22 21:00 01/30/22 23:42 DC 01/30/22 21:00 Polymyxin/ Trimethoprim Sulfate (Polytrim) 1 drop QID OD 01/31/22 09:00 02/10/22 08:59 02/08/22 17:05 Potassium Chloride (Klor-Con) 20 meq STK-MED ONCE PO 01/29/22 21:30 02/01/22 09:35 DC Haloperidol (Haldol) 2.5 mg DAILY PO 02/03/22 09:00 02/05/22 17:08 DC 02/05/22 08:11 Olanzapine (ZyPREXA) 7.5 mg BID PO 02/05/22 21:00 02/08/22 11:36 DC 02/08/22 08:47 Bupropion HCl (Wellbutrin Xl) 150 mg DAILY PO 02/06/22 09:00 02/10/22 23:50 02/08/22 08:47 Nystatin (Nystop) 1 izzy BID TP 02/06/22 09:00 02/08/22 08:47 Lorazepam (Ativan) 0.5 mg QHS PO 02/06/22 21:00 02/08/22 23:50 02/07/22 20:04 Bupropion HCl (Wellbutrin Xl) 300 mg DAILY PO 02/11/22 09:00 Olanzapine (ZyPREXA) 5 mg BID PO 02/08/22 21:00 Insulin Glargine (Lantus Syringe) 10 unit QHS SQ 02/08/22 17:00 02/08/22 17:40 DC Metformin HCl (Glucophage) 500 mg BIDWMEALS PO 02/08/22 17:00 Dextrose 1,000 ml @ 20 mls/hr Q24H IV 02/08/22 17:30 02/08/22 18:00 Insulin Glargine (Lantus Syringe) 10 unit QHS SQ 02/08/22 21:00 Current Medications Medications (Trade) Dose Ordered Sig/Jhony Route PRN Reason Start Time Stop Time Status Last Admin Dose Admin Dextrose 1,000 ml @ 20 mls/hr Q24H IV 02/08/22 17:30 02/08/22 18:00 I have reviewed the current psychotropics carefully including drug interactions. Risk benefit ratio favors no change other than as noted in my dictated progress note. Diagnosis: Problems: (1) Impulse control disorder, unspecified (2) Anxiety disorder, unspecified (3) Bipolar disorder, current episode mixed, severe, with psychotic features (4) Mild cognitive impairment (5) Schizophrenia, catatonic, chronic with acute exacerbation PHI GLASER MD February 08, 2022 21:05
[2022-02-08] MEDS: traZODone 50 MG TABLET. PO SCH (21:37)
[2022-02-08] MEDS: NITROFURANTOIN MONOHYD/M-CRYST 100 MG CAPSULE. PO SCH (21:37)
[2022-02-08] MEDS: MELATONIN 3 MG TABLET PO SCH (21:37)
[2022-02-08] MEDS: LORazepam 0.5 MG TABLET PO SCH (21:37)
[2022-02-08] MEDS: DIVALPROEX ER 250 MG TAB.ER.24H. PO SCH (21:37)
[2022-02-08] MEDS: OLANZapine 5 MG TABLET PO SCH (21:38)
[2022-02-08] MEDS: INSULIN GLARGINE SYRINGE. SQ SCH (21:38)
[2022-02-09 01:49] VITALS: BP 151/81
[2022-02-09] MEDS: LEVOTHYROXINE 50 MCG TABLET PO SCH (05:04)
[2022-02-09 06:31] VITALS: BP 146/65
[2022-02-09] MEDS: POLYVINYL ALCOHOL/POVIDONE/PF OPHTH SOLUTION DROPERETTE. OU SCH ×2 (08:29→20:28)
[2022-02-09] MEDS: POLYMYXIN/TRIMETHOPRIM OPHTH SOLUTION 10ML BOTTLE. OU SCH ×4 (08:29→20:28)
[2022-02-09] MEDS: ASPIRIN ENTERIC COATED 81 MG TABLET.DR. PO SCH (08:29)
[2022-02-09] MEDS: metFORMIN 500 MG TABLET PO SCH ×2 (08:29→17:28)
[2022-02-09] MEDS: buPROPion XL 150 MG TAB.ER.24H PO SCH (08:29)
[2022-02-09] MEDS: ACYCLOVIR 200 MG CAPSULE PO SCH ×2 (08:30→20:28)
[2022-02-09] MEDS: LACTOBACILLUS RHAMNOSUS GG 1 CAPSULE. PO SCH (08:30)
[2022-02-09] MEDS: LURASIDONE 40 MG TABLET. PO SCH (08:30)
[2022-02-09] MEDS: MULTIVITAMIN with MINERAL TABLET. PO SCH (08:34)
[2022-02-09] MEDS: CYANOCOBALAMIN (VITAMIN B-12) 1,000 MCG TABLET. PO SCH (08:34)
[2022-02-09] MEDS: POLYETHYLENE GLYCOL 3350 17 GM PACKET. PO SCH (08:34)
[2022-02-09] MEDS: CHOLECALCIFEROL (VITAMIN D3) 1,000 UNIT TABLET PO SCH (08:34)
[2022-02-09] MEDS: NYSTATIN TOPICAL POWDER 15GM BOTTLE. TP SCH ×2 (08:35→20:29)
[2022-02-09] MEDS: OLANZapine 5 MG TABLET PO SCH ×2 (08:35→20:29)
[2022-02-09 16:26] VITALS: BP 171/79
[2022-02-09] MEDS ORDERED: MELATONIN 3 MG TABLET PO PRN (17:00)
[2022-02-09] MEDS ORDERED: traZODone 50 MG TABLET. PO PRN (17:00)
[2022-02-09] MEDS: IV DEXTROSE 10% 1,000 ML IV SCH (17:30)
[2022-02-09] MEDS: NITROFURANTOIN MONOHYD/M-CRYST 100 MG CAPSULE. PO SCH (20:27)
[2022-02-09] MEDS: DIVALPROEX ER 250 MG TAB.ER.24H. PO SCH (20:27)
[2022-02-09] MEDS: INSULIN GLARGINE SYRINGE. SQ SCH (20:29)
--- NOTE | 2022-02-09 21:47 | PDOC ---
Exam Note: Zay Note: This note is a late entry for 02/08/2022 covers elements not covered in my initial note. Subjective: The patient was reviewed at treatment team meeting individually in the morning on 02/08/2022 with Andria Baron, Callie Mcintyre, and Medina Figueroa (mental health social worker), and Liliana, activity therapy, and Keiko CABRERA, discussed and reviewed the chart. The patient slept 7-3/4 hours previous night. Appetite 75%. Average sleep 7 hours. She has been drowsy, withdrawn, appears more confused. She needed a straight catheter since she had 1 L retention. She attended 5 groups in the past one week. She is on antibiotic eye drops for her conjunctivitis. She knew the year was 2021 but did not know the month or day. Yesterday she was making statements that her mood has been crappy and life was the same as before, which was shit. Review of Systems: Ambulation impaired in wheelchair. Hard of hearing. No CV, , pulmonary, eye system symptoms on review. Positive for tiredness. Mental Status Exam: Patient is oriented to herself and situation. Poor eye contact. Speech coherent. Often response is monosyllabic. Abstraction fair. Computation impaired. Language function intact. Mood and affect withdrawn. Laboratory Data: Reviewed. Impression: Schizoaffective disorder, bipolar type, depressed. Anxiety disorder unspecified. Impulse control disorder unspecified. Plan: Continue current psychotropics mentioned in my initial note. Reviewed drug interactions, risk-benefit ratio. Dr. Chen was stabilizing her from medical standpoint and she is on IV fluids. We will check CT head to rule out CVA, given her intense withdrawal, apathy, inability to respond to questions. At the time of this dictation, CT head is clinically insignificant. EKG was unremarkable. Labs did show hypoglycemia and she remains on IV fluids. Reduce Zyprexa from 7.5 mg b.i.d. to 5 mg b.i.d., hold if sedated. Assessment: Vital Signs/I&O: Vital Signs Date Time Temp Pulse Resp B/P (MAP) Pulse Ox O2 Delivery O2 Flow Rate FiO2 02/09/22 16:26 97.3 78 18 171/79 (109) 92 02/09/22 06:31 Room Air I & O 02/08/22 02/08/22 02/09/22 14:59 22:59 06:59 Intake Total 240 ml 240 ml Output Total 950 ml Balance 240 ml -710 ml Labs: Laboratory Tests Test 02/08/22 22:35 02/08/22 23:27 02/09/22 00:29 02/09/22 01:42 Glucose (Fingerstick) 99 mg/dL (70-99) 75 mg/dL (70-99) 80 mg/dL (70-99) 78 mg/dL (70-99) Test 02/09/22 02:51 02/09/22 03:54 02/09/22 05:13 02/09/22 06:40 Glucose (Fingerstick) 90 mg/dL (70-99) 120 mg/dL (70-99) H 104 mg/dL (70-99) H 123 mg/dL (70-99) H Test 02/09/22 07:35 02/09/22 11:20 02/09/22 17:14 02/09/22 19:34 Glucose (Fingerstick) 126 mg/dL (70-99) H 259 mg/dL (70-99) H 103 mg/dL (70-99) H 174 mg/dL (70-99) H Current Medications: Meds: Current Medications Medications (Trade) Dose Ordered Sig/Jhony Route PRN Reason Start Time Stop Time Status Last Admin Dose Admin Polymyxin/ Trimethoprim Sulfate (Polytrim) 1 drop QID OU 02/09/22 09:00 02/19/22 08:59 02/09/22 20:28 I have reviewed the current psychotropics carefully including drug interactions. Risk benefit ratio favors no change other than as noted in my dictated progress note. Diagnosis: Problems: (1) Schizophrenia, chronic with acute exacerbation (2) Impulse control disorder, unspecified (3) Anxiety disorder, unspecified (4) Bipolar disorder, current episode mixed, severe, with psychotic features (5) Mild cognitive impairment (6) Schizophrenia, catatonic, chronic with acute exacerbation PHI GLASER MD February 09, 2022 21:47
--- NOTE | 2022-02-09 22:03 | PDOC ---
Exam Note: Zay Note: Please also refer to the separate dictated note~for this date of service dictated separately.~Patient seen individually. Discussed the patient with Nursing staff reviewed the chart.~Reviewed interim history and current functioning. Reviewed vital signs,~Labs/ Radiology~and current medications noted below. Continue current treatment with the changes noted in the dictated addendum note Assessment: Vital Signs/I&O: Vital Signs Date Time Temp Pulse Resp B/P (MAP) Pulse Ox O2 Delivery O2 Flow Rate FiO2 02/09/22 16:26 97.3 78 18 171/79 (109) 92 02/09/22 06:31 Room Air I & O 02/08/22 02/08/22 02/09/22 15:00 23:00 07:00 Intake Total 240 ml 240 ml Output Total 950 ml Balance 240 ml -710 ml Labs: Laboratory Tests Test 02/08/22 22:35 02/08/22 23:27 02/09/22 00:29 02/09/22 01:42 Glucose (Fingerstick) 99 mg/dL (70-99) 75 mg/dL (70-99) 80 mg/dL (70-99) 78 mg/dL (70-99) Test 02/09/22 02:51 02/09/22 03:54 02/09/22 05:13 02/09/22 06:40 Glucose (Fingerstick) 90 mg/dL (70-99) 120 mg/dL (70-99) H 104 mg/dL (70-99) H 123 mg/dL (70-99) H Test 02/09/22 07:35 02/09/22 11:20 02/09/22 17:14 02/09/22 19:34 Glucose (Fingerstick) 126 mg/dL (70-99) H 259 mg/dL (70-99) H 103 mg/dL (70-99) H 174 mg/dL (70-99) H Current Medications: Meds: Laboratory Tests Test 02/08/22 22:35 02/08/22 23:27 02/09/22 00:29 02/09/22 01:42 Glucose (Fingerstick) 99 mg/dL 75 mg/dL 80 mg/dL 78 mg/dL Test 02/09/22 02:51 02/09/22 03:54 02/09/22 05:13 02/09/22 06:40 Glucose (Fingerstick) 90 mg/dL 120 mg/dL 104 mg/dL 123 mg/dL Test 02/09/22 07:35 02/09/22 11:20 02/09/22 17:14 02/09/22 19:34 Glucose (Fingerstick) 126 mg/dL 259 mg/dL 103 mg/dL 174 mg/dL Current Medications Medications (Trade) Dose Ordered Sig/Jhony Route PRN Reason Start Time Stop Time Status Last Admin Dose Admin Potassium Chloride (Klor-Con) 40 meq 1X ONCE PO 01/29/22 21:30 01/29/22 21:43 DC 01/29/22 21:32 Acetaminophen (Tylenol) 650 mg PRN Q6HRS PRN PO MILD PAIN / TEMP > 100.3'F 01/29/22 22:00 01/29/22 22:57 DC Multi-Ingredient Ointment (Analgesic Furlong) 1 izzy PRN QID PRN TP MUSCLE PAIN 01/29/22 22:00 Al Hydroxide/Mg Hydroxide (Mylanta Plus Xs) 15 ml PRN AFTMEALHC PRN PO DYSPEPSIA 01/29/22 22:00 Magnesium Hydroxide (Milk Of Magnesia) 2,400 mg PRN QHS PRN PO 1ST CHOICE CONSTIPATION 01/29/22 22:00 02/05/22 23:46 Acetaminophen (Tylenol) 500 mg PRN Q4HRS PRN PO PAIN 01/29/22 22:15 02/07/22 20:14 Aspirin (Aspirin Enteric Coated) 81 mg DAILY PO 01/30/22 09:00 02/09/22 08:29 Bisacodyl (Dulcolax Supp) 10 mg PRN DAILY PRN RC 2ND CHOICE CONSTIPATION 01/29/22 22:15 Vitamin D (Vitamin D3) 2,000 unit DAILY PO 01/30/22 09:00 02/08/22 08:47 Glucose (Insta-Glucose) 15 gm PRN Q15MIN PRN PO low blood sugar 01/29/22 22:15 02/08/22 17:05 Divalproex Sodium (Depakote) 125 mg TID PO 01/29/22 23:00 01/30/22 16:59 DC 01/30/22 13:59 Glimepiride (Amaryl) 2 mg DAILY PO 01/30/22 09:00 02/08/22 16:59 DC 02/08/22 08:47 Haloperidol (Haldol) 2.5 mg BID PO 01/29/22 23:00 02/02/22 17:12 DC 02/02/22 08:13 Levothyroxine Sodium (Synthroid) 50 mcg DAILY06 PO 01/30/22 06:00 02/09/22 05:04 Lorazepam (Ativan) 1 mg TID PO 01/29/22 23:00 01/30/22 16:59 DC 01/30/22 13:58 Melatonin (Melatonin) 6 mg QHS PO 01/29/22 23:00 02/09/22 16:51 DC 02/07/22 20:04 Metformin HCl (Glucophage) 1,000 mg BIDWMEALS PO 01/30/22 08:00 02/08/22 16:59 DC 02/08/22 08:47 Olanzapine (ZyPREXA) 10 mg BID PO 01/29/22 23:00 02/05/22 17:08 DC 02/05/22 08:11 Polyethylene Glycol (miraLAX) 17 gm DAILY PO 01/30/22 09:00 02/06/22 08:38 Saliva Substitute (Biotene Moisturizing Mouth) 1 spray PRN Q4HRS PRN MM DRY MOUTH 01/29/22 22:15 Senna/Docusate Sodium (Senna Plus) 1 tab BID PO 01/29/22 23:00 01/30/22 20:52 DC 01/29/22 23:42 Trazodone HCl (Desyrel) 50 mg PRN QHS PRN PO INSOMNIA 01/29/22 22:15 Trazodone HCl (Desyrel) 50 mg QHS PO 01/29/22 23:00 02/09/22 16:51 DC 02/07/22 20:05 Acyclovir (Zovirax) 400 mg BID PO 01/29/22 23:00 02/09/22 20:28 Non-Formulary Medication (Biotin ) 5 mg DAILY PO 01/30/22 09:00 01/29/22 23:06 DC Artificial Tears (Refresh Classic) 1 drop BID OU 01/29/22 23:00 02/09/22 08:29 Cyanocobalamin (Vitamin B-12) 1,000 mcg DAILY PO 01/30/22 09:00 02/08/22 08:47 Glucagon (Glucagen Kit) 1 mg PRN DAILY PRN IM BS<60 and unresponsive or NPO 01/29/22 23:15 Insulin Glargine (Lantus Syringe) 30 unit QHS SQ 01/29/22 23:00 02/08/22 16:59 DC 02/07/22 21:13 Lactobacillus Rhamnosus (Culturelle) 1 cap DAILY PO 01/30/22 09:00 02/09/22 08:30 Lurasidone HCl (Latuda) 80 mg DAILY PO 01/30/22 09:00 02/09/22 08:30 Multivitamins/ Calcium (Thera-M Plus) 1 tab DAILY PO 01/30/22 09:00 02/08/22 08:47 Nitrofurantoin Macrocrystals (Macrobid) 100 mg QHS PO 01/30/22 21:00 02/09/22 20:27 Lorazepam (Ativan) 0.5 mg BID PO 01/31/22 09:00 02/06/22 17:01 DC 02/06/22 08:37 Lorazepam (Ativan) 1 mg PRN QHS PRN PO ANXIETY / AGITATION 01/30/22 17:00 Divalproex Sodium (Depakote Er) 750 mg QHS PO 01/30/22 21:00 02/09/22 20:27 Senna/Docusate Sodium (Senna Plus) 1 tab PRN BID PRN PO CONSTIPATION 01/30/22 21:00 02/07/22 05:57 Polymyxin/ Trimethoprim Sulfate (Polytrim) 1 drop QID OU 01/30/22 21:00 01/30/22 23:42 DC 01/30/22 21:00 Polymyxin/ Trimethoprim Sulfate (Polytrim) 1 drop QID OD 01/31/22 09:00 02/08/22 21:33 DC 02/08/22 21:31 Potassium Chloride (Klor-Con) 20 meq STK-MED ONCE PO 01/29/22 21:30 02/01/22 09:35 DC Haloperidol (Haldol) 2.5 mg DAILY PO 02/03/22 09:00 02/05/22 17:08 DC 02/05/22 08:11 Olanzapine (ZyPREXA) 7.5 mg BID PO 02/05/22 21:00 02/08/22 11:36 DC 02/08/22 08:47 Bupropion HCl (Wellbutrin Xl) 150 mg DAILY PO 02/06/22 09:00 02/10/22 23:50 02/09/22 08:29 Nystatin (Nystop) 1 izzy BID TP 02/06/22 09:00 02/09/22 20:29 Lorazepam (Ativan) 0.5 mg QHS PO 02/06/22 21:00 02/08/22 23:50 DC 02/07/22 20:04 Bupropion HCl (Wellbutrin Xl) 300 mg DAILY PO 02/11/22 09:00 Olanzapine (ZyPREXA) 5 mg BID PO 02/08/22 21:00 Insulin Glargine (Lantus Syringe) 10 unit QHS SQ 02/08/22 17:00 02/08/22 17:40 DC Metformin HCl (Glucophage) 500 mg BIDWMEALS PO 02/08/22 17:00 02/09/22 08:29 Dextrose 1,000 ml @ 20 mls/hr Q24H IV 02/08/22 17:30 02/08/22 18:00 Insulin Glargine (Lantus Syringe) 10 unit QHS SQ 02/08/22 21:00 Polymyxin/ Trimethoprim Sulfate (Polytrim) 1 drop QID OU 02/09/22 09:00 02/19/22 08:59 02/09/22 20:28 Melatonin (Melatonin) 6 mg PRN QHS PRN PO INSOMNIA 02/09/22 17:00 Trazodone HCl (Desyrel) 50 mg PRN QHS PRN PO INSOMNIA, MAY REPEAT X1 02/09/22 17:00 Current Medications Medications (Trade) Dose Ordered Sig/Jhony Route PRN Reason Start Time Stop Time Status Last Admin Dose Admin Polymyxin/ Trimethoprim Sulfate (Polytrim) 1 drop QID OU 02/09/22 09:00 02/19/22 08:59 02/09/22 20:28 I have reviewed the current psychotropics carefully including drug interactions. Risk benefit ratio favors no change other than as noted in my dictated progress note. Diagnosis: Problems: (1) Impulse control disorder, unspecified (2) Anxiety disorder, unspecified (3) Bipolar disorder, current episode mixed, severe, with psychotic features (4) Mild cognitive impairment (5) Schizophrenia, catatonic, chronic with acute exacerbation PHI GLASER MD February 09, 2022 22:03
[2022-02-10] MEDS: LEVOTHYROXINE 50 MCG TABLET PO SCH (05:40)
[2022-02-10 06:06] VITALS: BP 151/77
[2022-02-10] MEDS: metFORMIN 500 MG TABLET PO SCH ×2 (08:21→16:52)
[2022-02-10] MEDS: OLANZapine 5 MG TABLET PO SCH ×2 (08:21→20:35)
[2022-02-10] MEDS: LURASIDONE 40 MG TABLET. PO SCH (08:21)
[2022-02-10] MEDS: MULTIVITAMIN with MINERAL TABLET. PO SCH (08:21)
[2022-02-10] MEDS: buPROPion XL 150 MG TAB.ER.24H PO SCH (08:22)
[2022-02-10] MEDS: LACTOBACILLUS RHAMNOSUS GG 1 CAPSULE. PO SCH (08:22)
[2022-02-10] MEDS: ACYCLOVIR 200 MG CAPSULE PO SCH ×2 (08:22→20:31)
[2022-02-10] MEDS: CYANOCOBALAMIN (VITAMIN B-12) 1,000 MCG TABLET. PO SCH (08:22)
[2022-02-10] MEDS: POLYMYXIN/TRIMETHOPRIM OPHTH SOLUTION 10ML BOTTLE. OU SCH ×4 (08:22→20:35)
[2022-02-10] MEDS: ASPIRIN ENTERIC COATED 81 MG TABLET.DR. PO SCH (08:22)
[2022-02-10] MEDS: POLYVINYL ALCOHOL/POVIDONE/PF OPHTH SOLUTION DROPERETTE. OU SCH ×2 (08:22→20:31)
[2022-02-10] MEDS: CHOLECALCIFEROL (VITAMIN D3) 1,000 UNIT TABLET PO SCH (08:22)
[2022-02-10] MEDS: NYSTATIN TOPICAL POWDER 15GM BOTTLE. TP SCH ×2 (08:23→20:34)
--- NOTE | 2022-02-10 08:41 | PDOC ---
Exam Note: Zay Note: This note is a late entry for 02/09/2022 covers elements not covered in my initial note. Subjective: The patient was seen individually on 02/09/2022, discussed and reviewed the chart with Keiko CABRERA. The patient slept 8-1/4 hours previous night. She was hypoglycemic yesterday. Received IV D5W till noon. At lunch her blood sugar was 245. She had orange juice Glucerna for lunch and then blood sugar was elevated. She is more awake, opening her eyes. She subjectively admits to feeling depressed. I had a lengthy discussion with her. Discussed how we started Wellbutrin as an antidepressant and we are adjusting it. She continues to have urinary retention. CT head was remarkable and EKG unremarkable. Review of Systems: Ambulation impaired in wheelchair. Hard of hearing. No CV, , pulmonary, eye system symptoms on review. Positive for tiredness, feeling depressed. Mental Status Exam: Patient is oriented to herself and situation. Speech moderate latency. Often response is monosyllabic. Abstraction fair. Computation impaired. Language function intact. Attention span short. Mood and affect withdrawn. Laboratory Data: Reviewed. Impression: Schizoaffective disorder, bipolar type, depressed. Anxiety disorder unspecified. Impulse control disorder unspecified. Plan: Dr. Strickland will cover for me from 02/10/2022 until 02/27/2022. She is on Zyprexa 5 mg b.i.d. We will hold if sedated. We will change the melatonin 6 mg h.s. to p.r.n. and the same with trazodone and change the Latuda 80 mg daily h.s. in case it is causing slight amount of sedation during the day. Maintain Wellbutrin, increase it gradually, Ativan has been stopped. Continue Depakote. Follow labs level. Adjust as clinically indicated. Reviewed drug interactions, risk-benefit ratio. Assessment: Vital Signs/I&O: Vital Signs Date Time Temp Pulse Resp B/P (MAP) Pulse Ox O2 Delivery O2 Flow Rate FiO2 02/10/22 06:06 97.8 87 16 151/77 (101) 97 02/09/22 06:31 Room Air I & O 02/09/22 02/09/22 02/10/22 15:00 23:00 07:00 Intake Total 340 ml 360 ml Output Total 1100 ml Balance 340 ml -740 ml Labs: Laboratory Tests Test 02/09/22 11:20 02/09/22 17:14 02/09/22 19:34 02/10/22 02:12 Glucose (Fingerstick) 259 mg/dL (70-99) H 103 mg/dL (70-99) H 174 mg/dL (70-99) H 161 mg/dL (70-99) H Test 02/10/22 07:33 Glucose (Fingerstick) 165 mg/dL (70-99) H Current Medications: Meds: Current Medications Medications (Trade) Dose Ordered Sig/Jhony Route PRN Reason Start Time Stop Time Status Last Admin Dose Admin Polymyxin/ Trimethoprim Sulfate (Polytrim) 1 drop QID OU 02/09/22 09:00 02/19/22 08:59 02/10/22 08:22 I have reviewed the current psychotropics carefully including drug interactions. Risk benefit ratio favors no change other than as noted in my dictated progress note. Diagnosis: Problems: (1) Impulse control disorder, unspecified (2) Anxiety disorder, unspecified (3) Bipolar disorder, current episode mixed, severe, with psychotic features (4) Mild cognitive impairment (5) Schizophrenia, catatonic, chronic with acute exacerbation PHI GLASER MD February 10, 2022 08:41
[2022-02-10] MEDS: POLYETHYLENE GLYCOL 3350 17 GM PACKET. PO SCH (09:00)
[2022-02-10 15:51] VITALS: BP 144/90
[2022-02-10] MEDS: IV DEXTROSE 10% 1,000 ML IV SCH (16:54)
[2022-02-10] MEDS: NITROFURANTOIN MONOHYD/M-CRYST 100 MG CAPSULE. PO SCH (20:31)
[2022-02-10] MEDS: DIVALPROEX ER 250 MG TAB.ER.24H. PO SCH (20:31)
[2022-02-10] MEDS: INSULIN GLARGINE SYRINGE. SQ SCH (20:36)
--- NOTE | 2022-02-11 03:59 | PN ---
DATE: 02/10/2022 SUBJECTIVE: The patient was seen today, met with the staff. Chart reviewed and also covering for Dr. Serrano. Staff reports no major problems except she has been depressed, withdrawn, but denies of having negative thoughts. The patient also observed to be hyperverbal at times, racing thoughts, catatonic behaviors. The patient currently on wheelchair. Staff have observed her to be lethargic today. OBSERVATION: VITAL SIGNS: Temperature 97.8, blood pressure 151/77, pulse 87, respirations 16, O2 sat 97%. GENERAL: Slept about 7 hours last night. CURRENT MEDICATIONS: Include bupropion 300 mg daily, olanzapine 5 mg twice a day, trazodone 50 mg at night p.r.n., melatonin 6 mg at night p.r.n., bupropion 150 mg daily, Depakote 750 mg at night and Latuda 80 mg daily. LABORATORY DATA: The patient's lab reviewed. The patient's Depakote level was 63. ASSESSMENT: 1. Schizoaffective disorder. 2. Bipolar type, depressed. 3. Anxiety disorder, unspecified. PLAN: Continue with the current treatment. The patient's Zyprexa to be decreased to 2.5 mg twice a day. LENGTH OF STAY: Five to seven days. DARY/DENISE DR: DARY/bk TID: [id number]
[2022-02-11] MEDS: LEVOTHYROXINE 50 MCG TABLET PO SCH (05:14)
[2022-02-11 06:03] LABS: CLARITY,URINE HAZY; COLOR,URINE YELLOW; GLUCOSE,URINE NEG (NEG); NITRITE,URINE NEG (NEG); UROBILINOGEN,URINE 0.2 mg/dL (0.2 mg/dL)
[2022-02-11 06:04] LABS: BACTERIA,URINE MANY /HPF (0-FEW); RBC,URINE OCC /HPF (0-2); WBC,URINE >40 /HPF (0-4)
[2022-02-11 06:20] VITALS: BP 140/81
[2022-02-11] MEDS: MULTIVITAMIN with MINERAL TABLET. PO SCH (08:47)
[2022-02-11] MEDS: metFORMIN 500 MG TABLET PO SCH ×2 (08:47→17:39)
[2022-02-11] MEDS: ASPIRIN ENTERIC COATED 81 MG TABLET.DR. PO SCH (08:47)
[2022-02-11] MEDS: buPROPion XL 300 MG TAB.ER.24H. PO SCH (08:48)
[2022-02-11] MEDS: ACYCLOVIR 200 MG CAPSULE PO SCH ×2 (08:48→20:24)
[2022-02-11] MEDS: POLYETHYLENE GLYCOL 3350 17 GM PACKET. PO SCH (08:48)
[2022-02-11] MEDS: CHOLECALCIFEROL (VITAMIN D3) 1,000 UNIT TABLET PO SCH (08:48)
[2022-02-11] MEDS: POLYVINYL ALCOHOL/POVIDONE/PF OPHTH SOLUTION DROPERETTE. OU SCH ×2 (08:48→20:24)
[2022-02-11] MEDS: LACTOBACILLUS RHAMNOSUS GG 1 CAPSULE. PO SCH (08:48)
[2022-02-11] MEDS: OLANZapine 5 MG TABLET PO SCH ×2 (08:48→20:24)
[2022-02-11] MEDS: POLYMYXIN/TRIMETHOPRIM OPHTH SOLUTION 10ML BOTTLE. OU SCH ×4 (08:48→20:26)
[2022-02-11] MEDS: NYSTATIN TOPICAL POWDER 15GM BOTTLE. TP SCH ×2 (08:48→20:24)
[2022-02-11] MEDS: LURASIDONE 40 MG TABLET. PO SCH (08:48)
[2022-02-11] MEDS: CYANOCOBALAMIN (VITAMIN B-12) 1,000 MCG TABLET. PO SCH (08:48)
[2022-02-11 15:43] VITALS: BP 119/76
[2022-02-11] MEDS: NITROFURANTOIN MONOHYD/M-CRYST 100 MG CAPSULE. PO SCH (20:23)
[2022-02-11] MEDS: DIVALPROEX ER 250 MG TAB.ER.24H. PO SCH (20:23)
[2022-02-11] MEDS: INSULIN GLARGINE SYRINGE. SQ SCH (20:26)
--- NOTE | 2022-02-12 00:35 | PN ---
DATE: 02/11/2022 SUBJECTIVE: The patient was seen today, met with the staff. Chart reviewed and also covering for Dr. Serrano. Staff reports no major behavior problems except she tends to be withdrawn, feeling helpless, blunting of affect, and does not make eye contact. OBSERVATION: VITAL SIGNS: Temperature 98.1, blood pressure 140/81, pulse 91, respirations 18, O2 sat 95%. GENERAL: Slept about 7 hours last night. The patient's appetite is fair. CURRENT MEDICATIONS: Include bupropion 300 mg daily, olanzapine 2.5 mg twice a day, trazodone 50 mg at night p.r.n., and melatonin 6 mg at night p.r.n., Depakote 750 mg at night, Latuda 80 mg daily. The patient is also on Wellbutrin 150 mg daily. LABORATORY DATA: The patient's lab reviewed. ASSESSMENT: 1. Schizoaffective disorder. 2. Bipolar disorder, depressed. 3. Anxiety disorder, unspecified. PLAN: To continue with treatment. LENGTH OF STAY: Five to seven days. LINA DR: Ish TID: [id number]
[2022-02-12] MEDS: LEVOTHYROXINE 50 MCG TABLET PO SCH (05:59)
[2022-02-12 06:00] VITALS: BP 131/73
[2022-02-12 07:12] LABS: BASO % 1 % (0-3); EOS % 0 % (0-3); HEMATOCRIT 34.1 % (36.0-47.0); HEMOGLOBIN 11.5 g/dL (12.0-15.5); LYMPH # 1.5 x10^3/uL (1.0-4.8); LYMPH % 24 % (24-48); MEAN CORPUSCULAR HEMOGLOBIN 30 pg (25-35); MEAN CORPUSCULAR HGB CONC 34 g/dL (31-37); MEAN CORPUSCULAR VOLUME 90 fL (79-100); MONO # 0.5 x10^3/uL (0.0-1.1); MONO % 8 % (0-9); NEUT # 4.2 x10^3uL (1.8-7.7); NEUT % 68 % (31-73); PLATELET COUNT 218 x10^3/uL (140-400); RED BLOOD COUNT 3.81 x10^6/uL (3.50-5.40); RED CELL DISTRIBUTION WIDTH 13.6 % (11.5-14.5); WHITE BLOOD COUNT 6.2 x10^3/uL (4.0-11.0)
[2022-02-12 07:26] LABS: ALBUMIN 2.9 g/dL (3.4-5.0); ALBUMIN/GLOBULIN RATIO 1.1 (1.0-1.7); CALCIUM 9.2 mg/dL (8.5-10.1); GFR 54.7; POTASSIUM 3.9 mmol/L (3.5-5.1); TOTAL BILIRUBIN 0.3 mg/dL (0.2-1.0); TOTAL PROTEIN 5.6 g/dL (6.4-8.2)
[2022-02-12] MEDS: POLYMYXIN/TRIMETHOPRIM OPHTH SOLUTION 10ML BOTTLE. OU SCH ×4 (09:02→20:25)
[2022-02-12] MEDS: POLYETHYLENE GLYCOL 3350 17 GM PACKET. PO SCH (09:03)
[2022-02-12] MEDS: POLYVINYL ALCOHOL/POVIDONE/PF OPHTH SOLUTION DROPERETTE. OU SCH ×2 (09:03→20:26)
[2022-02-12] MEDS: LURASIDONE 40 MG TABLET. PO SCH (09:04)
[2022-02-12] MEDS: LACTOBACILLUS RHAMNOSUS GG 1 CAPSULE. PO SCH (09:04)
[2022-02-12] MEDS: ASPIRIN ENTERIC COATED 81 MG TABLET.DR. PO SCH (09:04)
[2022-02-12] MEDS: CHOLECALCIFEROL (VITAMIN D3) 1,000 UNIT TABLET PO SCH (09:04)
[2022-02-12] MEDS: CYANOCOBALAMIN (VITAMIN B-12) 1,000 MCG TABLET. PO SCH (09:05)
[2022-02-12] MEDS: metFORMIN 500 MG TABLET PO SCH ×2 (09:05→17:24)
[2022-02-12] MEDS: MULTIVITAMIN with MINERAL TABLET. PO SCH (09:05)
[2022-02-12] MEDS: ACYCLOVIR 200 MG CAPSULE PO SCH ×2 (09:05→20:26)
[2022-02-12] MEDS: buPROPion XL 300 MG TAB.ER.24H. PO SCH (09:05)
[2022-02-12] MEDS: NYSTATIN TOPICAL POWDER 15GM BOTTLE. TP SCH ×2 (09:05→23:53)
[2022-02-12] MEDS: OLANZapine 5 MG TABLET PO SCH ×2 (09:05→20:27)
[2022-02-12 16:02] VITALS: BP 129/74
[2022-02-12] MEDS: DIVALPROEX ER 250 MG TAB.ER.24H. PO SCH (20:26)
[2022-02-12] MEDS: INSULIN GLARGINE SYRINGE. SQ SCH (20:32)
[2022-02-13] MEDS: LEVOTHYROXINE 50 MCG TABLET PO SCH (05:55)
[2022-02-13 06:19] VITALS: BP 153/84
[2022-02-13] MEDS: NYSTATIN TOPICAL POWDER 15GM BOTTLE. TP SCH ×2 (08:33→20:16)
[2022-02-13] MEDS: ASPIRIN ENTERIC COATED 81 MG TABLET.DR. PO SCH (08:34)
[2022-02-13] MEDS: buPROPion XL 300 MG TAB.ER.24H. PO SCH (08:34)
[2022-02-13] MEDS: metFORMIN 500 MG TABLET PO SCH ×2 (08:34→17:12)
[2022-02-13] MEDS: LACTOBACILLUS RHAMNOSUS GG 1 CAPSULE. PO SCH (08:34)
[2022-02-13] MEDS: LURASIDONE 40 MG TABLET. PO SCH (08:34)
[2022-02-13] MEDS: MULTIVITAMIN with MINERAL TABLET. PO SCH (08:34)
[2022-02-13] MEDS: POLYVINYL ALCOHOL/POVIDONE/PF OPHTH SOLUTION DROPERETTE. OU SCH ×2 (08:34→20:20)
[2022-02-13] MEDS: ACYCLOVIR 200 MG CAPSULE PO SCH ×2 (08:34→20:20)
[2022-02-13] MEDS: POLYMYXIN/TRIMETHOPRIM OPHTH SOLUTION 10ML BOTTLE. OU SCH ×4 (08:34→20:16)
[2022-02-13] MEDS: CHOLECALCIFEROL (VITAMIN D3) 1,000 UNIT TABLET PO SCH (08:34)
[2022-02-13] MEDS: CYANOCOBALAMIN (VITAMIN B-12) 1,000 MCG TABLET. PO SCH (08:34)
[2022-02-13] MEDS: OLANZapine 5 MG TABLET PO SCH ×2 (08:34→20:20)
[2022-02-13] MEDS: POLYETHYLENE GLYCOL 3350 17 GM PACKET. PO SCH (08:35)
--- NOTE | 2022-02-13 09:28 | PN ---
DATE: 02/12/2022 SUBJECTIVE: The patient was seen today, met with the staff. Chart reviewed and also covering for Dr. Serrano. The patient is noncommunicative, most of the time, withdrawn, isolative, but staff reports no major behavior problems. The patient is medication compliant. OBSERVATION: VITAL SIGNS: Temperature 97.5, blood pressure 131/73, pulse 86, respirations 20, O2 sat 95%. GENERAL: Slept about 6 hours last night. The patient's appetite is fair. CURRENT MEDICATIONS: Include bupropion 300 mg daily, Depakote 750 mg at night, Latuda 80 mg at night, melatonin 6 mg at night p.r.n., olanzapine 2.5 mg daily. The patient is not having any side effects to medications. LABORATORY DATA: The patient's lab reviewed. ASSESSMENT: 1. Schizoaffective disorder. 2. Bipolar disorder, depressed. 3. Anxiety disorder, unspecified. PLAN: To continue treatment. LENGTH OF STAY: Five to seven days. MARILYN DR: Ish TID: [id number] [facility]
[2022-02-13 16:11] VITALS: BP 136/56
[2022-02-13] MEDS: DIVALPROEX ER 250 MG TAB.ER.24H. PO SCH (20:20)
[2022-02-13] MEDS: CEFDINIR 300 MG CAPSULE PO SCH (20:22)
[2022-02-13] MEDS: INSULIN GLARGINE SYRINGE. SQ SCH (21:03)
[2022-02-14] MEDS: LEVOTHYROXINE 50 MCG TABLET PO SCH (05:01)
[2022-02-14 05:39] VITALS: BP 119/58
--- NOTE | 2022-02-14 06:44 | PN ---
DATE: 02/13/2022 02/13/2022 SUBJECTIVE: The patient was seen today, met with the staff. Chart reviewed and covering for Dr. Serrano. The patient's behavior remains the same. She is still helpless and difficult to redirect at times. OBSERVATION: VITAL SIGNS: Temperature 98.5, blood pressure 136/56, pulse 92, respirations 16, O2 sat 96%. GENERAL: Slept about 7-1/2 hours last night. Her appetite improved. CURRENT MEDICATIONS: Include bupropion 300 mg daily, olanzapine 2.5 mg twice a day, trazodone 50 mg at night, melatonin 6 mg at night p.r.n., Depakote 750 mg at night, lorazepam 1 mg at bedtime p.r.n., Latuda 80 mg daily. The patient is not having any side effects to the medications. LABORATORY DATA: The patient's lab reviewed. ASSESSMENT: 1. Schizoaffective disorder. 2. Bipolar disorder, depressed. 3. Anxiety disorder, unspecified. PLAN: To continue with treatment. LENGTH OF STAY: Five days. MARILYN BLOUNT: Ish TID: [id number] [facility]
[2022-02-14] MEDS: CHOLECALCIFEROL (VITAMIN D3) 1,000 UNIT TABLET PO SCH (08:48)
[2022-02-14] MEDS: LACTOBACILLUS RHAMNOSUS GG 1 CAPSULE. PO SCH (08:48)
[2022-02-14] MEDS: ACYCLOVIR 200 MG CAPSULE PO SCH ×2 (08:48→19:58)
[2022-02-14] MEDS: CYANOCOBALAMIN (VITAMIN B-12) 1,000 MCG TABLET. PO SCH (08:48)
[2022-02-14] MEDS: metFORMIN 500 MG TABLET PO SCH ×2 (08:48→17:08)
[2022-02-14] MEDS: CEFDINIR 300 MG CAPSULE PO SCH ×2 (08:48→19:59)
[2022-02-14] MEDS: OLANZapine 5 MG TABLET PO SCH ×2 (08:50→19:59)
[2022-02-14] MEDS: POLYMYXIN/TRIMETHOPRIM OPHTH SOLUTION 10ML BOTTLE. OU SCH ×4 (08:50→19:58)
[2022-02-14] MEDS: ASPIRIN ENTERIC COATED 81 MG TABLET.DR. PO SCH (08:50)
[2022-02-14] MEDS: POLYVINYL ALCOHOL/POVIDONE/PF OPHTH SOLUTION DROPERETTE. OU SCH ×2 (08:50→20:00)
[2022-02-14] MEDS: MULTIVITAMIN with MINERAL TABLET. PO SCH (08:50)
[2022-02-14] MEDS: POLYETHYLENE GLYCOL 3350 17 GM PACKET. PO SCH (08:50)
[2022-02-14] MEDS: buPROPion XL 300 MG TAB.ER.24H. PO SCH (08:50)
[2022-02-14] MEDS: LURASIDONE 40 MG TABLET. PO SCH (08:50)
[2022-02-14] MEDS: NYSTATIN TOPICAL POWDER 15GM BOTTLE. TP SCH ×2 (08:51→19:58)
[2022-02-14 16:12] VITALS: BP 142/81
[2022-02-14] MEDS: DIVALPROEX ER 250 MG TAB.ER.24H. PO SCH (19:59)
[2022-02-14] MEDS: INSULIN GLARGINE SYRINGE. SQ SCH (20:18)
--- NOTE | 2022-02-15 03:56 | PN ---
DATE: 02/14/2022 SUBJECTIVE: The patient was seen today, met with the staff. Chart reviewed. I am covering for Dr. Serrano. Staff reports increased behavior problems, helpless, blunting of affects, wanting to stay in bed. OBSERVATION: VITAL SIGNS: Temperature 98.9, blood pressure 119/58, pulse 71, respirations 18, O2 sat 94%. GENERAL: Slept about 7 hours last night. The patient's appetite is fair. LABORATORY DATA: The patient's lab reviewed. Hemoglobin 11.5, blood sugar 197, BUN 27. CURRENT MEDICATIONS: Include bupropion 300 mg daily, olanzapine 2.5 mg twice a day, trazodone 50 mg at bedtime p.r.n., melatonin 6 mg at bedtime p.r.n., Depakote 750 mg at night, lorazepam 1 mg at bedtime p.r.n., Latuda 80 mg daily. The patient is not having any side effects to medications. ASSESSMENT: 1. Schizoaffective disorder. 2. Bipolar disorder, depressed. 3. Anxiety disorder, unspecified. PLAN: To continue with the treatment. LENGTH OF STAY: Five days. LINA DR: Ish TID: [id number]
[2022-02-15] MEDS: LEVOTHYROXINE 50 MCG TABLET PO SCH (05:14)
[2022-02-15 05:53] VITALS: BP 149/78
[2022-02-15] MEDS: CEFDINIR 300 MG CAPSULE PO SCH ×2 (08:13→20:23)
[2022-02-15] MEDS: CHOLECALCIFEROL (VITAMIN D3) 1,000 UNIT TABLET PO SCH (08:13)
[2022-02-15] MEDS: ACYCLOVIR 200 MG CAPSULE PO SCH ×2 (08:13→20:22)
[2022-02-15] MEDS: MULTIVITAMIN with MINERAL TABLET. PO SCH (08:13)
[2022-02-15] MEDS: POLYVINYL ALCOHOL/POVIDONE/PF OPHTH SOLUTION DROPERETTE. OU SCH ×2 (08:13→20:23)
[2022-02-15] MEDS: OLANZapine 5 MG TABLET PO SCH ×2 (08:13→20:23)
[2022-02-15] MEDS: CYANOCOBALAMIN (VITAMIN B-12) 1,000 MCG TABLET. PO SCH (08:13)
[2022-02-15] MEDS: LACTOBACILLUS RHAMNOSUS GG 1 CAPSULE. PO SCH (08:13)
[2022-02-15] MEDS: ASPIRIN ENTERIC COATED 81 MG TABLET.DR. PO SCH (08:14)
[2022-02-15] MEDS: buPROPion XL 300 MG TAB.ER.24H. PO SCH (08:14)
[2022-02-15] MEDS: metFORMIN 500 MG TABLET PO SCH ×2 (08:14→17:25)
[2022-02-15] MEDS: LURASIDONE 40 MG TABLET. PO SCH (08:14)
[2022-02-15] MEDS: POLYMYXIN/TRIMETHOPRIM OPHTH SOLUTION 10ML BOTTLE. OU SCH ×4 (08:14→20:22)
[2022-02-15] MEDS: NYSTATIN TOPICAL POWDER 15GM BOTTLE. TP SCH ×2 (08:15→20:22)
[2022-02-15] MEDS: POLYETHYLENE GLYCOL 3350 17 GM PACKET. PO SCH (08:15)
[2022-02-15 16:14] VITALS: BP 137/86
--- NOTE | 2022-02-15 16:32 | TX PLAN ---
Interdisciplinary Tx Plan Admission Information January 29, 2022 at 21:24 Legal Status (on Admission): Voluntary DPOA/Guardian Name: Bret Gerardo Contact Other Contact Name: [facility] Other Contact Verified Code Status: Full Code Allergies: Coded Allergies: codeine (Verified Allergy, Unknown, 01/29/22) Diagnoses Primary Diagnosis: Schizophrenia with acute exacerbation Reasons for Admission: Delusions, Hallucinations, Other Problem in Patient's Words: She goes through these spurts where she does okay then works herself into a tizzy and goes "Looney Tunes". Additional Admission Comments: According to the intake, pt is restless, constantly moving, racing thoughts, up for 3 days, manic, thinks someone is coming to pick her up, obsessed with her body, saw a man coming to get her. Problems Active Problems: delusional withdrawn to room flat affect at times lethargic Inactive Problems: medication compliant Pt Strengths/Limitations Ability for Forrest: Poor Cognitive Functioning/Ability: Poor Communication Skills/Ability: Fair Financial Resources: Fair Insight/Judgement: Poor Intellectual Ability: Fair Physical Health: Fair Social Skills: Fair Stability in Family: Good Stability in School/Work: Poor Verbal Skills: Fair Discharge Criteria Discharge Criteria: No need for close observ., Adequate arrangements @DC, Improved behavior, Improved mood/thought Preliminary Discharge Plan Preliminary DC Plan: Current Living Arrange. Special Precautions Fall Risk: Low Initial D/C Plan Pt to discharge back to [facility] once stable. Currently Utilized Resources Currently Utilized Resources/P: PCP Services through the [place] Identified Problems/Hx/Goals Objectives/Short-Term Goals Short Term Goals: Dec. Hallucination/Delus, Dec. Outbursts, Medication Stabilization, Monitor Med Effects, Promote Coping Skill Short Term Goals in Patient's: N/A Interventions/Frequency Staff Interventions/Frequency&: Psychiatrist to assess pt at least 3x per week for medication management. Social Work to assess pt at least 2x per week to identify barriers to care and discharge planning. Nursing to assess medication effects, behavior modification and complete 15 minute checks daily. Encourage participatin in group activities (if applicable) or 1:1 engagement based off activity dept goals. 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 [facility]. 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 Pt is eating roughly 100% of meals and sleeping on average 7.5 hours per night. Pt continues to have a flat affect and somewhat withdrawn to her room; A/O x self only. Pt appears to be helpless and won't do much for herself, as evidenced by staff feeding her when she is capable of feeding herself but won't. Staff put a bite up to her mouth and turned away; it was noted that pt later raised her juice cup up to her mouth. Pt does take her meds whole and has attended six groups this last week. Pt remains on the ABX for her UTI, which does not stop until Tuesday 02/20. SW has noted discharge for pt on Wednesday 02/21; will assess on Saturday. SW noted that pt brother felt pt did well on [place] and wanted to see if that could be started versus the Depakote. The attending psychiatrist will actually plan to decrease pt Depakote a bit and see if that makes pt less "lethargic" as she is noted to be very slow in responses and with her noted flat affect. EMMANUEL will keep pt brother and the facility updated and remain ELOS for Wednesday 02/21. GURMEET MOREJON February 15, 2022 16:31
[2022-02-15] MEDS: DIVALPROEX ER 250 MG TAB.ER.24H. PO SCH (20:23)
[2022-02-15] MEDS: INSULIN GLARGINE SYRINGE. SQ SCH (22:14)
--- NOTE | 2022-02-16 05:19 | PN ---
DATE: 02/15/2022 SUBJECTIVE: The patient was seen today, met with the staff, chart reviewed, and covering for Dr. Serrano. Also, participated in the treatment review meeting today. Staff reports increased confusion, disorganized thinking, mostly pleasant, and she is medication compliant. CURRENT MEDICATIONS: Bupropion 300 mg daily, olanzapine 2.5 mg twice a day, trazodone 50 mg at bedtime p.r.n., melatonin 6 mg at bedtime p.r.n., Depakote 750 mg at night, and lorazepam 1 mg at bedtime p.r.n. The patient is also on Latuda 80 mg. The patient is not having any side effects to the medications. ASSESSMENT: 1. Schizoaffective disorder. 2. Bipolar disorder, depressed. 3. Anxiety disorder, unspecified. PLAN: To continue treatment. LENGTH OF STAY: 5 days. DARY/LAXMI/CALVIN DR: Ish TID: [id number]
[2022-02-16] MEDS: LEVOTHYROXINE 50 MCG TABLET PO SCH (05:37)
[2022-02-16 06:09] VITALS: BP 131/78
[2022-02-16] MEDS: OLANZapine 5 MG TABLET PO SCH ×2 (08:14→21:02)
[2022-02-16] MEDS: POLYETHYLENE GLYCOL 3350 17 GM PACKET. PO SCH (08:14)
[2022-02-16] MEDS: CHOLECALCIFEROL (VITAMIN D3) 1,000 UNIT TABLET PO SCH (08:14)
[2022-02-16] MEDS: metFORMIN 500 MG TABLET PO SCH ×2 (08:14→17:44)
[2022-02-16] MEDS: LURASIDONE 40 MG TABLET. PO SCH (08:14)
[2022-02-16] MEDS: CEFDINIR 300 MG CAPSULE PO SCH ×2 (08:15→21:03)
[2022-02-16] MEDS: POLYVINYL ALCOHOL/POVIDONE/PF OPHTH SOLUTION DROPERETTE. OU SCH ×2 (08:15→21:03)
[2022-02-16] MEDS: LACTOBACILLUS RHAMNOSUS GG 1 CAPSULE. PO SCH (08:15)
[2022-02-16] MEDS: buPROPion XL 300 MG TAB.ER.24H. PO SCH (08:15)
[2022-02-16] MEDS: ACYCLOVIR 200 MG CAPSULE PO SCH ×2 (08:15→21:04)
[2022-02-16] MEDS: MULTIVITAMIN with MINERAL TABLET. PO SCH (08:15)
[2022-02-16] MEDS: ASPIRIN ENTERIC COATED 81 MG TABLET.DR. PO SCH (08:15)
[2022-02-16] MEDS: POLYMYXIN/TRIMETHOPRIM OPHTH SOLUTION 10ML BOTTLE. OU SCH ×4 (08:15→21:03)
[2022-02-16] MEDS: CYANOCOBALAMIN (VITAMIN B-12) 1,000 MCG TABLET. PO SCH (08:15)
[2022-02-16] MEDS: NYSTATIN TOPICAL POWDER 15GM BOTTLE. TP SCH ×2 (08:16→21:02)
[2022-02-16 15:41] VITALS: BP 141/69
[2022-02-16] MEDS: INSULIN GLARGINE SYRINGE. SQ SCH (21:00)
[2022-02-16] MEDS: DIVALPROEX ER 250 MG TAB.ER.24H. PO SCH (21:03)
[2022-02-17] MEDS: LEVOTHYROXINE 50 MCG TABLET PO SCH (05:08)
[2022-02-17 06:13] VITALS: BP 142/80
[2022-02-17] MEDS: ACYCLOVIR 200 MG CAPSULE PO SCH ×2 (08:39→20:13)
[2022-02-17] MEDS: OLANZapine 5 MG TABLET PO SCH ×2 (08:39→20:12)
[2022-02-17] MEDS: buPROPion XL 300 MG TAB.ER.24H. PO SCH (08:39)
[2022-02-17] MEDS: CYANOCOBALAMIN (VITAMIN B-12) 1,000 MCG TABLET. PO SCH (08:39)
[2022-02-17] MEDS: ASPIRIN ENTERIC COATED 81 MG TABLET.DR. PO SCH (08:39)
[2022-02-17] MEDS: CHOLECALCIFEROL (VITAMIN D3) 1,000 UNIT TABLET PO SCH (08:39)
[2022-02-17] MEDS: MULTIVITAMIN with MINERAL TABLET. PO SCH (08:39)
[2022-02-17] MEDS: LACTOBACILLUS RHAMNOSUS GG 1 CAPSULE. PO SCH (08:39)
[2022-02-17] MEDS: CEFDINIR 300 MG CAPSULE PO SCH ×2 (08:39→20:12)
[2022-02-17] MEDS: metFORMIN 500 MG TABLET PO SCH ×2 (08:39→17:21)
[2022-02-17] MEDS: POLYMYXIN/TRIMETHOPRIM OPHTH SOLUTION 10ML BOTTLE. OU SCH ×4 (08:40→20:11)
[2022-02-17] MEDS: NYSTATIN TOPICAL POWDER 15GM BOTTLE. TP SCH ×2 (08:40→20:13)
[2022-02-17] MEDS: POLYVINYL ALCOHOL/POVIDONE/PF OPHTH SOLUTION DROPERETTE. OU SCH ×2 (08:40→20:11)
[2022-02-17] MEDS: LURASIDONE 40 MG TABLET. PO SCH (08:40)
[2022-02-17] MEDS: POLYETHYLENE GLYCOL 3350 17 GM PACKET. PO SCH (08:40)
[2022-02-17 15:43] VITALS: BP 148/82
[2022-02-17] MEDS: INSULIN GLARGINE SYRINGE. SQ SCH (20:10)
[2022-02-17] MEDS: DIVALPROEX ER 250 MG TAB.ER.24H. PO SCH (20:11)
--- NOTE | 2022-02-18 03:34 | PN ---
DATE: 02/16/2022 This is a late entry for the service date 02/16/2022. SUBJECTIVE: The patient was seen today, met with the staff. Chart was reviewed and covering for Dr. Serrano. The patient continues to show increased confusion, disorganized thinking, but some improvement as she is medication compliant and pleasant. OBJECTIVE: VITAL SIGNS: Temperature 98.3, blood pressure 141/69, pulse 85, respirations 18, O2 sat 99%. CURRENT MEDICATIONS: Bupropion 300 mg daily, olanzapine 2.5 mg twice a day, trazodone 50 mg at bedtime p.r.n., melatonin 6 mg at bedtime p.r.n., Depakote 750 mg at night, and lorazepam 1 mg at bedtime p.r.n. She is also on Latuda 80 mg daily. She is not having any side effects to medications. LABORATORY DATA: The patient's lab reviewed. ASSESSMENT: 1. Schizoaffective disorder. 2. Bipolar disorder, depressed. 3. Anxiety disorder, unspecified. PLAN: To continue treatment. LENGTH OF STAY: Five days. FARIDA DR: Ish TID: [id number]
--- NOTE | 2022-02-18 04:28 | PN ---
DATE: 02/17/2022 SUBJECTIVE: The patient was seen today, met with the staff. Chart was reviewed and also covering for Dr. Serrano. The patient's behavior remains the same. She is withdrawn, blunting of affect, noncommunicative most of the time, mostly nonverbal communication. OBSERVATION: VITAL SIGNS: Temperature 97.5, blood pressure 142/80, pulse 72, respirations 16, O2 sat 97%. GENERAL: Slept about 7 hours last night. The patient's appetite is fair. CURRENT MEDICATIONS: Bupropion 300 mg daily, olanzapine 2.5 mg twice a day, trazodone 50 mg at bedtime, melatonin 6 mg at bedtime, Depakote 750 mg at night, lorazepam 1 mg at bedtime p.r.n. She is also on Latuda 80 mg daily. The patient is not having any side effects to medications. LABORATORY DATA: The patient's lab reviewed. ASSESSMENT: 1. Schizoaffective disorder. 2. Bipolar disorder, depressed. 3. Anxiety disorder, unspecified. PLAN: To continue with treatment. LENGTH OF STAY: Five days. FARIDA DR: Ish TID: [id number]
[2022-02-18 05:58] VITALS: BP 122/56
[2022-02-18] MEDS: LEVOTHYROXINE 50 MCG TABLET PO SCH (06:16)
[2022-02-18] MEDS: MULTIVITAMIN with MINERAL TABLET. PO SCH (09:09)
[2022-02-18] MEDS: POLYMYXIN/TRIMETHOPRIM OPHTH SOLUTION 10ML BOTTLE. OU SCH ×4 (09:09→20:14)
[2022-02-18] MEDS: ACYCLOVIR 200 MG CAPSULE PO SCH ×2 (09:09→20:16)
[2022-02-18] MEDS: ASPIRIN ENTERIC COATED 81 MG TABLET.DR. PO SCH (09:09)
[2022-02-18] MEDS: NYSTATIN TOPICAL POWDER 15GM BOTTLE. TP SCH ×2 (09:09→20:18)
[2022-02-18] MEDS: POLYETHYLENE GLYCOL 3350 17 GM PACKET. PO SCH (09:09)
[2022-02-18] MEDS: POLYVINYL ALCOHOL/POVIDONE/PF OPHTH SOLUTION DROPERETTE. OU SCH ×2 (09:09→20:15)
[2022-02-18] MEDS: CYANOCOBALAMIN (VITAMIN B-12) 1,000 MCG TABLET. PO SCH (09:10)
[2022-02-18] MEDS: buPROPion XL 300 MG TAB.ER.24H. PO SCH (09:10)
[2022-02-18] MEDS: LACTOBACILLUS RHAMNOSUS GG 1 CAPSULE. PO SCH (09:10)
[2022-02-18] MEDS: metFORMIN 500 MG TABLET PO SCH ×2 (09:10→17:33)
[2022-02-18] MEDS: CEFDINIR 300 MG CAPSULE PO SCH ×2 (09:10→20:16)
[2022-02-18] MEDS: OLANZapine 5 MG TABLET PO SCH ×2 (09:10→20:14)
[2022-02-18] MEDS: LURASIDONE 40 MG TABLET. PO SCH (09:10)
[2022-02-18] MEDS: CHOLECALCIFEROL (VITAMIN D3) 1,000 UNIT TABLET PO SCH (09:10)
[2022-02-18 16:08] VITALS: BP_SYST 151; BP_DIAS 84; BP_DIAS 92
[2022-02-18] MEDS: DIVALPROEX ER 250 MG TAB.ER.24H. PO SCH (20:15)
[2022-02-18] MEDS: MAGNESIUM HYDROXIDE 2,400 MG/30 ML ORAL.SUSP. PO PRN (20:17)
[2022-02-18] MEDS: INSULIN GLARGINE SYRINGE. SQ SCH (20:17)
--- NOTE | 2022-02-19 00:16 | PN ---
DATE: 02/18/2022 SUBJECTIVE: The patient was seen today, met with the staff and chart reviewed. Also, covering for Dr. Serrano. Staff reports increased confusion, disorganized thinking, delusional and also admits she is having visual hallucinations, mostly of food trays and admits to being scared because of the hallucinations. The patient also refusing to take shower. OBSERVATION: VITAL SIGNS: Temperature 96.6, blood pressure 122/56, pulse 74, respirations 16, O2 sat 96%. GENERAL: Slept about 7 hours last night. The patient's appetite decreased. CURRENT MEDICATIONS: Bupropion 300 mg daily, olanzapine 2.5 mg twice a day, trazodone 50 mg at bedtime, melatonin 6 mg at bedtime, Depakote 750 mg at night, lorazepam 1 mg at bedtime p.r.n. and Latuda 80 mg daily. The patient is not having any side effects to medications. The patient apparently has shown some improvement. She is able to hold a conversation, able to make eye contact. LABORATORY DATA: The patient's lab reviewed. Hemoglobin 11.5. ASSESSMENT: 1. Schizoaffective disorder. 2. Bipolar disorder, depressed. 3. Anxiety disorder, unspecified. PLAN: To continue with the treatment. LENGTH OF STAY: Five days. RAND DR: DARY/bk TID: [id number]
[2022-02-19] MEDS: LEVOTHYROXINE 50 MCG TABLET PO SCH (06:07)
[2022-02-19 06:11] VITALS: BP 128/77
[2022-02-19 06:53] LABS: ALBUMIN 2.7 g/dL (3.4-5.0); CALCIUM 8.8 mg/dL (8.5-10.1); CREATININE 0.8 mg/dL (0.6-1.0); GFR 70.7; POTASSIUM 3.8 mmol/L (3.5-5.1); TOTAL BILIRUBIN 0.3 mg/dL (0.2-1.0); TOTAL PROTEIN 5.4 g/dL (6.4-8.2)
[2022-02-19 07:25] LABS: BASO % 1 % (0-3); EOS % 0 % (0-3); HEMATOCRIT 34.5 % (36.0-47.0); HEMOGLOBIN 11.6 g/dL (12.0-15.5); LYMPH # 1.2 x10^3/uL (1.0-4.8); LYMPH % 24 % (24-48); MEAN CORPUSCULAR HEMOGLOBIN 30 pg (25-35); MEAN CORPUSCULAR HGB CONC 34 g/dL (31-37); MEAN CORPUSCULAR VOLUME 90 fL (79-100); MONO # 0.4 x10^3/uL (0.0-1.1); MONO % 8 % (0-9); NEUT # 3.3 x10^3uL (1.8-7.7); NEUT % 67 % (31-73); PLATELET COUNT 183 x10^3/uL (140-400); RED BLOOD COUNT 3.83 x10^6/uL (3.50-5.40); RED CELL DISTRIBUTION WIDTH 14.1 % (11.5-14.5)
[2022-02-19] MEDS: LURASIDONE 40 MG TABLET. PO SCH (08:48)
[2022-02-19] MEDS: buPROPion XL 300 MG TAB.ER.24H. PO SCH (08:48)
[2022-02-19] MEDS: POLYETHYLENE GLYCOL 3350 17 GM PACKET. PO SCH (08:48)
[2022-02-19] MEDS: NYSTATIN TOPICAL POWDER 15GM BOTTLE. TP SCH ×2 (08:48→20:16)
[2022-02-19] MEDS: LACTOBACILLUS RHAMNOSUS GG 1 CAPSULE. PO SCH (08:48)
[2022-02-19] MEDS: CHOLECALCIFEROL (VITAMIN D3) 1,000 UNIT TABLET PO SCH (08:48)
[2022-02-19] MEDS: metFORMIN 500 MG TABLET PO SCH ×2 (08:48→17:16)
[2022-02-19] MEDS: ASPIRIN ENTERIC COATED 81 MG TABLET.DR. PO SCH (08:48)
[2022-02-19] MEDS: POLYVINYL ALCOHOL/POVIDONE/PF OPHTH SOLUTION DROPERETTE. OU SCH ×2 (08:48→20:16)
[2022-02-19] MEDS: CYANOCOBALAMIN (VITAMIN B-12) 1,000 MCG TABLET. PO SCH (08:48)
[2022-02-19] MEDS: CEFDINIR 300 MG CAPSULE PO SCH ×2 (08:48→20:15)
[2022-02-19] MEDS: MULTIVITAMIN with MINERAL TABLET. PO SCH (08:48)
[2022-02-19] MEDS: ACYCLOVIR 200 MG CAPSULE PO SCH ×2 (08:49→20:15)
[2022-02-19] MEDS: OLANZapine 5 MG TABLET PO SCH ×2 (08:49→20:15)
[2022-02-19 16:08] VITALS: BP 144/78
[2022-02-19] MEDS: DIVALPROEX ER 250 MG TAB.ER.24H. PO SCH (20:16)
[2022-02-19] MEDS: INSULIN GLARGINE SYRINGE. SQ SCH (20:43)
[2022-02-20] MEDS: LEVOTHYROXINE 50 MCG TABLET PO SCH (05:48)
[2022-02-20 06:08] VITALS: BP 116/67
--- NOTE | 2022-02-20 07:06 | PN ---
DATE: 02/19/2022 SUBJECTIVE: The patient was seen today, met with the staff, chart reviewed, and also covering for Dr. Serrano. Staff reports blunting of affect, some improvement with her interaction with the staff and no major behavior problems. OBSERVATION: VITAL SIGNS: Temperature 97.2, blood pressure 144/78, pulse 77, respirations 16, O2 sat 95%. GENERAL: Slept about 7 hours last night. CURRENT MEDICATIONS: Bupropion 300 mg daily, olanzapine 2.5 mg twice a day, trazodone 50 mg at bedtime, melatonin 6 mg at bedtime, Depakote 750 mg at night, lorazepam 1 mg at bedtime p.r.n., and Latuda 80 mg daily. The patient is not having any side effects. LABORATORY DATA: The patient's lab reviewed. ASSESSMENT: 1. Schizoaffective disorder. 2. Bipolar disorder, depressed. 3. Anxiety disorder, unspecified. PLAN: To continue with the treatment. LENGTH OF STAY: 5 days. DARY/LAXMI/JOSEFINA DR: Ish TID: [id number]
[2022-02-20] MEDS: POLYVINYL ALCOHOL/POVIDONE/PF OPHTH SOLUTION DROPERETTE. OU SCH ×2 (08:48→19:55)
[2022-02-20] MEDS: CHOLECALCIFEROL (VITAMIN D3) 1,000 UNIT TABLET PO SCH (08:49)
[2022-02-20] MEDS: ASPIRIN ENTERIC COATED 81 MG TABLET.DR. PO SCH (08:49)
[2022-02-20] MEDS: buPROPion XL 300 MG TAB.ER.24H. PO SCH (08:49)
[2022-02-20] MEDS: ACYCLOVIR 200 MG CAPSULE PO SCH ×2 (08:49→19:55)
[2022-02-20] MEDS: metFORMIN 500 MG TABLET PO SCH ×2 (08:49→17:31)
[2022-02-20] MEDS: LACTOBACILLUS RHAMNOSUS GG 1 CAPSULE. PO SCH (08:49)
[2022-02-20] MEDS: POLYETHYLENE GLYCOL 3350 17 GM PACKET. PO SCH (08:49)
[2022-02-20] MEDS: CYANOCOBALAMIN (VITAMIN B-12) 1,000 MCG TABLET. PO SCH (08:49)
[2022-02-20] MEDS: LURASIDONE 40 MG TABLET. PO SCH (08:49)
[2022-02-20] MEDS: OLANZapine 5 MG TABLET PO SCH ×2 (08:50→19:56)
[2022-02-20] MEDS: CEFDINIR 300 MG CAPSULE PO SCH (08:50)
[2022-02-20] MEDS: NYSTATIN TOPICAL POWDER 15GM BOTTLE. TP SCH ×2 (08:50→19:56)
[2022-02-20] MEDS: MULTIVITAMIN with MINERAL TABLET. PO SCH (08:50)
[2022-02-20] MEDS ORDERED: MAGNESIUM CITRATE 296 ML SOLUTION. PO ONE (09:45)
[2022-02-20 16:14] VITALS: BP 120/73
[2022-02-20] MEDS: DIVALPROEX ER 250 MG TAB.ER.24H. PO SCH (19:56)
[2022-02-20] MEDS: INSULIN GLARGINE SYRINGE. SQ SCH (20:51)
[2022-02-21] MEDS: LEVOTHYROXINE 50 MCG TABLET PO SCH (05:00)
[2022-02-21 06:24] VITALS: BP 119/72
[2022-02-21] MEDS: ACYCLOVIR 200 MG CAPSULE PO SCH ×2 (08:13→20:07)
[2022-02-21] MEDS: LURASIDONE 40 MG TABLET. PO SCH (08:13)
[2022-02-21] MEDS: POLYETHYLENE GLYCOL 3350 17 GM PACKET. PO SCH (08:13)
[2022-02-21] MEDS: CHOLECALCIFEROL (VITAMIN D3) 1,000 UNIT TABLET PO SCH (08:13)
[2022-02-21] MEDS: OLANZapine 5 MG TABLET PO SCH ×2 (08:13→20:06)
[2022-02-21] MEDS: buPROPion XL 300 MG TAB.ER.24H. PO SCH (08:13)
[2022-02-21] MEDS: MULTIVITAMIN with MINERAL TABLET. PO SCH (08:14)
[2022-02-21] MEDS: ASPIRIN ENTERIC COATED 81 MG TABLET.DR. PO SCH (08:14)
[2022-02-21] MEDS: LACTOBACILLUS RHAMNOSUS GG 1 CAPSULE. PO SCH (08:14)
[2022-02-21] MEDS: NYSTATIN TOPICAL POWDER 15GM BOTTLE. TP SCH ×2 (08:14→20:11)
[2022-02-21] MEDS: CYANOCOBALAMIN (VITAMIN B-12) 1,000 MCG TABLET. PO SCH (08:14)
[2022-02-21] MEDS: POLYVINYL ALCOHOL/POVIDONE/PF OPHTH SOLUTION DROPERETTE. OU SCH ×2 (08:14→20:07)
[2022-02-21] MEDS: metFORMIN 500 MG TABLET PO SCH ×2 (08:14→17:08)
--- NOTE | 2022-02-21 13:53 | PN ---
DATE: 02/20/2022 SUBJECTIVE: The patient was seen today, met with the staff, chart reviewed and covering for Dr. Serrano. The patient is still confused, disorganized, delusional, continues to have auditory and visual hallucinations, also having difficulty comprehending her surroundings, stays in a chair most of the time. The patient continues to show decreased psychomotor activity and also some catatonic symptoms. OBSERVATION: VITAL SIGNS: Temperature 97.0, blood pressure 120/73, pulse 67, respirations 16, O2 sat 97%. GENERAL: Slept about 7 hours last night. CURRENT MEDICATIONS: Bupropion 300 mg daily, olanzapine 2.5 mg twice a day, trazodone 50 mg at bedtime p.r.n., melatonin 6 mg at bedtime p.r.n., Depakote 750 mg at night, lorazepam 1 mg at bedtime p.r.n., Latuda 80 mg daily. The patient is not having any side effects to medications. LABORATORY DATA: The patient's lab reviewed. ASSESSMENT: 1. Schizoaffective disorder. 2. Bipolar disorder, depressed. 3. Anxiety disorder, unspecified. CATHY DR: Ish TID: [id number]
[2022-02-21 16:23] VITALS: BP 140/81
[2022-02-21] MEDS: DIVALPROEX ER 250 MG TAB.ER.24H. PO SCH (20:06)
[2022-02-21] MEDS: INSULIN GLARGINE SYRINGE. SQ SCH (20:10)
[2022-02-22] MEDS: LEVOTHYROXINE 50 MCG TABLET PO SCH (06:00)
[2022-02-22 06:15] LABS: ALBUMIN 2.7 g/dL (3.4-5.0); ALK PHOS 79 U/L (46-116); ALT (SGPT) 36 U/L (14-59); ANION GAP 8 (6-14); AST (SGOT) 23 U/L (15-37); BLOOD UREA NITROGEN 19 mg/dL (7-20); BUN/CREATININE RATIO 21 (6-20); CALCIUM 8.9 mg/dL (8.5-10.1); CARBON DIOXIDE 29 mmol/L (21-32); CHLORIDE 107 mmol/L (98-107); CREATININE 0.9 mg/dL (0.6-1.0); GFR 61.7; GLUCOSE 103 mg/dL (70-99); POTASSIUM 3.7 mmol/L (3.5-5.1); SODIUM 144 mmol/L (136-145); TOTAL BILIRUBIN 0.3 mg/dL (0.2-1.0); TOTAL PROTEIN 5.5 g/dL (6.4-8.2); VAL ACID 51 mcg/mL (50-100)
[2022-02-22 06:22] VITALS: BP 120/74
[2022-02-22 06:24] LABS: BASO % 1 % (0-3); EOS % 0 % (0-3); HEMATOCRIT 36.2 % (36.0-47.0); HEMOGLOBIN 12.2 g/dL (12.0-15.5); LYMPH # 1.3 x10^3/uL (1.0-4.8); LYMPH % 28 % (24-48); MEAN CORPUSCULAR HEMOGLOBIN 30 pg (25-35); MEAN CORPUSCULAR HGB CONC 34 g/dL (31-37); MEAN CORPUSCULAR VOLUME 90 fL (79-100); MONO # 0.4 x10^3/uL (0.0-1.1); MONO % 8 % (0-9); NEUT % 64 % (31-73); PLATELET COUNT 168 x10^3/uL (140-400); RED BLOOD COUNT 4.04 x10^6/uL (3.50-5.40); RED CELL DISTRIBUTION WIDTH 14.3 % (11.5-14.5); WHITE BLOOD COUNT 4.7 x10^3/uL (4.0-11.0)
[2022-02-22] MEDS ORDERED: DIPHENOXYLATE/ATROPINE TABLET. PO PRN (06:30)
[2022-02-22] MEDS: POLYETHYLENE GLYCOL 3350 17 GM PACKET. PO SCH (09:00)
[2022-02-22] MEDS: NYSTATIN TOPICAL POWDER 15GM BOTTLE. TP SCH ×2 (09:00→20:19)
[2022-02-22] MEDS: OLANZapine 5 MG TABLET PO SCH ×2 (09:38→20:19)
[2022-02-22] MEDS: ASPIRIN ENTERIC COATED 81 MG TABLET.DR. PO SCH (09:38)
[2022-02-22] MEDS: MULTIVITAMIN with MINERAL TABLET. PO SCH (09:38)
[2022-02-22] MEDS: LACTOBACILLUS RHAMNOSUS GG 1 CAPSULE. PO SCH (09:38)
[2022-02-22] MEDS: ACYCLOVIR 200 MG CAPSULE PO SCH ×2 (09:38→20:19)
[2022-02-22] MEDS: metFORMIN 500 MG TABLET PO SCH ×2 (09:38→17:53)
[2022-02-22] MEDS: buPROPion XL 300 MG TAB.ER.24H. PO SCH (09:38)
[2022-02-22] MEDS: LURASIDONE 40 MG TABLET. PO SCH (09:38)
[2022-02-22] MEDS: CYANOCOBALAMIN (VITAMIN B-12) 1,000 MCG TABLET. PO SCH (09:39)
[2022-02-22] MEDS: CHOLECALCIFEROL (VITAMIN D3) 1,000 UNIT TABLET PO SCH (09:39)
[2022-02-22] MEDS: POLYVINYL ALCOHOL/POVIDONE/PF OPHTH SOLUTION DROPERETTE. OU SCH ×2 (09:39→20:21)
[2022-02-22] MEDS ORDERED: FUROSEMIDE 40 MG TABLET PO ONE (10:45)
[2022-02-22 16:36] VITALS: BP 147/83
[2022-02-22] MEDS: DIVALPROEX ER 250 MG TAB.ER.24H. PO SCH (20:19)
[2022-02-22] MEDS: INSULIN GLARGINE SYRINGE. SQ SCH (20:20)
--- NOTE | 2022-02-23 04:46 | PN ---
DATE: 02/22/2022 SUBJECTIVE: The patient was seen today, met with the staff. Chart was reviewed and covering for Dr. Serrano. Also participated in the treatment review meeting. The patient is eating roughly 75% of her meals and sleeping at least 7-1/2 hours per night. She continues to need staff assistance to be fed during meals. Staff also reports that she has been hallucinating. Also planning for discharge sometime next week. The patient continues to have catatonic symptoms, decreased psychomotor activity and also blunting of affect. OBSERVATION: VITAL SIGNS: Temperature 98.2, blood pressure 147/83, pulse 91, respirations 18, O2 sat 98%. CURRENT MEDICATIONS: Bupropion 300 mg daily, olanzapine 2.5 mg twice a day, trazodone 50 mg at bedtime p.r.n., melatonin 6 mg at bedtime p.r.n. She is also on Depakote 750 mg at night, lorazepam 1 mg at bedtime p.r.n. and Latuda 80 mg daily. The patient is not having any side effects to the medications. LABORATORY DATA: The patient's lab reviewed. ASSESSMENT: 1. Schizoaffective disorder. 2. Bipolar disorder. 3. Anxiety disorder, unspecified. PLAN: To continue with the treatment. LENGTH OF STAY: Five days. FARIDA DR: Ish TID: [id number]
[2022-02-23] MEDS: LEVOTHYROXINE 50 MCG TABLET PO SCH (05:13)
[2022-02-23 05:48] VITALS: BP 123/78
[2022-02-23] MEDS: CYANOCOBALAMIN (VITAMIN B-12) 1,000 MCG TABLET. PO SCH (08:09)
[2022-02-23] MEDS: POLYETHYLENE GLYCOL 3350 17 GM PACKET. PO SCH (08:09)
[2022-02-23] MEDS: MULTIVITAMIN with MINERAL TABLET. PO SCH (08:09)
[2022-02-23] MEDS: metFORMIN 500 MG TABLET PO SCH ×2 (08:10→17:41)
[2022-02-23] MEDS: ASPIRIN ENTERIC COATED 81 MG TABLET.DR. PO SCH (08:10)
[2022-02-23] MEDS: ACYCLOVIR 200 MG CAPSULE PO SCH ×2 (08:10→20:15)
[2022-02-23] MEDS: OLANZapine 5 MG TABLET PO SCH ×2 (08:10→20:15)
[2022-02-23] MEDS: LACTOBACILLUS RHAMNOSUS GG 1 CAPSULE. PO SCH (08:10)
[2022-02-23] MEDS: CHOLECALCIFEROL (VITAMIN D3) 1,000 UNIT TABLET PO SCH (08:10)
[2022-02-23] MEDS: LURASIDONE 40 MG TABLET. PO SCH (08:10)
[2022-02-23] MEDS: POLYVINYL ALCOHOL/POVIDONE/PF OPHTH SOLUTION DROPERETTE. OU SCH ×2 (08:11→20:15)
[2022-02-23] MEDS: NYSTATIN TOPICAL POWDER 15GM BOTTLE. TP SCH ×2 (08:11→20:16)
[2022-02-23] MEDS: buPROPion XL 300 MG TAB.ER.24H. PO SCH (08:11)
[2022-02-23 15:36] VITALS: BP 107/70
[2022-02-23] MEDS: DIVALPROEX ER 250 MG TAB.ER.24H. PO SCH (20:15)
[2022-02-23] MEDS: INSULIN GLARGINE SYRINGE. SQ SCH (20:57)
--- NOTE | 2022-02-24 04:29 | PN ---
DATE: 02/23/2022 SUBJECTIVE: The patient was seen today, met with the staff. Chart was reviewed and covering for Dr. Serrano. Staff reports social withdrawal, minimal interaction with the staff, tend to isolate herself. Still having some catatonic symptoms and compliant with the medications. OBSERVATION: VITAL SIGNS: Temperature 97.1, blood pressure 107/70, pulse 83, respirations 16, O2 sat 98%. GENERAL: The patient's appetite improved. The patient slept about 9 hours last night. CURRENT MEDICATIONS: Bupropion 300 mg daily, olanzapine 2.5 mg twice a day, trazodone 50 mg at bedtime p.r.n., melatonin 6 mg at bedtime p.r.n. The patient is also on Depakote 750 mg at night, lorazepam 1 mg at bedtime p.r.n., Latuda 80 mg daily. She is not having any side effects to medications. LABORATORY DATA: The patient's lab reviewed. ASSESSMENT: 1. Schizoaffective disorder. 2. Bipolar disorder. 3. Anxiety disorder, unspecified. PLAN: To continue treatment. LENGTH OF STAY: Five days. FARIDA DR: Ish TID: [id number]
[2022-02-24] MEDS: LEVOTHYROXINE 50 MCG TABLET PO SCH (05:18)
[2022-02-24 05:51] VITALS: BP 113/57
[2022-02-24] MEDS: LURASIDONE 40 MG TABLET. PO SCH (08:25)
[2022-02-24] MEDS: LACTOBACILLUS RHAMNOSUS GG 1 CAPSULE. PO SCH (08:25)
[2022-02-24] MEDS: CYANOCOBALAMIN (VITAMIN B-12) 1,000 MCG TABLET. PO SCH (08:25)
[2022-02-24] MEDS: metFORMIN 500 MG TABLET PO SCH ×2 (08:26→17:15)
[2022-02-24] MEDS: buPROPion XL 300 MG TAB.ER.24H. PO SCH (08:26)
[2022-02-24] MEDS: ASPIRIN ENTERIC COATED 81 MG TABLET.DR. PO SCH (08:26)
[2022-02-24] MEDS: MULTIVITAMIN with MINERAL TABLET. PO SCH (08:26)
[2022-02-24] MEDS: CHOLECALCIFEROL (VITAMIN D3) 1,000 UNIT TABLET PO SCH (08:26)
[2022-02-24] MEDS: POLYVINYL ALCOHOL/POVIDONE/PF OPHTH SOLUTION DROPERETTE. OU SCH ×2 (08:27→20:20)
[2022-02-24] MEDS: NYSTATIN TOPICAL POWDER 15GM BOTTLE. TP SCH ×2 (08:27→20:20)
[2022-02-24] MEDS: ACYCLOVIR 200 MG CAPSULE PO SCH ×2 (08:27→20:20)
[2022-02-24] MEDS: OLANZapine 5 MG TABLET PO SCH ×2 (08:27→20:21)
[2022-02-24] MEDS: POLYETHYLENE GLYCOL 3350 17 GM PACKET. PO SCH (09:00)
[2022-02-24 16:10] VITALS: BP 146/85
[2022-02-24] MEDS: DIVALPROEX ER 250 MG TAB.ER.24H. PO SCH (20:20)
[2022-02-24] MEDS: INSULIN GLARGINE SYRINGE. SQ SCH (20:21)
--- NOTE | 2022-02-25 02:06 | PN ---
DATE: 02/24/2022 SUBJECTIVE: The patient was seen today, met with the staff. Chart was reviewed and covering for Dr. Serrano. Staff reports some improvement, still having blunting of affect and some catatonic symptoms, but able to interact with the staff. She is compliant with the medications: OBJECTIVE: VITAL SIGNS: Stable. GENERAL: The patient's appetite is fair. CURRENT MEDICATIONS: Bupropion 300 mg daily, olanzapine 2.5 mg twice a day, trazodone 50 mg at bedtime p.r.n., melatonin 6 mg at bedtime p.r.n. She is also on Depakote 750 mg at night, lorazepam 1 mg at bedtime p.r.n. and Latuda 80 mg daily. She is not having any side effects to medications. LABORATORY DATA: The patient's lab reviewed. ASSESSMENT: 1. Schizoaffective disorder. 2. Bipolar disorder. 3. Anxiety disorder, unspecified. PLAN: To continue with the treatment. LENGTH OF STAY: Five days. FAVIAN DR: Ish TID: [id number]
[2022-02-25] MEDS: LEVOTHYROXINE 50 MCG TABLET PO SCH (05:02)
[2022-02-25 05:58] VITALS: BP 120/69
[2022-02-25] MEDS: POLYVINYL ALCOHOL/POVIDONE/PF OPHTH SOLUTION DROPERETTE. OU SCH ×2 (08:17→20:34)
[2022-02-25] MEDS: OLANZapine 5 MG TABLET PO SCH ×2 (08:18→20:34)
[2022-02-25] MEDS: ACYCLOVIR 200 MG CAPSULE PO SCH ×2 (08:18→20:34)
[2022-02-25] MEDS: CYANOCOBALAMIN (VITAMIN B-12) 1,000 MCG TABLET. PO SCH (08:18)
[2022-02-25] MEDS: metFORMIN 500 MG TABLET PO SCH ×2 (08:18→17:32)
[2022-02-25] MEDS: CHOLECALCIFEROL (VITAMIN D3) 1,000 UNIT TABLET PO SCH (08:18)
[2022-02-25] MEDS: LACTOBACILLUS RHAMNOSUS GG 1 CAPSULE. PO SCH (08:18)
[2022-02-25] MEDS: POLYETHYLENE GLYCOL 3350 17 GM PACKET. PO SCH (08:19)
[2022-02-25] MEDS: NYSTATIN TOPICAL POWDER 15GM BOTTLE. TP SCH ×2 (08:19→20:34)
[2022-02-25] MEDS: buPROPion XL 300 MG TAB.ER.24H. PO SCH (08:19)
[2022-02-25] MEDS: LURASIDONE 40 MG TABLET. PO SCH (08:19)
[2022-02-25] MEDS: MULTIVITAMIN with MINERAL TABLET. PO SCH (08:19)
[2022-02-25] MEDS: ASPIRIN ENTERIC COATED 81 MG TABLET.DR. PO SCH (08:19)
[2022-02-25 16:06] VITALS: BP 148/83
[2022-02-25] MEDS: DIVALPROEX ER 250 MG TAB.ER.24H. PO SCH (20:34)
[2022-02-25] MEDS: INSULIN GLARGINE SYRINGE. SQ SCH (20:41)
[2022-02-25 22:16] LABS: CLARITY,URINE HAZY; COLOR,URINE YELLOW
[2022-02-25 22:17] LABS: BACTERIA,URINE MANY /HPF (0-FEW); GLUCOSE,URINE NEG (NEG); NITRITE,URINE POS (NEG); RBC,URINE 20-40 /HPF (0-2); SQUAMOUS EPITHELIAL CELL,UR FEW /LPF; UROBILINOGEN,URINE 0.2 mg/dL (0.2 mg/dL); WBC,URINE >40 /HPF (0-4)
[2022-02-26] MEDS: LEVOTHYROXINE 50 MCG TABLET PO SCH (05:13)
--- NOTE | 2022-02-26 05:24 | PN ---
DATE: 02/25/2022 SUBJECTIVE: The patient was seen today, met with the staff. Chart was reviewed. I am covering for Dr. Serrano. Staff reports she is compliant with the medications. The patient is oriented to surroundings. The patient still has problems communicating her feelings and needs. The patient admits to having visual hallucinations and apparently states she has reacted to it, but the patient is not able to elaborate. The patient mainly sees about food tray and also being in a weight loss program. The patient is on wheelchair. OBSERVATION: VITAL SIGNS: Temperature 97.2, blood pressure 120/69, pulse 72, respirations 16, O2 sat 96%. GENERAL: Slept about 8 hours last night. The patient's appetite is fair. LABORATORY DATA: The patient's lab reviewed. ASSESSMENT: 1. Schizoaffective disorder. 2. Bipolar disorder. 3. Anxiety disorder, unspecified. PLAN: To continue with the treatment. LENGTH OF STAY: Five days. NADIA DR: Ish TID: [id number]
[2022-02-26 05:37] VITALS: BP 139/69
[2022-02-26] MEDS: LURASIDONE 40 MG TABLET. PO SCH (08:35)
[2022-02-26] MEDS: CHOLECALCIFEROL (VITAMIN D3) 1,000 UNIT TABLET PO SCH (08:35)
[2022-02-26] MEDS: ACYCLOVIR 200 MG CAPSULE PO SCH ×2 (08:35→20:26)
[2022-02-26] MEDS: MULTIVITAMIN with MINERAL TABLET. PO SCH (08:35)
[2022-02-26] MEDS: LACTOBACILLUS RHAMNOSUS GG 1 CAPSULE. PO SCH (08:35)
[2022-02-26] MEDS: POLYVINYL ALCOHOL/POVIDONE/PF OPHTH SOLUTION DROPERETTE. OU SCH ×2 (08:35→20:26)
[2022-02-26] MEDS: NYSTATIN TOPICAL POWDER 15GM BOTTLE. TP SCH ×2 (08:35→20:35)
[2022-02-26] MEDS: ASPIRIN ENTERIC COATED 81 MG TABLET.DR. PO SCH (08:35)
[2022-02-26] MEDS: CYANOCOBALAMIN (VITAMIN B-12) 1,000 MCG TABLET. PO SCH (08:36)
[2022-02-26] MEDS: OLANZapine 5 MG TABLET PO SCH ×2 (08:36→20:26)
[2022-02-26] MEDS: metFORMIN 500 MG TABLET PO SCH ×2 (08:36→17:15)
[2022-02-26] MEDS: buPROPion XL 300 MG TAB.ER.24H. PO SCH (08:36)
[2022-02-26] MEDS: POLYETHYLENE GLYCOL 3350 17 GM PACKET. PO SCH (09:00)
[2022-02-26 16:13] VITALS: BP 122/72
[2022-02-26] MEDS: DIVALPROEX ER 250 MG TAB.ER.24H. PO SCH (20:26)
[2022-02-26] MEDS: INSULIN GLARGINE SYRINGE. SQ SCH (20:29)
--- NOTE | 2022-02-26 23:45 | PN ---
DATE: 02/26/2022 SUBJECTIVE: The patient was seen today, met with the staff, chart reviewed. I am covering for Dr. Serrano. Staff reports still being delusional, paranoid, withdrawn, disorganized thinking and medication compliant, not presenting with any major behavior problems. OBSERVATION: VITAL SIGNS: Temperature 97.1, blood pressure 122/72, pulse 76, respirations 18, O2 sat 98%. GENERAL: Slept about 7 hours last night and her appetite is fair. CURRENT MEDICATIONS: Bupropion 300 mg daily, olanzapine 2.5 mg twice a day, trazodone 50 mg at bedtime p.r.n., melatonin 6 mg at bedtime p.r.n., Depakote 750 mg at night, lorazepam 1 mg at bedtime p.r.n., Latuda 80 mg daily. The patient is not having any side effects to the medications. LABORATORY DATA: The patient's lab reviewed. ASSESSMENT: 1. Schizoaffective disorder. 2. Bipolar disorder. 3. Anxiety disorder, unspecified. PLAN: To continue with treatment. LENGTH OF STAY: Five days. DARY/NATTY DR: Ish TID: [id number]
[2022-02-27 05:38] VITALS: BP 117/77
[2022-02-27] MEDS: LEVOTHYROXINE 50 MCG TABLET PO SCH (06:00)
[2022-02-27] MEDS: OLANZapine 5 MG TABLET PO SCH ×2 (08:51→19:42)
[2022-02-27] MEDS: ACYCLOVIR 200 MG CAPSULE PO SCH ×2 (08:51→19:41)
[2022-02-27] MEDS: metFORMIN 500 MG TABLET PO SCH ×2 (08:51→17:15)
[2022-02-27] MEDS: POLYVINYL ALCOHOL/POVIDONE/PF OPHTH SOLUTION DROPERETTE. OU SCH ×2 (08:51→19:40)
[2022-02-27] MEDS: buPROPion XL 300 MG TAB.ER.24H. PO SCH (08:51)
[2022-02-27] MEDS: ASPIRIN ENTERIC COATED 81 MG TABLET.DR. PO SCH (08:51)
[2022-02-27] MEDS: CYANOCOBALAMIN (VITAMIN B-12) 1,000 MCG TABLET. PO SCH (08:51)
[2022-02-27] MEDS: LACTOBACILLUS RHAMNOSUS GG 1 CAPSULE. PO SCH (08:51)
[2022-02-27] MEDS: LURASIDONE 40 MG TABLET. PO SCH (08:51)
[2022-02-27] MEDS: CHOLECALCIFEROL (VITAMIN D3) 1,000 UNIT TABLET PO SCH (08:51)
[2022-02-27] MEDS: MULTIVITAMIN with MINERAL TABLET. PO SCH (08:51)
[2022-02-27] MEDS: NYSTATIN TOPICAL POWDER 15GM BOTTLE. TP SCH ×2 (08:52→19:42)
[2022-02-27] MEDS: POLYETHYLENE GLYCOL 3350 17 GM PACKET. PO SCH (08:52)
[2022-02-27 16:09] VITALS: BP 131/67
--- NOTE | 2022-02-27 16:22 | EKG ---
[address] [address] Test Date: 2022-02-08 Test Time: 19:22:21 Pat Name: FRANCIE PORTILLO Department: Room: [address] [place] [address] Gender: F [employer] Maintenance: : 1950 Requested By: PHI GLASER Order Number: [id number] Reading MD: Measurements Intervals Dix Rate: 87 P: [place]: QRS: 33 QRSD: 98 T: 71 QT: 391 QTc: 471 Interpretive Statements Atrial fibrillation Nonspecific T abnormalities, lateral leads No previous ECG available for comparison
[2022-02-27] MEDS: DIVALPROEX ER 250 MG TAB.ER.24H. PO SCH (19:41)
[2022-02-27] MEDS: INSULIN GLARGINE SYRINGE. SQ SCH (19:47)
== END 2022-02-28 | DRG 885 ==
LOC: ER 17:44 → EDBD 17:44 → GEROPSY 21:24
PROVIDERS: ADMIT Psychiatry & Neurology Psychiatry; ATTEND Psychiatry & Neurology Psychiatry
DX: F25.0 Schizoaffective disorder, bipolar type (principal); N18.9 Chronic kidney disease, unspecified; E11.65 Type 2 diabetes mellitus with hyperglycemia; F41.9 Anxiety disorder, unspecified; F30.9 Manic episode, unspecified; G30.9 Alzheimer's disease, unspecified; E11.649 Type 2 diabetes mellitus with hypoglycemia without coma; F63.9 Impulse disorder, unspecified; Z20.822 Contact with and (suspected) exposure to COVID-19; E03.9 Hypothyroidism, unspecified; E11.22 Type 2 diabetes mellitus with diabetic chronic kidney disease; E66.01 Morbid (severe) obesity due to excess calories; F02.80 Dementia in other diseases classified elsewhere, unspecified severity, without behavioral disturbance, psychotic disturbance, mood disturbance, and anxiety; G40.909 Epilepsy, unspecified, not intractable, without status epilepticus; H10.9 Unspecified conjunctivitis; I12.9 Hypertensive chronic kidney disease with stage 1 through stage 4 chronic kidney disease, or unspecified chronic kidney disease; M19.90 Unspecified osteoarthritis, unspecified site; Z79.899 Other long term (current) drug therapy; K21.9 Gastro-esophageal reflux disease without esophagitis; Z88.8 Allergy status to other drugs, medicaments and biological substances; Z68.33 Body mass index [BMI] 33.0-33.9, adult
CPT/HCPCS: 36415; 70450; 80053; 80061; 80164; 81001; 82140; 82306; 82947; 83036; 83540; 83550; 83735; 84436; 84443; 84480; 85025; 85379; 86592; 87077; 87086; 87177; 87186; 87209; 87425; 87426; 93005; J1815; U0003; 97535; 99285-25